=== PATIENT | male | born 1940 | race Hispanic/Latino ===

== ENCOUNTER 2018-03-14 11:45 | Inpatient (IN) | payer BC, MEDICARE ==
[2018-03-14] MEDS ORDERED: Vancomycin 1gm in NS 250ml 1 GM/250 ML BAG IVPB STA (11:59)
[2018-03-14 12:00] VITALS: BMI 25.1
--- NOTE | 2018-03-14 12:01 | ED PDOC ---
Arrival/HPI - General Time Seen by Provider: 03/14/18 11:54 - History of Present Illness Narrative History of Present Illness (Text): 03/14/18 12:00 Patient is a 78 y/o M presenting with cellulitis. PMD reports that he has been treating patient for worsening lower extremity edema. Recent echo negative. Patient arrived for follow-up visit today with PMD and was found to have weeping cellulitis to the extent that shoe was saturated. Patient reports that he has had a small wound to his R bullock x 3 months. He reports that it recently got bigger with extensive redness and worsening pain. Denies fever. Reports that he stopped taking his lasix 3 days ago 03/14/18 12:25 Family/Social History Family/Social History: No Known Family HX Allergies/Home Meds Allergies/Adverse Reactions: Allergies No Known Allergies Allergy (Verified 03/14/18 11:57) Home Medications: Home Meds Medication Instructions Recorded Confirmed Aspirin [Adult Aspirin] 1 tab PO DAILY 03/14/18 03/14/18 Clopidogrel [Plavix] 1 tab PO DAILY 03/14/18 03/14/18 Furosemide [Lasix] 1 tab PO TID 03/14/18 03/14/18 Levothyroxine Sodium [Levoxyl] 1 tab PO DAILY 03/14/18 03/14/18 Potassium Chloride [Klor-Con 1 cap PO DAILY 03/14/18 03/14/18 Sprinkle] Tamsulosin [Flomax] 1 cap PO DAILY 03/14/18 03/14/18 traMADol [Ultram] 1 tab PO DAILY PRN 03/14/18 03/14/18 Review of Systems - Review of Systems Constitutional: absent: Fatigue, Weight Change ENT: absent: Hearing Changes Respiratory: absent: SOB, Cough, Sputum, Wheezing Cardiovascular: Edema. absent: Chest Pain, Palpitations, Calf Pain, CHOW, Orthopnea, Syncope Gastrointestinal: absent: Abdominal Pain, Constipation, Diarrhea, Nausea, Vomiting Genitourinary Male: absent: Dysuria Musculoskeletal: Arthralgias Skin: Skin Lesions, Ulcer, Cellulitis Neurological: absent: Headache, Dizziness, Focal Weakness Endocrine: absent: Diaphoresis Hemo/Lymphatic: absent: Adenopathy Psychiatric: absent: Anxiety, Depression Physical Exam Vital Signs Temp Pulse Resp BP Pulse Ox 03/14/18 14:17 146/89 03/14/18 12:18 98.1 F 86 17 160/86 H 98 Temperature: Afebrile Blood Pressure: Normal Pulse: Regular Respiratory Rate: Normal Appearance: Positive for: Well-Appearing, Non-Toxic, Comfortable Pain Distress: None Mental Status: Positive for: Alert and Oriented X 3 - Systems Exam Head: Present: Atraumatic, Normocephalic Pupils: Present: PERRL Extroacular Muscles: Present: EOMI Conjunctiva: Present: Normal Neck: Present: Normal Range of Motion Respiratory/Chest: Present: Clear to Auscultation, Good Air Exchange. No: Respiratory Distress, Accessory Muscle Use Cardiovascular: Present: Regular Rate and Rhythm, Normal S1, S2. No: Murmurs Abdomen: No: Tenderness, Distention Upper Extremity: Present: Normal Inspection Lower Extremity: Present: Other (LLE: scant edema, RLE: pitting edema with weeping erythema extending into toes and to mid calf. Draining wound, worse at anterior surface of mid bullock. Warm. No calf tenderness. Normal ROM and strength. ) Neurological: Present: GCS=15, CN II-XII Intact Medical Decision Making ED Course and Treatment: 03/14/18 12:17 Patient has extensive cellulitis that crosses joint. He will need IV antibiotics and further evaluation by podiatry. His history is also complicated by femoral stent to R leg. Arterial duplex ordered due to hx of R femoral stent. Dose of lasix given due to home non-compliance. 03/14/18 12:26 EKG shows NSR at 86bpm wtih non-specific ST changes. Cxray negative 03/14/18 14:08 Duplex shows: 1. Severely abnormal ABIs at rest. 2. Aortoiliac disease. 3. Bilateral SFA disease. 4. The ankle and metatarsal waveforms are essentially flat bilaterally Dr. Cezar Escobar aware - RAD Interpretation Radiology Orders: 03/14/18 11:58 CHEST PORTABLE [RAD] Stat - Medication Orders Current Medication Orders: Discontinued Medications Furosemide (Lasix) 40 mg IVP STAT STA Stop: 03/14/18 12:39 Last Admin: 03/14/18 14:17 Dose: 40 mg MAR Blood Pressure Document 03/14/18 14:17 HP (Rec: 03/14/18 14:17 HP [id number]) Blood Pressure Blood Pressure (100/60-150/90) 146/89 IVP Administration Document 03/14/18 14:17 HP (Rec: 03/14/18 14:17 HP [id number]) Charges for Administration # of IVP Administrations 1 Vancomycin HCl (Vancomycin 1gm) 1 gm in 250 mls @ 167 mls/hr IVPB STAT STA PRN Reason: Protocol Stop: 03/14/18 13:28 Last Admin: 03/14/18 12:36 Dose: 167 mls/hr eMAR Start Stop Document 03/14/18 12:36 HP (Rec: 03/14/18 12:36 HP [id number]) Intravenous Solution Start Date 03/14/18 Start Time 12:36 End Date 03/14/18 End time 14:05 Total Infusion Time 89 Morphine Sulfate (Morphine) 2 mg IVP STAT STA Stop: 03/14/18 12:13 Last Admin: 03/14/18 12:35 Dose: 2 mg MAR Pain Assessment Document 03/14/18 12:35 HP (Rec: 03/14/18 12:36 HP [id number]) Pain Reassessment Is this a pain reassessment? No IVP Administration Document 03/14/18 12:35 HP (Rec: 03/14/18 12:36 HP [id number]) Charges for Administration # of IVP Administrations 1 Disposition/Present on Arrival - Present on Arrival Any Indicators Present on Arrival: No - Disposition Have Diagnosis and Disposition been Completed?: Yes Diagnosis: Cellulitis, Leg wound, right, Anemia, PVD (peripheral vascular disease) Disposition: HOSPITALIZED Disposition Time: 12:18 Patient Plan: Admission Patient Problems: Current Active Problems Problem Status Onset Anemia Acute Cellulitis Acute Leg wound, right Acute PVD (peripheral vascular disease) Acute Condition: FAIR
[2018-03-14] MEDS ORDERED: Morphine 4 mg/ml ISec IVP STA (12:12)
[2018-03-14 12:37] LABS: BASO # 0.02 K/mm3 (0.0-2.0); BASO % 0.2 % (0.0-3.0); EOS # 0.1 (0.0-0.7); EOS % 0.9 % (1.5-5.0); GRAN # 6.84 (1.4-6.5); GRAN % 74.1 % (50.0-68.0); HEMOGLOBIN 11.9 g/dL (14.0-18.0); LYMPH # 1.5 (1.2-3.4); LYMPH % 16.6 % (22.0-35.0); MEAN CELL VOLUME 87.4 fl (80.0-105.0); MEAN CORPUSCULAR HEMOGLOBIN 28.7 pg (25.0-35.0); MEAN CORPUSCULAR HGB CONC 32.9 g/dl (31.0-37.0); MEAN PLATELET VOLUME 9.9 fl (7.0-11.0); MONO # 0.8 (0.1-0.6); MONO % 8.2 % (1.0-6.0); RBC 4.14 10^6/uL (3.5-6.1); RED CELL DISTRIBUTION WIDTH 14.7 % (11.5-14.5); WHITE BLOOD COUNT 9.2 10^3/ul (4.5-11.0)
[2018-03-14 12:45] LABS: ALB/GLOB RATIO 1.3 (1.1-1.8); ALT/SGPT 27 U/L (7-56); AST/SGOT 29 U/L (17-59); BLOOD UREA NITROGEN 13 mg/dL (7-21); CALCIUM 9.4 mg/dL (8.4-10.5); GFR AFRICAN-AMERICAN > 60; GFR NON-AFRICAN AMERICAN > 60
--- NOTE | 2018-03-14 13:02 | RAD ---
HISTORY: lower extremity edema COMPARISON: No prior. FINDINGS: LUNGS: No active pulmonary disease. PLEURA: No significant pleural effusion identified, no pneumothorax apparent. CARDIOVASCULAR: Normal. OSSEOUS STRUCTURES: No significant abnormalities. VISUALIZED UPPER ABDOMEN: Normal. OTHER FINDINGS: None. IMPRESSION: No active disease.
--- NOTE | 2018-03-14 14:04 | US ---
PROCEDURE: Lower extremity JONAH exam HISTORY: Peripheral vascular disease. Previous stent 8 years ago. Nonhealing ulcer right lower extremity. PHYSICIAN(S): Yasir Reed MD. FINDINGS: The resting ABIs are severely abnormal. The right JONAH is not obtainable. The left JONHA is severely abnormal, 0.30 The brachial systolic pressures are symmetric. 50-70 mm gradients are seen between the arm and high thigh pressures bilaterally. The high thigh waveforms are pulsatile with relatively normal upstrokes. Findings are consistent with aortoiliac disease. The calf PVR waveforms are severely blunted and do not augment. This is consistent with bilateral SFA disease. The ankle and metatarsal waveforms are essentially flat bilaterally. IMPRESSION: 1. Severely abnormal ABIs at rest. 2. Aortoiliac disease. 3. Bilateral SFA disease. 4. The ankle and metatarsal waveforms are essentially flat bilaterally
[2018-03-14] MEDS ORDERED: Morphine 5 MG/ML SYRINGE IVP STA (15:31)
--- NOTE | 2018-03-14 15:40 | US ---
PROCEDURE: Right lower extremity venous US HISTORY: Leg pain and swelling. Evaluate for DVT. PHYSICIAN(S): Yasir Reed M.D. TECHNIQUE: Duplex sonography and color-flow Doppler with graded compression were used to evaluate the deep venous system of the right lower extremity. FINDINGS: The visualized deep venous system of the right lower extremity is sonographically normal and compressible. Normal waveforms and augmentation are seen. There is no sonographic evidence for deep venous thrombosis in the visualized segments of the right lower extremity. IMPRESSION: 1. No sonographic evidence for deep venous thrombosis in the visualized segments of the right lower extremity.
[2018-03-14] MEDS ORDERED: Sodium Chloride 0.9% 1,000 ML IV SCH (15:45)
[2018-03-14] MEDS ORDERED: Lidocaine 2% Inj (20ml) ONE (15:47)
[2018-03-14] MEDS ORDERED: Iodixanol 320 MG/ML 200 ML BOTTLE IV ONE (15:48)
[2018-03-14] MEDS ORDERED: Iodixanol 320 MG/ML 100 ML BOTTLE IV ONE ×2 (15:48→17:30)
[2018-03-14] MEDS ORDERED: Nitroglycerin 50mg in D5W 50 MG/250 ML BOTTLE IV ONE (15:51)
[2018-03-14] MEDS ORDERED: Midazolam 2 MG/2 ML VIAL ONE ×3 (16:36→17:13)
[2018-03-14] MEDS ORDERED: Verapamil 2 ML ONE (16:57)
[2018-03-14] MEDS ORDERED: Sodium Chloride 0.45% 1,000 ML IV SCH (19:00)
[2018-03-14] MEDS ORDERED: Morphine 4 mg/ml ISec ONE (19:26)
--- NOTE | 2018-03-14 19:29 | VASCULAR ---
PROCEDURE: 1. Abdominal aortogram and bilateral lower extremity runoff with right selective views 2. Right SFA CS I atherectomy, drug-eluting balloon angioplasty, and distal Supera stent placement 3. Right proximal to mid anterior tibial artery CS I atherectomy and balloon angioplasty 4. Left common iliac artery angioplasty and stent placement HISTORY: Severe peripheral vascular disease. Previous left SFA stent which has occluded. Pain and ischemic ulceration right calf and foot. Early rest pain left foot. PHYSICIAN(S): Yasir Reed M.D. TECHNIQUE: The relative risks and indications of the procedure were explained to the patient and his son and consent obtained. The patient was placed supine on the arteriogram table and the left groin prepped and draped in the usual sterile fashion. Conscious sedation and monitoring were provided throughout the procedure by a nurse. Via a left common femoral artery approach, a 5 St Helenian sheath was placed in the left groin. There was a stenosis of the mid left common iliac artery which initially impeded guidewire passage. Through the sheath and over a guidewire, a 5 St Helenian flush catheter was placed in the abdominal aorta at the level of the renal arteries and a PA DSA abdominal aortogram performed. The catheter was pulled down to the aortic bifurcation and bilateral oblique DSA pelvic arteriograms performed. Overlapping bilateral lower extremity DSA arteriograms were obtained from the inguinal ligaments to the ankles A 0.035 angled Glidewire was advanced over the bifurcation and placed in the proximal right SFA. A 7 St Helenian 45 cm destination sheath was placed in the right common femoral artery. Subintimal cross age of the diffuse disease in the right SFA was obtained. An out back catheter was necessary for re-entry in the adductor canal. 0.018 guidewire and catheter were used to cross the diffuse disease in the proximal to mid right anterior tibial artery. 0.017 support wire was placed at the ankle in the right anterior tibial artery. CS I atherectomy of the disease in the right popliteal artery below the knee was performed with a 1.25 micro justen. Right popliteal artery was dilated initially with a 4 mm balloon and subsequently with a 5 mm drug-eluting balloon. A good angiographic result was obtained. CS I atherectomy of the proximal to mid right anterior tibial artery was performed with 1.25 mm micro justen. Long segment dilatation of the right anterior tibial artery is proximal mid segment was performed with a 3.0 mm balloon. A good angiographic result was obtained. Diffuse disease in the right SFA was dilated with 5 mm, 6 mm, and 7 mm balloons. 6.5 x 120 mm Supera stent was placed in the mid to distal right SFA along a subintimal course. Is was dilated with 6 mm balloon. A good angiographic result was obtained. No significant gradient was demonstrated across the right common iliac artery. A 20 mm gradient was demonstrated across the left common iliac artery stenosis. The left common iliac artery was dilated with a 9 mm balloon. Subsequently a 10 mm x 59 mm balloon expandable stent was deployed in the left common iliac artery. Completion angiograms were performed. The sheath was removed hemostasis obtained with a Perclose device. The patient tolerated the procedure well. FINDINGS: There are single renal arteries bilaterally which are widely patent and normal in appearance. The nephrograms are symmetric in appearance. The infrarenal abdominal aorta is smoothly calcified and widely patent without radiographically significant stenosis.. There is a focal stenosis in the mid left common iliac artery. No pressure gradient was demonstrated across the calcified right common iliac artery. The internal iliac arteries are patent bilaterally. The external iliac arteries are patent bilaterally. Right lower extremity: The right common femoral artery is patent. The right profunda femoral artery is hypertrophied. There is severe diffuse multi focal disease of the entire right SFA. Multiple stenoses of the right popliteal artery above the knee are present. There is a critical stenosis of the distal right popliteal artery. There is severe right trifurcation and tibial occlusive disease. The right tibioperoneal trunk is occluded. The right anterior tibial artery is patent with multi focal severe disease in its proximal mid 3rd. There is a stenosis of the distal right anterior tibial artery. The right dorsalis pedis artery is patent. There is severe disease of the plantar arch. The right posterior tibial artery reconstitutes proximally. The right posterior tibial artery is occluded distally just above the ankle. Left lower extremity: Left common femoral artery is patent. The left profunda femoral artery is hypertrophied The left superficial femoral artery is occluded at its origin. The previously placed left SFA stent is occluded. There is reconstitution of the left popliteal artery above the patella. The left popliteal artery is continuous. There is severe left trifurcation disease. The left posterior tibial artery is occluded. There is severe disease of the proximal left anterior tibial artery. The left peroneal artery is poorly opacified.. IMPRESSION: 1.Successful long segment right SFA and popliteal CS I atherectomy, drug-eluting balloon angioplasty, and Supera stent placement. 2. Successful proximal to mid right anterior tibial artery CS I atherectomy and angioplasty. 3. Left common iliac artery angioplasty and stent placement. 4. Occluded left SFA stent. 5. Severe bilateral tibial occlusive disease.
[2018-03-14] MEDS: Morphine 5 MG/ML SYRINGE IVP PRN (19:30)
[2018-03-14] MEDS: Sodium Chloride 0.45% 1,000 ML IV SCH (21:04)
[2018-03-14] MEDS: Oxycodone/Acetaminophen 5/325 mg Tab PO PRN (21:05)
[2018-03-14] MEDS: Ceftaroline 600 MG in Sodium Chloride 0.9% 100 ML IVPB SCH (22:10)
[2018-03-14] MEDS ORDERED: HYDROmorphone 0.5 mg/0.5 ml ISec IVP ONE (23:58)
--- NOTE | 2018-03-15 06:35 | CP.PCM.PN ---
Subjective - Date & Time of Evaluation Date of Evaluation: 03/15/18 Time of Evaluation: 06:33 - Subjective Subjective: Patient was seen at bedside. He complained of pain in right leg more than left leg pain. Had received morphine sulfate 5 mg IV at 7:30PM in the ER and also received percocet 5/325 at 9PM. Has cellulitis of right leg. No other complaints. Medical record was reviewed. This 78 year old male was admitted for bilateral pedal edema. Has PMH of gout,tobacco use. Objective - Vital Signs/Intake and Output Vital Signs (last 24 hours): Temp Pulse Resp BP Pulse Ox 99.0 F 94 H 18 105/54 L 95 03/15/18 03:00 03/15/18 03:00 03/15/18 03:00 03/15/18 03:00 03/15/18 03:00 Intake and Output: 03/14/18 03/15/18 18:59 06:59 Intake Total 360 Output Total 250 Balance 110 - Medications Medications: Current Medications Acetaminophen (Tylenol 325mg Tab) 650 mg PO Q4H PRN PRN Reason: Pain, Mild (1-3) Aspirin (Ecotrin) 81 mg PO DAILY JUAN Clopidogrel Bisulfate (Plavix) 75 mg PO DAILY JUAN Furosemide (Lasix) 40 mg PO TID JUAN Sodium Chloride (Sodium Chloride 0.45%) 1,000 mls @ 100 mls/hr IV .Q10H [facility] Stop: 03/15/18 14:00 Last Admin: 03/14/18 21:04 Dose: 100 mls/hr Ceftaroline Fosamil 600 mg/ (Sodium Chloride) 100 mls @ 100 mls/hr IVPB Q12 JUAN PRN Reason: Protocol Stop: 03/21/18 22:01 Last Admin: 03/14/18 22:10 Dose: 100 mls/hr Levothyroxine Sodium (Synthroid) 50 mcg PO DAILY JUAN Morphine Sulfate (Morphine) 5 mg IVP Q6H PRN PRN Reason: Pain, severe (8-10) Last Admin: 03/14/18 19:30 Dose: 5 mg Ondansetron HCl (Zofran Inj) 4 mg IVP ONCE PRN PRN Reason: Nausea/Vomiting Oxycodone/Acetaminophen (Percocet 5/325 Mg Tab) 1 tab PO Q4H PRN PRN Reason: Pain, moderate (4-7) Stop: 03/17/18 18:48 Last Admin: 03/14/18 21:05 Dose: 1 tab Potassium Chloride (Klor-Con 10) 10 meq PO BRK JUAN Tamsulosin HCl (Flomax) 0.4 mg PO DAILY JUAN - Labs Labs: 03/14/18 12:30 03/14/18 12:30 - Constitutional Appears: Well, No Acute Distress - Head Exam Head Exam: ATRAUMATIC, NORMAL INSPECTION, NORMOCEPHALIC - Eye Exam Eye Exam: Normal appearance - ENT Exam ENT Exam: Normal External Ear Exam - Neck Exam Neck Exam: Normal Inspection - Respiratory Exam Respiratory Exam: NORMAL BREATHING PATTERN - Cardiovascular Exam Cardiovascular Exam: REGULAR RHYTHM. absent: JVD - GI/Abdominal Exam GI & Abdominal Exam: absent: Distended - Rectal Exam Rectal Exam: Deferred - Exam Additional comments: Deferred. - Extremities Exam Additional comments: both legs swilling present. L>R. Right leg erythema present. - Back Exam Back Exam: NORMAL INSPECTION - Neurological Exam Neurological Exam: Alert, Awake, Oriented x3 - Psychiatric Exam Psychiatric exam: Normal Affect, Normal Mood - Skin Skin Exam: Normal Color Assessment and Plan - Assessment and Plan (Free Text) Assessment: Cellulitis of right leg. History of gout . History of tobacco use. Anemia. Plan: Dilaudid 2 mg IV x 1. Continue present management.
[2018-03-15] MEDS: Morphine 5 MG/ML SYRINGE IVP PRN ×2 (06:57→15:09)
[2018-03-15 08:23] LABS: BASO # 0.02 K/mm3 (0.0-2.0); BASO % 0.2 % (0.0-3.0); EOS # 0.1 (0.0-0.7); EOS % 0.8 % (1.5-5.0); GRAN # 7.79 (1.4-6.5); HEMOGLOBIN 10.5 g/dL (14.0-18.0); LYMPH # 1.3 (1.2-3.4); LYMPH % 12.5 % (22.0-35.0); MEAN CELL VOLUME 87.1 fl (80.0-105.0); MEAN CORPUSCULAR HEMOGLOBIN 27.6 pg (25.0-35.0); MEAN CORPUSCULAR HGB CONC 31.6 g/dl (31.0-37.0); MEAN PLATELET VOLUME 10.5 fl (7.0-11.0); MONO % 9.5 % (1.0-6.0); RBC 3.81 10^6/uL (3.5-6.1); RED CELL DISTRIBUTION WIDTH 14.8 % (11.5-14.5); WHITE BLOOD COUNT 10.1 10^3/ul (4.5-11.0)
[2018-03-15 08:31] LABS: INR 1.31 (0.93-1.08); PROTHROMBIN TIME 15.2 SECONDS (9.4-12.5)
[2018-03-15 08:39] LABS: BLOOD UREA NITROGEN 15 mg/dL (7-21); CALCIUM 8.4 mg/dL (8.4-10.5); GFR AFRICAN-AMERICAN > 60; GFR NON-AFRICAN AMERICAN 53
--- NOTE | 2018-03-15 08:42 | CARD ---
APPROVED REPORT EKG Measurement Heart [id number] <Conclusion> Sinus rhythm with premature atrial complexes Nonspecific ST and T wave abnormality
--- NOTE | 2018-03-15 09:44 | HP ---
DATE OF EXAM: 03/14/2018 CHIEF COMPLAINT: Legs are swollen, terrible pain in the right leg. HISTORY OF PRESENT ILLNESS: This is a 78-year-old male, I have known for many many years who is seen in the office approximately 5 weeks ago for bilateral +2 soft edema of the lower extremities. He was started on diuretics. Labs were drawn. His renal function and liver function to be normal. Echocardiogram and thallium stress were ordered as part of cardiac workup. Patient had his echocardiogram at [facility] and returned yesterday for his thallium stress. His Lasix had been increased by the hose builder at the time of the echo but apparently patient stopped taking it some four days ago because he thought the Lasix was making him constipated. In course of that four days, the legs became a lot more swollen. He developed terrible pain in the right calf even at rest. The legs became red and started weeping. He went for thallium stress test yesterday at [facility] and was told by hose builder, it could not be done because of the weeping and the erythema. I spoke to the hose builder, who placed a call to me personally. We spoke and patient was advised to come to the office this morning. He was seen with wet socks and pants from the oozing from the right leg. He was barely able to walk because of pain and was sent to emergency room. In the ER, arterial Dopplers were done. Dr. Yasir Reed was called as he had placed a stent in his left femoral artery several years ago, cellulitic legs were treated with antibiotics. Ulcers were dressed. Patient was admitted and then taken to the vascular lab with Dr. Yasir Reed as his ABIs were markedly abnormal. Procedure went well with the right leg was recanalized to have good flow. A good pulse on the right. The pulse on the left is palpable, but weak. Overall this explains the severe pain in the leg at rest and perhaps the erythema, cellulitis. It does not explain the presentation of bilateral edema two weeks ago. Venous Dopplers were ordered as well as the CT scan of the abdomen to rule out any intraabdominal pathology causing either lymphatic or venous obstruction. PAST MEDICAL HISTORY: Negative for hypertension, diabetes, cholesterol, tuberculosis, asthma, seizures and COPD. He did have an episode of the gout in 2016. Past history is negative for stroke, TIA, MS, coronary artery disease or cancers of any type. Patient had hyperthyroidism in 1989, treated with radioiodine twice in 1991 and 1996 by and then by Dr. Padilla. He had a history of peptic ulcer disease with a right femoral stent placed by Dr. Yasir Reed on 04/21/2009. He also has a rectal fissure repair in 1969 by . He had a colonoscopy with Dr. Garza in 2008 and in 07/2016. He had a stress test in 11/2008. He gets the flu shot yearly. His last Pneumovax vaccine is in 2007 and then again in 2011. ALLERGIES: HE HAS NO KNOWN ALLERGIES. SOCIAL HISTORY: Quit smoking in 2009. Does not drink alcohol, drinks decaffeinated coffee and tea approximately 4 to 5 cups a day. FAMILY HISTORY: He has family history of colon cancer with his mother at the age 62. His father at age 56 of brain tumor. He is the oldest of two siblings. He has one sister who has history of depression. He is since 2014. He has three sons, Asher Velasco, (who is handicapped and lives with patient) and Miguel Angel. 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 The office record showed problem list include hyperthyroidism, peptic ulcer disease, benign prostatic hypertrophy and chronic low back pain. REVIEW OF SYSTEMS: Unobtainable as the patient is in severe right leg pain causing him to barely be able to ambulate. HOME MEDICATIONS: Include Levoxyl 50 mcg, aspirin 81, Flomax 0.4, Plavix 75, Lasix 20 to 60 mg daily and tramadol. PHYSICAL EXAMINATION: GENERAL: The patient was seen in the office earlier this morning and again in the recovery room late this evening. HEENT: On exam in the recovery room, head and neck are unremarkable. Conjunctivae are pink. Mucous membranes are moist. NECK: Supple without masses. LUNGS: Show good aeration, right and left. HEART: Regular, not tachycardic, no ectopy noted. ABDOMEN: Thin, soft. There was tenderness in the left upper quadrant near the groin at the insertion site. There is a weak, but palpable pulse on the left foot, but an even stronger pulse in the newly canalized right leg. IMPRESSION: 1. Five week history of bilateral pedal edema. 2. Normal recent echocardiogram, copy enclosed in patient's paper chart. 3. Peripheral artery disease with revascularization of the left femoral artery and stent in 2008. 4. History of tobacco use. 5. Marked cellulitis of the right lower extremity. PLAN: Emergent catheterization leg pain at rest and underlying ischemia of the right leg. There were also improved flow and antibiotics delivery into the right leg cellulitis. Unfortunately, he does not explain to me the reason for his five weeks history of bilateral pedal edema. Again renal function and hepatic function seems normal on labs. Echocardiogram is read just recently. We will check venous Dopplers bilaterally as well as CT scan of the abdomen to just rule out any lymphatic or venous obstruction. Infectious Disease consultants requested on antibiotics for the cellulitis. Close followup with Dr. Yasir Reed is appreciated, Cardiology opinion of Dr. Camarillo and Dr. Vasquez and for the sake of completing the stress test already ordered as an outpatient. Cezar Porter MD RHETT
[2018-03-15] MEDS ORDERED: POTASSIUM CHLORIDE PO SCH (10:00)
[2018-03-15] MEDS: Sodium Chloride 0.45% 1,000 ML IV SCH (10:09)
[2018-03-15] MEDS: Potassium Chloride 10 mEq ER Tab PO SCH (10:25)
[2018-03-15] MEDS: Oxycodone/Acetaminophen 5/325 mg Tab PO PRN ×2 (10:26→18:29)
[2018-03-15] MEDS: Ceftaroline 600 MG in Sodium Chloride 0.9% 100 ML IVPB SCH (10:27)
[2018-03-15] MEDS: Levothyroxine 50 MCG TAB PO SCH (10:27)
--- NOTE | 2018-03-15 14:07 | CP.PCM.CON ---
History of Present Illness - History of Present Illness History of Present Illness: 78 year old male with PMH of peptic ulcer disease, history of hyperthyroidism, gout, severe peripheral arterial disease S/P left sided stenting previously came in to [facility] [place] complaining of severe pain on the right foot and leg, associated with skin breakdown on the leg with weeping. The pain was worse on movement, but still occurred while at rest. He denies soaking his feet in water, denies walking barefoot on soil, no nausea or vomiting, no fever or chills, no headache or dizziness, no chest pain, no SOB, no diarrhea, no dysuria. The patient underwent angioplasty and stenting yesterday of occluded lower extremity blood vessels. Infectious diseases consult is requested to further evaluate and manage. Review of Systems - Review of Systems All systems: reviewed and no additional remarkable complaints except (as per HPI ) Past Patient History - Infectious Disease Hx of Infectious Diseases: None - Past Social History Smoking Status: Never Smoked - CARDIAC Hx Cardiac Disorders: Yes Hx Congestive Heart Failure: Yes Hx Peripheral Vascular Disease: Yes - PULMONARY Hx Respiratory Disorders: No - NEUROLOGICAL Hx Neurological Disorder: No - HEENT Hx HEENT Problems: No - RENAL Hx Chronic Kidney Disease: No - ENDOCRINE/METABOLIC Hx Endocrine Disorders: Yes Hx Hyperthyroidism: Yes (s/p thyroid ablation) Hx Hypothyroidism: Yes - HEMATOLOGICAL/ONCOLOGICAL Hx Blood Disorders: No - INTEGUMENTARY Hx Dermatological Problems: Yes Other/Comment: cellulitis to right lower extremity - MUSCULOSKELETAL/RHEUMATOLOGICAL Hx Musculoskeletal Disorders: Yes Hx Back Pain: Yes Hx Falls: No Other/Comment: unsteady gait - GASTROINTESTINAL Hx Gastrointestinal Disorders: No - GENITOURINARY/GYNECOLOGICAL Hx Genitourinary Disorders: Yes Other/Comment: BPH - PSYCHIATRIC Hx Psychophysiologic Disorder: No - SURGICAL HISTORY Hx Surgeries: Yes Other/Comment: R femoral stent. Thyroid Ablation Meds Allergies/Adverse Reactions: Allergies Allergy/AdvReac Type Severity Reaction Status Date / Time No Known Allergies Allergy Verified 03/14/18 11:57 - Medications Medications: Current Medications Acetaminophen (Tylenol 325mg Tab) 650 mg PO Q4H PRN PRN Reason: Pain, Mild (1-3) Aspirin (Ecotrin) 81 mg PO DAILY [facility] Clopidogrel Bisulfate (Plavix) 75 mg PO DAILY [facility] Furosemide (Lasix) 40 mg PO TID [facility] Sodium Chloride (Sodium Chloride 0.45%) 1,000 mls @ 100 mls/hr IV .Q10H [facility] Stop: 03/15/18 14:00 Last Admin: 03/15/18 10:09 Dose: 100 mls/hr Ceftaroline Fosamil 600 mg/ (Sodium Chloride) 100 mls @ 100 mls/hr IVPB Q12 [facility] PRN Reason: Protocol Stop: 03/21/18 22:01 Last Admin: 03/14/18 22:10 Dose: 100 mls/hr Levothyroxine Sodium (Synthroid) 50 mcg PO DAILY [facility] Morphine Sulfate (Morphine) 5 mg IVP Q6H PRN PRN Reason: Pain, severe (8-10) Last Admin: 03/15/18 06:57 Dose: 5 mg Ondansetron HCl (Zofran Inj) 4 mg IVP ONCE PRN PRN Reason: Nausea/Vomiting Oxycodone/Acetaminophen (Percocet 5/325 Mg Tab) 1 tab PO Q4H PRN PRN Reason: Pain, moderate (4-7) Stop: 03/17/18 18:48 Last Admin: 03/14/18 21:05 Dose: 1 tab Potassium Chloride (Klor-Con 10) 10 meq PO BRK [facility] Tamsulosin HCl (Flomax) 0.4 mg PO DAILY [facility] Physical Exam - Constitutional Appears: Chronically Ill - Head Exam Head Exam: NORMAL INSPECTION - ENT Exam ENT Exam: Mucous Membranes Moist - Neck Exam Neck exam: Negative for: Meningismus - Respiratory Exam Respiratory Exam: Decreased Breath Sounds - Cardiovascular Exam Cardiovascular Exam: +S1, +S2 - GI/Abdominal Exam GI & Abdominal Exam: Soft. absent: Tenderness - Extremities Exam Additional comments: right leg with some honey-crusted lesions on the lower leg area Results - Vital Signs Recent Vital Signs: Last Vital Signs Temp 98.3 F 03/15/18 08:17 Pulse 88 03/15/18 08:17 Resp 20 03/15/18 08:17 BP 110/57 L 03/15/18 08:17 Pulse Ox 97 03/15/18 08:17 - Labs Result Diagrams: 03/15/18 08:10 03/15/18 08:10 Labs: Laboratory Results - last 24 hr 03/14/18 03/14/18 03/15/18 12:30 12:30 08:10 WBC 9.2 RBC 4.14 Hgb 11.9 L Hct 36.2 L MCV 87.4 MCH 28.7 MCHC 32.9 RDW 14.7 H Plt Count 224 MPV 9.9 Gran % 74.1 H Lymph % (Auto) 16.6 L [place] % (Auto) 8.2 H Eos % (Auto) 0.9 L Baso % (Auto) 0.2 Gran # 6.84 H Lymph # (Auto) 1.5 [place] # (Auto) 0.8 H Eos # (Auto) 0.1 Baso # (Auto) 0.02 PT INR Sodium 139 138 Potassium 4.2 4.0 Chloride 100 101 Carbon Dioxide 29 28 Anion Gap 15 13 BUN 13 15 Creatinine 1.1 1.3 Est GFR ( Amer) > 60 > 60 Est GFR (Non-Af Amer) > 60 53 Random Glucose 110 110 Calcium 9.4 8.4 Phosphorus 3.6 Magnesium 1.9 Total Bilirubin 0.5 AST 29 ALT 27 Alkaline Phosphatase 82 Total Creatine Kinase 84 Total Protein 7.2 Albumin 4.0 Globulin 3.2 Albumin/Globulin Ratio 1.3 03/15/18 03/15/18 08:10 08:10 WBC 10.1 RBC 3.81 Hgb 10.5 L Hct 33.2 L MCV 87.1 MCH 27.6 MCHC 31.6 RDW 14.8 H Plt Count 214 MPV 10.5 Gran % 77.0 H Lymph % (Auto) 12.5 L [place] % (Auto) 9.5 H Eos % (Auto) 0.8 L Baso % (Auto) 0.2 Gran # 7.79 H Lymph # (Auto) 1.3 [place] # (Auto) 1.0 H Eos # (Auto) 0.1 Baso # (Auto) 0.02 PT 15.2 H INR 1.31 H Sodium Potassium Chloride Carbon Dioxide Anion Gap BUN Creatinine Est GFR ( Amer) Est GFR (Non-Af Amer) Random Glucose Calcium Phosphorus Magnesium Total Bilirubin AST ALT Alkaline Phosphatase Total Creatine Kinase Total Protein Albumin Globulin Albumin/Globulin Ratio Assessment & Plan - Assessment and Plan (Free Text) Plan: Assessment consider right leg skin and skin structure infection associated with severe peripheral vascular disease S/P angioplasty and stenting POD #1 peptic ulcer disease history of hyperthyroidism gout severe peripheral arterial disease S/P left sided stenting Plan Started patient on Teflaro pending blood and wound cx will monitor clinically
--- NOTE | 2018-03-15 15:55 | US ---
HISTORY: Leg pain and swelling. Evaluate for DVT PHYSICIAN(S): Yasir Reed MD. TECHNIQUE: Duplex sonography and color-flow Doppler with graded compression were used to evaluate the deep venous systems of both lower extremities. The exam is somewhat limited by edema. FINDINGS: The visualized deep venous systems of both lower extremities are sonographically normal and compressible. Normal wave forms and augmentation are seen. There is no sonographic evidence for deep venous thrombosis in the visualized segments of both lower extremities. IMPRESSION: No sonographic evidence for deep venous thrombosis in the visualized segments of both lower extremities.
[2018-03-15] MEDS: Magnesium Hydroxide Susp 30 ml UD PO PRN (18:24)
--- NOTE | 2018-03-16 00:10 | PN ---
DATE: 03/15/2018 DAILY PROGRESS NOTE SUBJECTIVE: The patient is a 78-year-old male with a history of gout, who is admitted with history of gout, congestive heart failure, benign prostatic hypertrophy, coronary artery disease, hypothyroidism, who was admitted yesterday with cellulitis and +2 soft edema of the lower extremities. The patient had apparently stopped taking his diuretics at home thinking that the furosemide was making him constipated. When seen today, he is awake, alert and oriented. He does complain of pain/burning in his legs. After his admission yesterday, the right lower extremity was revascularized by Dr. Yasir Reed. On admission, his chest x-ray showed no acute disease. EKG showed regular sinus rhythm with PACs. He is currently being currently being treated with ceftaroline 400 mg every 12 hours intravenously. He is also receiving aspirin, Flomax, K-Dur, Lasix 40 mg three times a day, morphine sulfate as needed for pain, Plavix and Synthroid. This morning, he was afebrile. Blood pressure is 110/57, heart rate is 88. White blood cell count this morning is 10.1, hemoglobin and hematocrit are 10.5 and 33.2, platelet count is 214. Sodium is 138, potassium 4, blood urea nitrogen 15, creatinine 1.3 and glucose is 110. When seen, the patient is lying in bed. He is awake, alert and oriented. He only complains of the burning sensation in his lower extremities; however, says it was bearable. He does admit to constipation, therefore milk of magnesia is ordered. We are continuing to follow the patient closely, continuing with his current regimen for antibiotics. The patient is also being followed by Dr. Dixon, the Infectious Disease specialist. The patient is to be reevaluated in the morning. Goyo Porter MD
[2018-03-16] MEDS: Morphine 5 MG/ML SYRINGE IVP PRN ×2 (07:05→13:36)
[2018-03-16] MEDS ORDERED: Iohexol 240 (50 ml) ONE (07:59)
[2018-03-16] MEDS: Potassium Chloride 10 mEq ER Tab PO SCH (10:31)
[2018-03-16] MEDS: Oxycodone/Acetaminophen 5/325 mg Tab PO PRN ×3 (10:31→22:20)
[2018-03-16] MEDS: Levothyroxine 50 MCG TAB PO SCH (10:31)
--- NOTE | 2018-03-16 13:48 | CP.PCM.PN ---
Subjective - Date & Time of Evaluation Date of Evaluation: 03/16/18 Time of Evaluation: 12:45 - Subjective Subjective: No fevers, not in distress, less pain in the right foot and leg but still with weeping. Objective - Vital Signs/Intake and Output Vital Signs (last 24 hours): Temp Pulse Resp BP Pulse Ox 100 F H 86 18 120/70 100 03/15/18 14:00 03/15/18 14:00 03/15/18 14:00 03/15/18 18:29 03/15/18 14:00 Intake and Output: 03/16/18 03/16/18 06:59 18:59 Intake Total 200 Output Total 200 Balance 0 - Medications Medications: Current Medications Acetaminophen (Tylenol 325mg Tab) 650 mg PO Q4H PRN PRN Reason: Pain, Mild (1-3) Last Admin: 03/15/18 17:13 Dose: 650 mg Aspirin (Ecotrin) 81 mg PO DAILY [facility] Last Admin: 03/15/18 10:24 Dose: 81 mg Clopidogrel Bisulfate (Plavix) 75 mg PO DAILY [facility] Last Admin: 03/15/18 10:26 Dose: 75 mg Furosemide (Lasix) 40 mg PO TID [facility] Last Admin: 03/15/18 18:29 Dose: 40 mg Ceftaroline Fosamil 400 mg/ (Sodium Chloride) 100 mls @ 100 mls/hr IVPB Q12 [facility] PRN Reason: Protocol Stop: 03/21/18 22:01 Last Admin: 03/15/18 22:02 Dose: 100 mls/hr Levothyroxine Sodium (Synthroid) 50 mcg PO DAILY [facility] Last Admin: 03/15/18 10:27 Dose: 50 mcg Magnesium Hydroxide (Milk Of Magnesia) 30 ml PO DAILY PRN PRN Reason: Constipation Last Admin: 03/15/18 18:24 Dose: 30 ml Morphine Sulfate (Morphine) 5 mg IVP Q6H PRN PRN Reason: Pain, severe (8-10) Last Admin: 03/16/18 07:05 Dose: 5 mg Ondansetron HCl (Zofran Inj) 4 mg IVP ONCE PRN PRN Reason: Nausea/Vomiting Oxycodone/Acetaminophen (Percocet 5/325 Mg Tab) 1 tab PO Q4H PRN PRN Reason: Pain, moderate (4-7) Stop: 03/17/18 18:48 Last Admin: 03/15/18 18:29 Dose: 1 tab Potassium Chloride (Klor-Con 10) 10 meq PO BRK [facility] Last Admin: 03/15/18 10:25 Dose: 10 meq Tamsulosin HCl (Flomax) 0.4 mg PO DAILY [facility] Last Admin: 03/15/18 10:24 Dose: 0.4 mg Tramadol HCl (Ultram) 50 mg PO QID [facility] Last Admin: 03/15/18 17:14 Dose: 50 mg - Labs Labs: 03/15/18 08:10 03/15/18 08:10 PT 15.2 SECONDS (9.4-12.5) H 03/15/18 08:10 INR 1.31 (0.93-1.08) H 03/15/18 08:10 - Constitutional Appears: Chronically Ill - Head Exam Head Exam: NORMAL INSPECTION - Neck Exam Neck Exam: absent: Meningismus - Respiratory Exam Respiratory Exam: Decreased Breath Sounds - Cardiovascular Exam Cardiovascular Exam: +S1, +S2 - GI/Abdominal Exam GI & Abdominal Exam: Soft. absent: Tenderness - Extremities Exam Additional comments: right foot and leg with dressings in place Assessment and Plan - Assessment and Plan (Free Text) Plan: Assessment consider right leg skin and skin structure infection associated with severe peripheral vascular disease S/P angioplasty and stenting POD #2, growing gram negative bacilli peptic ulcer disease history of hyperthyroidism gout severe peripheral arterial disease S/P left sided stenting Plan continue Teflaro day 2 pending identification and sensitivities of the gram negative bacilli in the wound cx will continue to monitor clinically
--- NOTE | 2018-03-16 16:05 | CT ---
PROCEDURE: CT Abdomen and Pelvis with Oral contrast. HISTORY: edema R/O pelvic mass, venous or lymph obstruction COMPARISON: None. TECHNIQUE: Contiguous axial images of the abdomen and pelvis. Oral contrast was administered. No IV contrast given. Coronal and Sagittal reformats generated. Radiation dose: Total exam DLP = This CT exam was performed using one or more of the following dose reduction techniques: Automated exposure control, adjustment of the mA and/or kV according to patient size, and/or use of iterative reconstruction technique. FINDINGS: LOWER THORAX: Minor interstitial changes are seen at the lung bases. No evidence of infiltrate or effusion. Visualized distal esophagus is unremarkable. Stomach is decompressed limiting evaluation. Duodenum is unremarkable. LIVER: Noncontrast images of the liver real evidence of probable small low-density cyst in the right lobe of the liver. No appreciable liver mass is seen elsewhere. No intrahepatic ductal dilatation is noted. GALLBLADDER AND BILE DUCTS: There is evidence of 2 calcified gallstones in the gallbladder. The gallbladder is mildly distended with some probable additional gallbladder sludge. No definite gallbladder wall thickening or pericholecystic fluid is noted. Common bile duct is normal in size. PANCREAS: Unremarkable. No mass. No ductal dilatation. SPLEEN: Unremarkable. No splenomegaly. ADRENALS: Unremarkable. KIDNEYS AND URETERS: Kidneys show no evidence of hydronephrosis. No perinephric changes are seen. Ureters are not dilated. BLADDER: Bladder is distended. No definite bladder wall thickening is seen. Prostate gland is top-normal in size. REPRODUCTIVE: Unremarkable. APPENDIX: Appendix is mildly enlarged but shows no evidence of periappendiceal inflammatory change. BOWEL: No bowel obstruction is seen. No pericolonic inflammatory changes are noted. PERITONEUM: Unremarkable. No fluid collection. No free air. LYMPH NODES: Unremarkable. No enlarged lymph nodes. VASCULATURE: There is moderate atherosclerotic change of the aorta without aneurysmal dilatation. There is additional calcifications seen in the celiac and splenic arteries and proximal renal artery is as well as the iliac bifurcation. BONES: No fracture or destructive lesion. OTHER FINDINGS: No enlarged inguinal hernias are seen. A few small scattered inguinal lymph nodes however are noted, nonspecific. IMPRESSION: No appreciable intra abdominal or pelvic mass. Nonspecific distended urinary bladder without significant prostate gland enlargement. No hydronephrosis. Two gallstones. Gallbladder is mildly distended with sludge although no wall thickening is seen.
--- NOTE | 2018-03-17 01:02 | PN ---
DATE: 03/16/2018 DAILY PROGRESS NOTE SUBJECTIVE: The patient is a 78-year-old male with a history of gout, congestive heart failure, benign prostatic hypertrophy, coronary artery disease and hypothyroidism, who was admitted with cellulitis and +2 soft edema of the lower extremities. During the hospital stay, his right lower extremity was revascularized by Dr. Yasir Reed. His chest x-ray showed no acute disease. EKG showed regular sinus rhythm with PACs. He is currently being treated with ceftaroline 400 mg every 12 hours intravenously. He is also receiving aspirin, Flomax, K-Dur, Lasix 40 three times a day, morphine sulfate as needed for pain, Plavix and Synthroid. When seen today, the patient is awake, alert and oriented. He complained of a burning sensation in both legs; however, relieved with the morphine sulfate. On physical exam, his lungs are clear anteriorly. Heart is regular. Abdomen is soft. The edema in the legs is decreased. Erythema persists in the right lower extremity. Cultures of the right lower extremity wound revealed gram negative rods. Further identification and sensitivities are pending. His vital signs are stable. So we are continuing with the current regimen and the patient is to be reevaluated in the morning. We will continue to follow him closely. Goyo Porter MD MTDD
[2018-03-17] MEDS: Oxycodone/Acetaminophen 5/325 mg Tab PO PRN ×2 (04:51→10:44)
[2018-03-17] MEDS: Potassium Chloride 10 mEq ER Tab PO SCH (08:25)
[2018-03-17] MEDS: Cefepime IV 2 gm in NS 2 GM/100 ML BAG IVPB SCH ×2 (10:29→22:08)
[2018-03-17] MEDS: Levothyroxine 50 MCG TAB PO SCH (10:34)
[2018-03-17] MEDS: Magnesium Hydroxide Susp 30 ml UD PO PRN (14:54)
--- NOTE | 2018-03-17 15:02 | CP.PCM.PN ---
Subjective - Date & Time of Evaluation Date of Evaluation: 03/17/18 Time of Evaluation: 14:05 - Subjective Subjective: Comfortable in bed, no fevers, not in distress. Still with burning pain in the right foot but a little better. Objective - Vital Signs/Intake and Output Vital Signs (last 24 hours): Temp Pulse Resp BP Pulse Ox 98.4 F 86 20 134/59 L 99 03/16/18 22:00 03/16/18 22:00 03/16/18 22:00 03/16/18 22:00 03/16/18 22:00 Intake and Output: 03/17/18 03/17/18 06:59 18:59 Intake Total 400 120 Output Total 800 Balance 400 -680 - Medications Medications: Current Medications Acetaminophen (Tylenol 325mg Tab) 650 mg PO Q4H PRN PRN Reason: Pain, Mild (1-3) Last Admin: 03/15/18 17:13 Dose: 650 mg Aspirin (Ecotrin) 81 mg PO DAILY [facility] Last Admin: 03/16/18 10:31 Dose: 81 mg Clopidogrel Bisulfate (Plavix) 75 mg PO DAILY [facility] Last Admin: 03/16/18 10:30 Dose: 75 mg Furosemide (Lasix) 40 mg PO TID [facility] Last Admin: 03/16/18 19:03 Dose: Not Given Cefepime HCl (Maxipime 2gm) 2 gm in 100 mls @ 100 mls/hr IVPB Q12 [facility] PRN Reason: Protocol Stop: 03/22/18 08:31 Levothyroxine Sodium (Synthroid) 50 mcg PO DAILY [facility] Last Admin: 03/16/18 10:31 Dose: 50 mcg Magnesium Hydroxide (Milk Of Magnesia) 30 ml PO DAILY PRN PRN Reason: Constipation Last Admin: 03/15/18 18:24 Dose: 30 ml Morphine Sulfate (Morphine) 5 mg IVP Q6H PRN PRN Reason: Pain, severe (8-10) Last Admin: 03/16/18 13:36 Dose: 5 mg Ondansetron HCl (Zofran Inj) 4 mg IVP ONCE PRN PRN Reason: Nausea/Vomiting Oxycodone/Acetaminophen (Percocet 5/325 Mg Tab) 1 tab PO Q4H PRN PRN Reason: Pain, moderate (4-7) Stop: 03/17/18 18:48 Last Admin: 03/17/18 04:51 Dose: 1 tab Potassium Chloride (Klor-Con 10) 10 meq PO BRK [facility] Last Admin: 03/17/18 08:25 Dose: 10 meq Tamsulosin HCl (Flomax) 0.4 mg PO DAILY [facility] Last Admin: 03/16/18 10:32 Dose: 0.4 mg Tramadol HCl (Ultram) 50 mg PO QID [facility] Last Admin: 03/16/18 22:59 Dose: Not Given - Labs Labs: 03/15/18 08:10 03/15/18 08:10 PT 15.2 SECONDS (9.4-12.5) H 03/15/18 08:10 INR 1.31 (0.93-1.08) H 03/15/18 08:10 - Constitutional Appears: Chronically Ill - Head Exam Head Exam: NORMAL INSPECTION - ENT Exam ENT Exam: Mucous Membranes Moist - Neck Exam Neck Exam: absent: Meningismus - Respiratory Exam Respiratory Exam: Decreased Breath Sounds - Cardiovascular Exam Cardiovascular Exam: +S1, +S2 - GI/Abdominal Exam GI & Abdominal Exam: Soft. absent: Tenderness - Extremities Exam Additional comments: left foot with dressings in place Assessment and Plan - Assessment and Plan (Free Text) Plan: Assessment consider right leg skin and skin structure infection associated with severe peripheral vascular disease S/P angioplasty and stenting POD #3, growing Acinetobacter peptic ulcer disease history of hyperthyroidism gout severe peripheral arterial disease S/P left sided stenting Plan changed antibiotics to Cefepime and will continue to monitor clinically
--- NOTE | 2018-03-18 01:26 | PN ---
DATE: 03/17/2018 DAILY PROGRESS NOTE SUBJECTIVE: The patient is a 78-year-old male with the history of gout, congestive heart failure, benign prostatic hypertrophy, coronary artery disease and hypothyroidism who is admitted to the [facility] on 03/14/2018 with cellulitis of the right lower extremity and edema of both lower extremities. The right lower extremity was revascularized by Dr. Yasir Reed during the hospital stay. Chest x-ray showed no acute disease. EKG showed regular sinus rhythm with PACs. He is being followed by Dr. Dixon, the Infectious Disease specialist and is treated with ceftaroline 400 mg every 12 hours. We are also continuing with his Synthroid and Lasix 40 mg three times a day for diuresis. When seen today, the patient is awake, alert and oriented. His son is at bedside. He still complains of some burning sensation in the legs. Cultures of the leg wound grew Acinetobacter, which is sensitive to Cipro, meropenem and Zosyn. So we are continuing with current regimen and we will continue to follow the patient closely, will be getting physical therapy for ambulation. Goyo Porter MD
[2018-03-18] MEDS: Levothyroxine 50 MCG TAB PO SCH (09:42)
[2018-03-18] MEDS: Magnesium Hydroxide Susp 30 ml UD PO PRN (09:42)
[2018-03-18] MEDS: Potassium Chloride 10 mEq ER Tab PO SCH (09:43)
[2018-03-18] MEDS ORDERED: Morphine 5 MG/ML SYRINGE IVP PRN (10:39)
[2018-03-18] MEDS: Cefepime IV 2 gm in NS 2 GM/100 ML BAG IVPB SCH ×2 (11:14→22:07)
--- NOTE | 2018-03-18 12:53 | PN ---
DATE: 03/18/2018 DAILY PROGRESS NOTE The patient is a 78-year-old male with a history of gout, congestive heart failure, benign prostatic hypertrophy, coronary artery disease and hypothyroidism who was admitted to the [facility] on 03/14/2018 with cellulitis of the right lower extremity and edema of both lower extremities. He underwent revascularization of the right lower extremities with Dr. Yasir Reed. Chest x-ray showed no acute disease. EKG showed regular sinus rhythm with PACs. He is being followed by Dr. Dixon, the Infectious Disease specialist and is being treated with ceftaroline 400 mg every 12 hours for Acinetobacter, which grew from the leg wounds. When seen today, the patient is feeling well and he still complains of constipation, for which we will give him milk of magnesia, reevaluate his blood work in the morning. As per Infectious Disease specialist, his antibiotic has been changed to cefepime and we will continue to follow the patient closely. Goyo Porter MD
--- NOTE | 2018-03-18 19:22 | CP.PCM.PN ---
Subjective - Date & Time of Evaluation Date of Evaluation: 03/18/18 Time of Evaluation: 12:30 - Subjective Subjective: Still with pain in the left foot but less, no fevers. Objective - Vital Signs/Intake and Output Vital Signs (last 24 hours): Temp Pulse Resp BP Pulse Ox 98 F 101 H 20 130/70 98 03/18/18 08:24 03/18/18 08:24 03/18/18 08:24 03/18/18 08:24 03/18/18 08:24 Intake and Output: 03/18/18 03/18/18 06:59 18:59 Intake Total 100 Output Total 600 Balance -500 - Medications Medications: Current Medications Acetaminophen (Tylenol 325mg Tab) 650 mg PO Q4H PRN PRN Reason: Pain, Mild (1-3) Last Admin: 03/15/18 17:13 Dose: 650 mg Aspirin (Ecotrin) 81 mg PO DAILY [facility] Last Admin: 03/17/18 10:32 Dose: 81 mg Clopidogrel Bisulfate (Plavix) 75 mg PO DAILY [facility] Last Admin: 03/17/18 10:34 Dose: 75 mg Furosemide (Lasix) 40 mg PO TID [facility] Last Admin: 03/17/18 17:37 Dose: 40 mg Cefepime HCl (Maxipime 2gm) 2 gm in 100 mls @ 100 mls/hr IVPB Q12 [facility] PRN Reason: Protocol Stop: 03/22/18 08:31 Last Admin: 03/17/18 22:08 Dose: 100 mls/hr Levothyroxine Sodium (Synthroid) 50 mcg PO DAILY [facility] Last Admin: 03/17/18 10:34 Dose: 50 mcg Magnesium Hydroxide (Milk Of Magnesia) 30 ml PO DAILY PRN PRN Reason: Constipation Last Admin: 03/17/18 14:54 Dose: 30 ml Morphine Sulfate (Morphine) 5 mg IVP Q6H PRN PRN Reason: Pain, severe (8-10) Last Admin: 03/17/18 14:52 Dose: 5 mg Ondansetron HCl (Zofran Inj) 4 mg IVP ONCE PRN PRN Reason: Nausea/Vomiting Potassium Chloride (Klor-Con 10) 10 meq PO BRK [facility] Last Admin: 03/17/18 08:25 Dose: 10 meq Tamsulosin HCl (Flomax) 0.4 mg PO DAILY [facility] Last Admin: 03/17/18 10:34 Dose: 0.4 mg Tramadol HCl (Ultram) 50 mg PO QID [facility] Last Admin: 03/17/18 22:00 Dose: Not Given - Labs Labs: 03/15/18 08:10 03/15/18 08:10 PT 15.2 SECONDS (9.4-12.5) H 03/15/18 08:10 INR 1.31 (0.93-1.08) H 03/15/18 08:10 - Constitutional Appears: Chronically Ill - Head Exam Head Exam: NORMAL INSPECTION - ENT Exam ENT Exam: Mucous Membranes Moist - Neck Exam Neck Exam: absent: Meningismus - Respiratory Exam Respiratory Exam: Decreased Breath Sounds - Cardiovascular Exam Cardiovascular Exam: +S1, +S2 - GI/Abdominal Exam GI & Abdominal Exam: Soft, Tenderness Assessment and Plan - Assessment and Plan (Free Text) Plan: Assessment consider right leg skin and skin structure infection associated with severe peripheral vascular disease S/P angioplasty and stenting POD #4, growing Acinetobacter peptic ulcer disease history of hyperthyroidism gout severe peripheral arterial disease S/P left sided stenting Plan continue Cefepime day 2 and will continue to monitor clinically
--- NOTE | 2018-03-18 19:59 | CP.PCM.CON ---
<Alfredito Pires - Last Filed: 03/18/18 19:52> History of Present Illness - History of Present Illness History of Present Illness: Podiatry Consult Note: Dr. Mc/Dr. Reyes 78 year old male with PMHx of peptic ulcer disease, hx of hyperthyroidism, gout , severe PAD was seen and evaluated at bedside complaining of severe pain on the right leg. Patient reports that he has been suffering from this pain for about four and half months, about the time since he had the ulcers. Patient reports that the pain is worst with the movement. Patient reports that he has been seeing a vascular doctor for this who has been providing care. Patient reports that he underwent angioplasty and stenting of occluded lower extremity blood vessels. Reports that his left heel causes him pain as well but not as much as the right leg. Patient denies of any other pedal complains at this time. Patient denies of having any recent F/N/V/C/SOB/CP/headache. PMHx: peptic ulcer disease, hx of hyperthyroidism, gout, severe PAD PSHx: Rhinoplasty, Thyroid surgery Allergies: N.K.D.A SHx: Smoking for "many many years"; denies EtOH or illicit drug usage Review of Systems - Constitutional Constitutional: As Per HPI Past Patient History - Infectious Disease Hx of Infectious Diseases: None - Past Social History Smoking Status: Never Smoked - CARDIAC Hx Cardiac Disorders: Yes Hx Congestive Heart Failure: Yes Hx Peripheral Vascular Disease: Yes - PULMONARY Hx Respiratory Disorders: No - NEUROLOGICAL Hx Neurological Disorder: No - HEENT Hx HEENT Problems: No - RENAL Hx Chronic Kidney Disease: No - ENDOCRINE/METABOLIC Hx Endocrine Disorders: Yes Hx Hyperthyroidism: Yes (s/p thyroid ablation) Hx Hypothyroidism: Yes - HEMATOLOGICAL/ONCOLOGICAL Hx Blood Disorders: No - INTEGUMENTARY Hx Dermatological Problems: Yes Other/Comment: cellulitis to right lower extremity - MUSCULOSKELETAL/RHEUMATOLOGICAL Hx Musculoskeletal Disorders: Yes Hx Back Pain: Yes Hx Falls: No Other/Comment: unsteady gait - GASTROINTESTINAL Hx Gastrointestinal Disorders: No - GENITOURINARY/GYNECOLOGICAL Hx Genitourinary Disorders: Yes Other/Comment: BPH - PSYCHIATRIC Hx Psychophysiologic Disorder: No - SURGICAL HISTORY Hx Surgeries: Yes Other/Comment: R femoral stent. Thyroid Ablation Meds Allergies/Adverse Reactions: Allergies Allergy/AdvReac Type Severity Reaction Status Date / Time food sea Allergy RASH Uncoded 03/15/18 19:16 - Medications Medications: Current Medications Acetaminophen (Tylenol 325mg Tab) 650 mg PO Q4H PRN PRN Reason: Pain, Mild (1-3) Last Admin: 03/15/18 17:13 Dose: 650 mg Aspirin (Ecotrin) 81 mg PO DAILY [facility] Last Admin: 03/18/18 09:43 Dose: 81 mg Clopidogrel Bisulfate (Plavix) 75 mg PO DAILY [facility] Last Admin: 03/18/18 09:43 Dose: 75 mg Furosemide (Lasix) 40 mg PO TID [facility] Last Admin: 03/18/18 17:10 Dose: 40 mg Cefepime HCl (Maxipime 2gm) 2 gm in 100 mls @ 100 mls/hr IVPB Q12 [facility] PRN Reason: Protocol Stop: 03/22/18 08:31 Last Admin: 03/18/18 11:14 Dose: 100 mls/hr Levothyroxine Sodium (Synthroid) 50 mcg PO DAILY [facility] Last Admin: 03/18/18 09:42 Dose: 50 mcg Magnesium Hydroxide (Milk Of Magnesia) 30 ml PO DAILY PRN PRN Reason: Constipation Last Admin: 03/18/18 09:42 Dose: 30 ml Morphine Sulfate (Morphine) 5 mg IVP Q6H PRN PRN Reason: Pain, severe (8-10) Last Admin: 03/18/18 17:40 Dose: 5 mg Ondansetron HCl (Zofran Inj) 4 mg IVP ONCE PRN PRN Reason: Nausea/Vomiting Potassium Chloride (Klor-Con 10) 10 meq PO BRK [facility] Last Admin: 03/18/18 09:43 Dose: 10 meq Tamsulosin HCl (Flomax) 0.4 mg PO DAILY [facility] Last Admin: 03/18/18 09:43 Dose: 0.4 mg Tramadol HCl (Ultram) 50 mg PO QID [facility] Last Admin: 03/18/18 17:11 Dose: 50 mg Physical Exam - Constitutional Appears: Well, Non-toxic, No Acute Distress - Extremities Exam Additional comments: Bilateral LE focused exam VASC: DP/PT pulses are non-palpable b/l, Cap refill time: < 3 sec to all digits , Temp gradient: warm to warm from proximal to distal, non-pitting edema noted diffusely on the right leg compared to the left leg DERM: Superficial epidermal layer lysis circumferentially with active serous fluid drainage from distal right leg, wound measuring approx 2.5 cm x 2.5 cm x 0.2 cm noted on the romeo-medial ankle, wound base is mainly fibrotic, no probe to bone, no tunneling, no undermining, no malodor, distal right leg shows erythema which extends from mid calf level distally to midfoot level, nails are dystrophic and discolored, no interdigital maceration, Left plantar heel appears to have deep tissue injury with mild skin hyperpigmentation NEURO: Protective sensation mildly diminished ORTHO: Sever tenderness on palpation of the distal right leg, MMT: 5/5 in all four direction at the AJ - Neurological Exam Neurological exam: Alert, Oriented x3 - Psychiatric Exam Psychiatric exam: Normal Affect, Normal Mood Results - Vital Signs Recent Vital Signs: Last Vital Signs Temp 98.4 F 03/18/18 15:00 Pulse 79 03/18/18 15:00 Resp 18 03/18/18 15:00 BP 110/60 03/18/18 17:10 Pulse Ox 96 03/18/18 15:00 - Labs Result Diagrams: 03/15/18 08:10 03/15/18 08:10 Assessment & Plan - Assessment and Plan (Free Text) Assessment: 78 year old male with PMHx of peptic ulcer disease, hx of hyperthyroidism, gout , severe PAD was evaluated for 1). severe pain on the right leg secondary to PAD and venous stasis ulcer 2). Cellulitis 3). Deep tissue injury of the left heel Plan: Patient seen and evaluated with attending Dr. Mc Labs, vitals and charts reviewed - afebrile; WBC @ 10.1 Venous duplex of right: no evidence of DVT Vascular studies - JONAH/PVR: 0.30; Aortoilliac disease, Bilateral SFA disease with poor waveform in bilateral foot Vascular consulted - f/u rec - Successful Angioplasty with multiple stents bilaterally Wound cultures right leg: Acinetobacter Baumanni Wound cleaned with sterile saline and dressing applied using maxorb, ABD, DSD on the right leg and optifoam on the left heel Continue IV abx as per ID - cefepime Multipodus boots ordered - to be worn in bed at all times Thank you for the interesting podiatry consult and allowing to take part in patient care Podiatry to follow patient while in-house - Date & Time Date: 03/18/18 Time: 18:00 <Gogo Mc - Last Filed: 03/24/18 17:41> Meds - Medications Medications: Current Medications Acetaminophen (Tylenol 325mg Tab) 650 mg PO Q4H PRN PRN Reason: Pain, Mild (1-3) Last Admin: 03/15/18 17:13 Dose: 650 mg Aspirin (Ecotrin) 81 mg PO DAILY [facility] Last Admin: 03/24/18 10:15 Dose: 81 mg Betamethasone/Clotrimazole (Lotrisone) 0 ml TOP BID [facility] Last Admin: 03/24/18 10:00 Dose: 1 applic Clopidogrel Bisulfate (Plavix) 75 mg PO DAILY [facility] Last Admin: 03/24/18 10:15 Dose: 75 mg Collagenase (Santyl) 0 gm TOP DAILY [facility] Last Admin: 03/24/18 10:16 Dose: 1 applic Furosemide (Lasix) 40 mg PO TID [facility] Last Admin: 03/24/18 17:32 Dose: 40 mg Cefepime HCl (Maxipime 1gm) 1 gm in 100 mls @ 100 mls/hr IVPB Q12 [facility] PRN Reason: Protocol Stop: 03/30/18 10:01 Last Admin: 03/24/18 13:50 Dose: 100 mls/hr Levothyroxine Sodium (Synthroid) 75 mcg PO 0600 [facility] Last Admin: 03/24/18 06:07 Dose: 75 mcg Magnesium Hydroxide (Milk Of Magnesia) 30 ml PO DAILY PRN PRN Reason: Constipation Last Admin: 03/20/18 09:30 Dose: 30 ml Morphine Sulfate (Morphine) 5 mg IVP Q6H PRN PRN Reason: Pain, severe (8-10) Last Admin: 03/22/18 16:35 Dose: 5 mg Mupirocin (Bactroban Ointment) 0 gm TOP BID [facility] Last Admin: 03/24/18 10:15 Dose: 1 applic Ondansetron HCl (Zofran Inj) 4 mg IVP ONCE PRN PRN Reason: Nausea/Vomiting Oxycodone/Acetaminophen (Percocet 10/325 Mg Tab) 1 tab PO Q6H PRN PRN Reason: Pain, moderate (4-7) Last Admin: 03/24/18 15:56 Dose: 1 tab Potassium Chloride (Klor-Con 10) 10 meq PO BRK [facility] Last Admin: 03/24/18 10:15 Dose: 10 meq Tamsulosin HCl (Flomax) 0.4 mg PO DAILY [facility] Last Admin: 03/24/18 10:16 Dose: 0.4 mg Results - Vital Signs Recent Vital Signs: Last Vital Signs Temp 98.1 F 03/24/18 14:00 Pulse 71 03/24/18 14:00 Resp 20 03/24/18 14:00 BP 122/65 03/24/18 17:32 Pulse Ox 100 03/24/18 14:00 - Labs Result Diagrams: 03/23/18 06:30 03/23/18 06:30 Labs: Laboratory Results - last 24 hr 03/23/18 03/24/18 06:30 07:45 Hemoglobin A1c 5.5 TSH 3rd Generation 18.70 H
[2018-03-19 07:35] LABS: BASO # 0.02 K/mm3 (0.0-2.0); BASO % 0.3 % (0.0-3.0); EOS # 0.2 (0.0-0.7); EOS % 3.6 % (1.5-5.0); GRAN # 4.35 (1.4-6.5); GRAN % 64.3 % (50.0-68.0); HEMOGLOBIN 10.3 g/dL (14.0-18.0); LYMPH # 1.4 (1.2-3.4); MEAN CELL VOLUME 86.3 fl (80.0-105.0); MEAN CORPUSCULAR HEMOGLOBIN 28.3 pg (25.0-35.0); MEAN CORPUSCULAR HGB CONC 32.8 g/dl (31.0-37.0); MEAN PLATELET VOLUME 9.8 fl (7.0-11.0); MONO # 0.7 (0.1-0.6); MONO % 10.8 % (1.0-6.0); RBC 3.64 10^6/uL (3.5-6.1); RED CELL DISTRIBUTION WIDTH 14.7 % (11.5-14.5); WHITE BLOOD COUNT 6.8 10^3/ul (4.5-11.0)
[2018-03-19 07:48] LABS: ALB/GLOB RATIO 1.1 (1.1-1.8); ALBUMIN 3.4 g/dL (3.0-4.8); ALT/SGPT 70 U/L (7-56); AST/SGOT 76 U/L (17-59); BLOOD UREA NITROGEN 13 mg/dL (7-21); CALCIUM 8.5 mg/dL (8.4-10.5); GFR AFRICAN-AMERICAN > 60; GFR NON-AFRICAN AMERICAN 53
[2018-03-19] MEDS: Potassium Chloride 10 mEq ER Tab PO SCH (08:20)
[2018-03-19] MEDS: Morphine 5 MG/ML SYRINGE IVP PRN ×2 (09:44→20:43)
[2018-03-19] MEDS: Cefepime IV 2 gm in NS 2 GM/100 ML BAG IVPB SCH ×2 (09:44→22:31)
[2018-03-19] MEDS: Levothyroxine 50 MCG TAB PO SCH (09:46)
--- NOTE | 2018-03-19 16:19 | CP.PCM.PN ---
<JeremyLavonne - Last Filed: 03/19/18 16:16> Subjective - Date & Time of Evaluation Date of Evaluation: 03/19/18 Time of Evaluation: 16:16 - Subjective Subjective: Podiatry Consult Note: Dr. Mc/Dr. Reyes 78 year old male seen and evaluated at bedside with attending Dr. Reyes with right ankle ulceration and left heel injury. Pt states the right ankle wound is very sensitive to touch, and is the best when it is elevated at the knee so it does not touch anything. Pt admits to no pain in the left heel but (+) numbness. Pt has no new complaints today. Patient denies F/N/V/C/SOB/CP/ headache. Objective - Vital Signs/Intake and Output Vital Signs (last 24 hours): Temp Pulse Resp BP Pulse Ox 97.9 F 76 22 124/59 L 96 03/19/18 13:57 03/19/18 13:57 03/19/18 13:57 03/19/18 14:51 03/19/18 13:57 Intake and Output: 03/19/18 03/19/18 06:59 18:59 Intake Total 820 420 Output Total 200 Balance 620 420 - Medications Medications: Current Medications Acetaminophen (Tylenol 325mg Tab) 650 mg PO Q4H PRN PRN Reason: Pain, Mild (1-3) Last Admin: 03/15/18 17:13 Dose: 650 mg Aspirin (Ecotrin) 81 mg PO DAILY [facility] Last Admin: 03/19/18 09:46 Dose: 81 mg Clopidogrel Bisulfate (Plavix) 75 mg PO DAILY [facility] Last Admin: 03/19/18 09:46 Dose: 75 mg Furosemide (Lasix) 40 mg PO TID [facility] Last Admin: 03/19/18 14:51 Dose: 40 mg Cefepime HCl (Maxipime 2gm) 2 gm in 100 mls @ 100 mls/hr IVPB Q12 [facility] PRN Reason: Protocol Stop: 03/22/18 08:31 Last Admin: 03/19/18 09:44 Dose: 100 mls/hr Levothyroxine Sodium (Synthroid) 50 mcg PO DAILY [facility] Last Admin: 03/19/18 09:46 Dose: 50 mcg Magnesium Hydroxide (Milk Of Magnesia) 30 ml PO DAILY PRN PRN Reason: Constipation Last Admin: 03/18/18 09:42 Dose: 30 ml Morphine Sulfate (Morphine) 5 mg IVP Q6H PRN PRN Reason: Pain, severe (8-10) Last Admin: 03/19/18 09:44 Dose: 5 mg Ondansetron HCl (Zofran Inj) 4 mg IVP ONCE PRN PRN Reason: Nausea/Vomiting Potassium Chloride (Klor-Con 10) 10 meq PO BRK [facility] Last Admin: 03/19/18 08:20 Dose: 10 meq Tamsulosin HCl (Flomax) 0.4 mg PO DAILY [facility] Last Admin: 03/19/18 09:46 Dose: 0.4 mg Tramadol HCl (Ultram) 50 mg PO QID [facility] Last Admin: 03/19/18 14:57 Dose: 50 mg - Labs Labs: 03/19/18 07:00 03/19/18 07:00 PT 15.2 SECONDS (9.4-12.5) H 03/15/18 08:10 INR 1.31 (0.93-1.08) H 03/15/18 08:10 - Constitutional Appears: Well, Non-toxic, No Acute Distress - Extremities Exam Additional comments: Bilateral LE focused exam VASC: DP/PT pulses are non-palpable B/L. CFT < 3 sec to all digits. Temp gradient warm to warm from proximal to distal. Non-pitting edema noted diffusely , R>L. DERM: Superficial epidermal layer lysis circumferentially with active serous fluid drainage from distal right anterior leg. Wound measuring approx 2.5 cm x 2.5 cm x 0.2 cm noted on the romeo-medial ankle. Wound base is mainly fibrotic , no probe to bone, no tunneling, no undermining, no malodor, distal right leg shows erythema which extends from mid calf level distally to midfoot level, nails are dystrophic and discolored, no interdigital maceration. Right plantar lateral heel exhibits superficial blister with mild underlying hematoma formation - no breaks in skin or soft tissue noted at site. Left plantar heel appears to have deep tissue injury with mild skin hyperpigmentation NEURO: Protective sensation mildly diminished ORTHO: Severe tenderness on palpation of the distal right anterior leg. MT: 5/5 in all four direction at the ankle joint - Neurological Exam Neurological Exam: Alert, Awake, Oriented x3 - Psychiatric Exam Psychiatric exam: Normal Affect, Normal Mood Assessment and Plan - Assessment and Plan (Free Text) Assessment: 78 year old male with 1)severe pain on the right leg secondary to PAD and venous stasis ulcer, 2)cellulitis, 3)deep tissue injury of the left heel Plan: Patient seen and evaluated with attending Dr. Reyes Labs, vitals and charts reviewed - afebrile; WBC @ 6.8 Venous duplex of right: no evidence of DVT Vascular studies - JONAH/PVR: 0.30; Aortoiliac disease, Bilateral SFA disease with poor waveform in bilateral foot Vascular consulted - f/u recommendations - Successful angioplasty performed with multiple stents B/L Wound cultures right leg (+) growth of Acinetobacter Baumanni Wound cleaned with sterile saline and dressing applied using maxorb, ABD, DSD on the right leg, bactroban and optifoam to right heel and optifoam on the left heel Continue IV abx as per ID - Cefipime Continue Multipodus boot at all times in bed <Liang Reyes - Last Filed: 03/22/18 11:20> Objective - Vital Signs/Intake and Output Vital Signs (last 24 hours): Temp Pulse Resp BP Pulse Ox 97.4 F L 71 20 136/74 97 03/22/18 07:00 03/22/18 07:00 03/22/18 07:00 03/22/18 10:49 03/22/18 07:00 Intake and Output: 03/22/18 03/22/18 06:59 18:59 Intake Total 720 Output Total 400 Balance 320 - Medications Medications: Current Medications Acetaminophen (Tylenol 325mg Tab) 650 mg PO Q4H PRN PRN Reason: Pain, Mild (1-3) Last Admin: 03/15/18 17:13 Dose: 650 mg Aspirin (Ecotrin) 81 mg PO DAILY [facility] Last Admin: 03/22/18 10:49 Dose: 81 mg Betamethasone/Clotrimazole (Lotrisone) 0 ml TOP BID [facility] Last Admin: 03/22/18 10:45 Dose: 1 applic Clopidogrel Bisulfate (Plavix) 75 mg PO DAILY [facility] Last Admin: 03/22/18 10:50 Dose: 75 mg Collagenase (Santyl) 0 gm TOP DAILY [facility] Last Admin: 03/22/18 10:45 Dose: 1 applic Furosemide (Lasix) 40 mg PO TID [facility] Last Admin: 03/22/18 10:49 Dose: 40 mg Cefepime HCl (Maxipime 1gm) 1 gm in 100 mls @ 100 mls/hr IVPB Q12 [facility] PRN Reason: Protocol Stop: 03/30/18 10:01 Last Admin: 03/22/18 10:44 Dose: 100 mls/hr Levothyroxine Sodium (Synthroid) 50 mcg PO DAILY [facility] Last Admin: 03/22/18 10:50 Dose: 50 mcg Magnesium Hydroxide (Milk Of Magnesia) 30 ml PO DAILY PRN PRN Reason: Constipation Last Admin: 03/20/18 09:30 Dose: 30 ml Mupirocin (Bactroban Ointment) 0 gm TOP BID [facility] Last Admin: 03/22/18 10:45 Dose: 1 applic Ondansetron HCl (Zofran Inj) 4 mg IVP ONCE PRN PRN Reason: Nausea/Vomiting Oxycodone/Acetaminophen (Percocet 10/325 Mg Tab) 1 tab PO Q6H PRN PRN Reason: Pain, moderate (4-7) Last Admin: 03/22/18 10:48 Dose: 1 tab Potassium Chloride (Klor-Con 10) 10 meq PO BRK [facility] Last Admin: 03/22/18 07:57 Dose: 10 meq Tamsulosin HCl (Flomax) 0.4 mg PO DAILY [facility] Last Admin: 03/22/18 10:49 Dose: 0.4 mg - Labs Labs: 03/21/18 18:53 03/21/18 18:53 PT 15.2 SECONDS (9.4-12.5) H 03/15/18 08:10 INR 1.31 (0.93-1.08) H 03/15/18 08:10 Attending/Attestation - Attestation I have personally seen and examined this patient.: Yes I have fully participated in the care of the patient.: Yes I have reviewed all pertinent clinical information, including history, physical exam and plan: Yes
--- NOTE | 2018-03-19 16:31 | CP.PCM.PN ---
Subjective - Date & Time of Evaluation Date of Evaluation: 03/19/18 Time of Evaluation: 12:25 - Subjective Subjective: Patient still having pain in the right foot but a little less, no fevers, no diarrhea. Objective - Vital Signs/Intake and Output Vital Signs (last 24 hours): Temp Pulse Resp BP Pulse Ox 98.3 F 72 20 130/66 96 03/19/18 08:25 03/19/18 08:25 03/19/18 08:25 03/19/18 09:46 03/19/18 08:25 Intake and Output: 03/19/18 03/19/18 06:59 18:59 Intake Total 820 Output Total 200 Balance 620 - Medications Medications: Current Medications Acetaminophen (Tylenol 325mg Tab) 650 mg PO Q4H PRN PRN Reason: Pain, Mild (1-3) Last Admin: 03/15/18 17:13 Dose: 650 mg Aspirin (Ecotrin) 81 mg PO DAILY [facility] Last Admin: 03/19/18 09:46 Dose: 81 mg Clopidogrel Bisulfate (Plavix) 75 mg PO DAILY [facility] Last Admin: 03/19/18 09:46 Dose: 75 mg Furosemide (Lasix) 40 mg PO TID [facility] Last Admin: 03/19/18 09:46 Dose: 40 mg Cefepime HCl (Maxipime 2gm) 2 gm in 100 mls @ 100 mls/hr IVPB Q12 [facility] PRN Reason: Protocol Stop: 03/22/18 08:31 Last Admin: 03/19/18 09:44 Dose: 100 mls/hr Levothyroxine Sodium (Synthroid) 50 mcg PO DAILY [facility] Last Admin: 03/19/18 09:46 Dose: 50 mcg Magnesium Hydroxide (Milk Of Magnesia) 30 ml PO DAILY PRN PRN Reason: Constipation Last Admin: 03/18/18 09:42 Dose: 30 ml Morphine Sulfate (Morphine) 5 mg IVP Q6H PRN PRN Reason: Pain, severe (8-10) Last Admin: 03/19/18 09:44 Dose: 5 mg Ondansetron HCl (Zofran Inj) 4 mg IVP ONCE PRN PRN Reason: Nausea/Vomiting Potassium Chloride (Klor-Con 10) 10 meq PO BRK [facility] Last Admin: 03/19/18 08:20 Dose: 10 meq Tamsulosin HCl (Flomax) 0.4 mg PO DAILY [facility] Last Admin: 03/19/18 09:46 Dose: 0.4 mg Tramadol HCl (Ultram) 50 mg PO QID [facility] Last Admin: 03/18/18 17:11 Dose: 50 mg - Labs Labs: 03/19/18 07:00 03/19/18 07:00 PT 15.2 SECONDS (9.4-12.5) H 03/15/18 08:10 INR 1.31 (0.93-1.08) H 03/15/18 08:10 - Constitutional Appears: Chronically Ill - Head Exam Head Exam: NORMAL INSPECTION - ENT Exam ENT Exam: Mucous Membranes Moist - Neck Exam Neck Exam: absent: Meningismus - Respiratory Exam Respiratory Exam: Decreased Breath Sounds - Cardiovascular Exam Cardiovascular Exam: +S1, +S2 - GI/Abdominal Exam GI & Abdominal Exam: Soft. absent: Tenderness - Extremities Exam Additional comments: right foot with dressings in place Assessment and Plan - Assessment and Plan (Free Text) Plan: Assessment consider right leg skin and skin structure infection associated with severe peripheral vascular disease S/P angioplasty and stenting POD #5, growing Acinetobacter peptic ulcer disease history of hyperthyroidism gout severe peripheral arterial disease S/P left sided stenting Plan continue Cefepime day 3 and will continue to monitor clinically
--- NOTE | 2018-03-19 22:34 | PN ---
DATE: 03/19/2018 SUBJECTIVE: Patient was seen this Sunday afternoon, after the noon hour; in room 571, bed 2. He is resting in bed, comfortable, and in no acute distress. The severe leg pain has improved dramatically with revascularization by Dr. Yasir Reed shortly after admission on last week and continued antibiotics. The erythema has decreased. Unfortunately, a heel blister has formed on the left leg. Patient is in a large cushioned boot for that leg. IMPRESSION: 1. Cellulitis of the lower extremities with peripheral vascular disease. 2. Peripheral vascular disease. 3. Hyperthyroidism. PLAN: Continuing the antibiotics. We will discuss with Interventional Radiology and talked to the patient further about discharge plans. As to right now, it would be his preference to go to either our TCU or home, but will need to discuss this further as the time comes and he improves clinically. Cezar Porter MD
[2018-03-20] MEDS: Morphine 5 MG/ML SYRINGE IVP PRN ×2 (05:42→11:13)
[2018-03-20] MEDS: Cefepime IV 2 gm in NS 2 GM/100 ML BAG IVPB SCH ×2 (09:28→22:09)
[2018-03-20] MEDS: Potassium Chloride 10 mEq ER Tab PO SCH (09:29)
[2018-03-20] MEDS: Levothyroxine 50 MCG TAB PO SCH (09:29)
[2018-03-20] MEDS: Magnesium Hydroxide Susp 30 ml UD PO PRN (09:30)
[2018-03-20] MEDS ORDERED: Magnesium Citrate Oral SOL (300 ml) PO ONE (12:26)
[2018-03-20] MEDS: Oxycodone/Acetaminophen 10/325 mg Tab PO PRN ×2 (14:28→22:02)
--- NOTE | 2018-03-20 15:59 | CP.PCM.PN ---
Subjective - Date & Time of Evaluation Date of Evaluation: 03/20/18 Time of Evaluation: 12:45 - Subjective Subjective: No fevers, not in distress, still with pain on the right foot but a little less. Objective - Vital Signs/Intake and Output Vital Signs (last 24 hours): Temp Pulse Resp BP Pulse Ox 98.2 F 67 20 125/68 97 03/20/18 08:17 03/20/18 08:17 03/20/18 08:17 03/20/18 09:29 03/20/18 08:17 Intake and Output: 03/20/18 03/20/18 06:59 18:59 Intake Total 960 Output Total 450 Balance 510 - Medications Medications: Current Medications Acetaminophen (Tylenol 325mg Tab) 650 mg PO Q4H PRN PRN Reason: Pain, Mild (1-3) Last Admin: 03/15/18 17:13 Dose: 650 mg Aspirin (Ecotrin) 81 mg PO DAILY [facility] Last Admin: 03/20/18 09:29 Dose: 81 mg Clopidogrel Bisulfate (Plavix) 75 mg PO DAILY [facility] Last Admin: 03/20/18 09:29 Dose: 75 mg Furosemide (Lasix) 40 mg PO TID [facility] Last Admin: 03/20/18 09:29 Dose: 40 mg Cefepime HCl (Maxipime 2gm) 2 gm in 100 mls @ 100 mls/hr IVPB Q12 [facility] PRN Reason: Protocol Stop: 03/22/18 08:31 Last Admin: 03/20/18 09:28 Dose: 100 mls/hr Levothyroxine Sodium (Synthroid) 50 mcg PO DAILY [facility] Last Admin: 03/20/18 09:29 Dose: 50 mcg Magnesium Hydroxide (Milk Of Magnesia) 30 ml PO DAILY PRN PRN Reason: Constipation Last Admin: 03/20/18 09:30 Dose: 30 ml Morphine Sulfate (Morphine) 5 mg IVP Q6H PRN PRN Reason: Pain, severe (8-10) Last Admin: 03/20/18 11:13 Dose: 5 mg Ondansetron HCl (Zofran Inj) 4 mg IVP ONCE PRN PRN Reason: Nausea/Vomiting Potassium Chloride (Klor-Con 10) 10 meq PO BRK [facility] Last Admin: 03/20/18 09:29 Dose: 10 meq Tamsulosin HCl (Flomax) 0.4 mg PO DAILY [facility] Last Admin: 03/20/18 09:29 Dose: 0.4 mg Tramadol HCl (Ultram) 50 mg PO QID [facility] Last Admin: 03/20/18 09:30 Dose: 50 mg - Labs Labs: 03/19/18 07:00 03/19/18 07:00 PT 15.2 SECONDS (9.4-12.5) H 03/15/18 08:10 INR 1.31 (0.93-1.08) H 03/15/18 08:10 - Constitutional Appears: Chronically Ill - Head Exam Head Exam: NORMAL INSPECTION - ENT Exam ENT Exam: Mucous Membranes Moist - Neck Exam Neck Exam: absent: Meningismus - Respiratory Exam Respiratory Exam: Decreased Breath Sounds - Cardiovascular Exam Cardiovascular Exam: +S1, +S2 - GI/Abdominal Exam GI & Abdominal Exam: Soft. absent: Tenderness - Extremities Exam Additional comments: right foot with dressings in place Assessment and Plan - Assessment and Plan (Free Text) Plan: Assessment consider right leg skin and skin structure infection associated with severe peripheral vascular disease S/P angioplasty and stenting POD #6, growing Acinetobacter peptic ulcer disease history of hyperthyroidism gout severe peripheral arterial disease S/P left sided stenting Plan continue Cefepime day 4 and will continue to monitor clinically; follow up further plans of Podiatry
--- NOTE | 2018-03-20 17:17 | CP.PCM.PN ---
<LunaLavonne - Last Filed: 03/20/18 17:12> Subjective - Date & Time of Evaluation Date of Evaluation: 03/20/18 Time of Evaluation: 17:12 - Subjective Subjective: Podiatry Consult Note: Dr. Mc/Dr. Reyes 78 y/o male seen and evaluated at bedside with attending Dr. Mc regarding right ankle ulceration, right heel blister and left heel injury. Pt admits that he walked with the heel relief shoe with PT today and did well. States he was having pain afterwards because he was wearing the heel relief shoes while in bed. Pt admits to no pain in the left lower extremity but continued intermittent pain in the right ankle wound site. Pt has no new pedal complaints today. Patient denies F/N/V/C/SOB/CP/headache. Objective - Vital Signs/Intake and Output Vital Signs (last 24 hours): Temp Pulse Resp BP Pulse Ox 98.2 F 67 20 125/69 97 03/20/18 08:17 03/20/18 08:17 03/20/18 08:17 03/20/18 13:58 03/20/18 08:17 Intake and Output: 03/20/18 03/20/18 06:59 18:59 Intake Total 960 Output Total 450 Balance 510 - Medications Medications: Current Medications Acetaminophen (Tylenol 325mg Tab) 650 mg PO Q4H PRN PRN Reason: Pain, Mild (1-3) Last Admin: 03/15/18 17:13 Dose: 650 mg Aspirin (Ecotrin) 81 mg PO DAILY [facility] Last Admin: 03/20/18 09:29 Dose: 81 mg Betamethasone/Clotrimazole (Lotrisone) 0 ml TOP BID [facility] Clopidogrel Bisulfate (Plavix) 75 mg PO DAILY [facility] Last Admin: 03/20/18 09:29 Dose: 75 mg Collagenase (Santyl) 0 gm TOP DAILY [facility] Furosemide (Lasix) 40 mg PO TID [facility] Last Admin: 03/20/18 13:58 Dose: 40 mg Cefepime HCl (Maxipime 2gm) 2 gm in 100 mls @ 100 mls/hr IVPB Q12 [facility] PRN Reason: Protocol Stop: 03/22/18 08:31 Last Admin: 03/20/18 09:28 Dose: 100 mls/hr Levothyroxine Sodium (Synthroid) 50 mcg PO DAILY [facility] Last Admin: 03/20/18 09:29 Dose: 50 mcg Magnesium Hydroxide (Milk Of Magnesia) 30 ml PO DAILY PRN PRN Reason: Constipation Last Admin: 03/20/18 09:30 Dose: 30 ml Morphine Sulfate (Morphine) 5 mg IVP Q6H PRN PRN Reason: Pain, severe (8-10) Last Admin: 03/20/18 11:13 Dose: 5 mg Mupirocin (Bactroban Ointment) 0 gm TOP BID [facility] Ondansetron HCl (Zofran Inj) 4 mg IVP ONCE PRN PRN Reason: Nausea/Vomiting Oxycodone/Acetaminophen (Percocet 10/325 Mg Tab) 1 tab PO Q6H PRN PRN Reason: Pain, moderate (4-7) Last Admin: 03/20/18 14:28 Dose: 1 tab Potassium Chloride (Klor-Con 10) 10 meq PO BRK [facility] Last Admin: 03/20/18 09:29 Dose: 10 meq Tamsulosin HCl (Flomax) 0.4 mg PO DAILY [facility] Last Admin: 03/20/18 09:29 Dose: 0.4 mg - Labs Labs: 03/19/18 07:00 03/19/18 07:00 PT 15.2 SECONDS (9.4-12.5) H 03/15/18 08:10 INR 1.31 (0.93-1.08) H 03/15/18 08:10 - Constitutional Appears: Well, Non-toxic, No Acute Distress - Extremities Exam Additional comments: Bilateral LE focused exam: VASC: DP/PT pulses are non-palpable B/L. CFT < 3 sec to all digits. Temp gradient warm to warm from proximal to distal. Non-pitting edema noted diffusely , R>L. DERM: Right anteromedial lower leg ulceration measuring approx 2.5 cm x 2.5 cm x 0.2 cm noted. Wound base is mainly fibrotic, no probe to bone, no tunneling, no undermining, no malodor. Significant ino wound erythema noted >2cm in margins. Nails are elongated, dystrophic and discolored. Right plantar lateral heel exhibits superficial blister with mild underlying hematoma formation and necrotic tissue. Left posterior heel exhibits stage 1 pressure ulceration NEURO: Protective sensation mildly diminished ORTHO: Moderate tenderness on palpation of the distal right anterior leg at wound site. MMT: 5/5 in all four directions at the ankle and subtalar joint - Neurological Exam Neurological Exam: Alert, Awake, Oriented x3 - Psychiatric Exam Psychiatric exam: Normal Affect, Normal Mood Assessment and Plan - Assessment and Plan (Free Text) Assessment: 78 year old male with 1) painful arterial ulceration on the right lower leg secondary to PAD 2) cellulitis, 3)stage 1 pressure ulceration of the left posterior heel secondary to bed bound status Plan: Patient seen and evaluated with attending Dr. Mc Labs, vitals and charts reviewed - afebrile, WBC @ 6.8 Venous duplex of right: no evidence of DVT Vascular studies - JONAH/PVR: 0.30; Aortoiliac disease, Bilateral SFA disease with poor waveform in bilateral foot Vascular consulted - f/u recommendations - Successful angioplasty performed with multiple stents B/L Wound cultures right leg (+) growth of Acinetobacter Baumanni Wound cleaned with sterile saline and dressing applied using xeroform, ABD, DSD on the right leg, optifoam to right heel and optifoam on the left heel Continue IV abx as per ID - Cefipime Continue Multipodus boot at all times in bed - need 2nd Multipodus boot for contralateral limb Rx Santyl to be applied to R heel Will continue to follow <Gogo Mc - Last Filed: 03/24/18 17:47> Objective - Vital Signs/Intake and Output Vital Signs (last 24 hours): Temp Pulse Resp BP Pulse Ox 98.1 F 71 20 122/65 100 03/24/18 14:00 03/24/18 14:00 03/24/18 14:00 03/24/18 17:32 03/24/18 14:00 Intake and Output: 03/24/18 03/24/18 06:59 18:59 Intake Total 780 540 Output Total 600 Balance 180 540 - Medications Medications: Current Medications Acetaminophen (Tylenol 325mg Tab) 650 mg PO Q4H PRN PRN Reason: Pain, Mild (1-3) Last Admin: 03/15/18 17:13 Dose: 650 mg Aspirin (Ecotrin) 81 mg PO DAILY [facility] Last Admin: 03/24/18 10:15 Dose: 81 mg Betamethasone/Clotrimazole (Lotrisone) 0 ml TOP BID [facility] Last Admin: 03/24/18 10:00 Dose: 1 applic Clopidogrel Bisulfate (Plavix) 75 mg PO DAILY [facility] Last Admin: 03/24/18 10:15 Dose: 75 mg Collagenase (Santyl) 0 gm TOP DAILY [facility] Last Admin: 03/24/18 10:16 Dose: 1 applic Furosemide (Lasix) 40 mg PO TID [facility] Last Admin: 03/24/18 17:32 Dose: 40 mg Cefepime HCl (Maxipime 1gm) 1 gm in 100 mls @ 100 mls/hr IVPB Q12 [facility] PRN Reason: Protocol Stop: 03/30/18 10:01 Last Admin: 03/24/18 13:50 Dose: 100 mls/hr Levothyroxine Sodium (Synthroid) 75 mcg PO 0600 [facility] Last Admin: 03/24/18 06:07 Dose: 75 mcg Magnesium Hydroxide (Milk Of Magnesia) 30 ml PO DAILY PRN PRN Reason: Constipation Last Admin: 03/20/18 09:30 Dose: 30 ml Morphine Sulfate (Morphine) 5 mg IVP Q6H PRN PRN Reason: Pain, severe (8-10) Last Admin: 03/22/18 16:35 Dose: 5 mg Mupirocin (Bactroban Ointment) 0 gm TOP BID [facility] Last Admin: 03/24/18 10:15 Dose: 1 applic Ondansetron HCl (Zofran Inj) 4 mg IVP ONCE PRN PRN Reason: Nausea/Vomiting Oxycodone/Acetaminophen (Percocet 10/325 Mg Tab) 1 tab PO Q6H PRN PRN Reason: Pain, moderate (4-7) Last Admin: 03/24/18 15:56 Dose: 1 tab Potassium Chloride (Klor-Con 10) 10 meq PO BRK [facility] Last Admin: 03/24/18 10:15 Dose: 10 meq Tamsulosin HCl (Flomax) 0.4 mg PO DAILY [facility] Last Admin: 03/24/18 10:16 Dose: 0.4 mg - Labs Labs: 03/23/18 06:30 03/23/18 06:30 PT 15.2 SECONDS (9.4-12.5) H 03/15/18 08:10 INR 1.31 (0.93-1.08) H 03/15/18 08:10 Attending/Attestation - Attestation I have personally seen and examined this patient.: Yes I have fully participated in the care of the patient.: Yes I have reviewed all pertinent clinical information, including history, physical exam and plan: Yes Notes (Text): 03/24/18 17:46 I have developed the plan of care for this patient
[2018-03-20] MEDS: Clotrimazole/Betamethasone Lotion(30 ml) TOP SCH (18:35)
[2018-03-21] MEDS ORDERED: Morphine 4 mg/ml ISec IVP PRN (00:17)
--- NOTE | 2018-03-21 01:15 | PN ---
DAILY PROGRESS NOTE DATE: 03/20/2018 SUBJECTIVE: The patient is a 78-year-old male with a history of gout, congestive heart failure, benign prostatic hypertrophy, coronary artery disease and hypothyroidism who was admitted to [facility] on 03/14/2018 with cellulitis of the right lower extremity. During his hospital stay, he underwent revascularization of the right lower extremity with Dr. Yasir Reed. His EKG showed regular sinus rhythm with PAC. Chest x-ray showed no acute disease. He was started on Ceftaroline by Dr. Dixon, his Infectious Disease specialist, for Acinetobacter cultures which grew from his leg wounds. During the hospital stay, the patient was feeling well. He noted that the swelling and erythema of the legs were decreasing; however, he continued to complain of burning pain in the legs. He also was complaining of constipation. The patient did not respond to milk of magnesia in the past. PHYSICAL EXAMINATION: LUNGS: His lungs were clear anteriorly. HEART: Regular. ABDOMEN: Soft. EXTREMITIES: Show decreased edema in bilateral extremities and decreased erythema in the right lower extremity, the distal tibial area, his dressing was intact. This is being followed by Dr. Mc, the orthopedist. ASSESSMENT AND PLAN: So at this time, we will try citrate of magnesia. We are considering Senokot suppositories for constipation, which has gone on now for 6 days. We will also increase his analgesics because of the persistent pain in the leg. We are continuing to follow the patient closely. Gyoo Porter MD
[2018-03-21] MEDS: Cefepime IV 2 gm in NS 2 GM/100 ML BAG IVPB SCH ×2 (09:50→21:53)
[2018-03-21] MEDS: Potassium Chloride 10 mEq ER Tab PO SCH (09:53)
[2018-03-21] MEDS: Levothyroxine 50 MCG TAB PO SCH (09:53)
--- NOTE | 2018-03-21 12:07 | CP.PCM.PN ---
<JeremyLavonne - Last Filed: 03/21/18 12:00> Subjective - Date & Time of Evaluation Date of Evaluation: 03/21/18 Time of Evaluation: 12:00 - Subjective Subjective: Podiatry Consult Note: Dr. Mc/Dr. Reyes 78 y/o male seen and evaluated at bedside with attending Dr. Mc regarding right ankle ulceration, right heel blister and left heel injury. Pt is aware of possible transfer to rehab unit and says he hopes he can walk more there. At present denies any pain to the lower extremities but says the pain to the right ankle wound comes and goes. Pt has no new pedal complaints today. Patient denies F/N/V/C/SOB/CP/headache. Objective - Vital Signs/Intake and Output Vital Signs (last 24 hours): Temp Pulse Resp BP Pulse Ox 98 F 72 18 123/61 94 L 03/21/18 06:00 03/21/18 06:00 03/21/18 06:00 03/21/18 09:52 03/21/18 06:00 Intake and Output: 03/21/18 03/21/18 06:59 18:59 Intake Total 1060 Output Total 300 Balance 1060 -300 - Medications Medications: Current Medications Acetaminophen (Tylenol 325mg Tab) 650 mg PO Q4H PRN PRN Reason: Pain, Mild (1-3) Last Admin: 03/15/18 17:13 Dose: 650 mg Aspirin (Ecotrin) 81 mg PO DAILY [facility] Last Admin: 03/21/18 09:53 Dose: 81 mg Betamethasone/Clotrimazole (Lotrisone) 0 ml TOP BID [facility] Last Admin: 03/20/18 18:35 Dose: 1 applic Clopidogrel Bisulfate (Plavix) 75 mg PO DAILY [facility] Last Admin: 03/21/18 09:52 Dose: 75 mg Collagenase (Santyl) 0 gm TOP DAILY [facility] Furosemide (Lasix) 40 mg PO TID [facility] Last Admin: 03/21/18 09:52 Dose: 40 mg Cefepime HCl (Maxipime 2gm) 2 gm in 100 mls @ 100 mls/hr IVPB Q12 [facility] PRN Reason: Protocol Stop: 03/22/18 08:31 Last Admin: 03/21/18 09:50 Dose: 100 mls/hr Levothyroxine Sodium (Synthroid) 50 mcg PO DAILY [facility] Last Admin: 03/21/18 09:53 Dose: 50 mcg Magnesium Hydroxide (Milk Of Magnesia) 30 ml PO DAILY PRN PRN Reason: Constipation Last Admin: 03/20/18 09:30 Dose: 30 ml Morphine Sulfate (Morphine) 5 mg IVP Q6H PRN PRN Reason: Pain, severe (8-10) Stop: 03/22/18 08:52 Mupirocin (Bactroban Ointment) 0 gm TOP BID [facility] Last Admin: 03/20/18 18:34 Dose: 1 applic Ondansetron HCl (Zofran Inj) 4 mg IVP ONCE PRN PRN Reason: Nausea/Vomiting Oxycodone/Acetaminophen (Percocet 10/325 Mg Tab) 1 tab PO Q6H PRN PRN Reason: Pain, moderate (4-7) Last Admin: 03/20/18 22:02 Dose: 1 tab Potassium Chloride (Klor-Con 10) 10 meq PO BRK [facility] Last Admin: 03/21/18 09:53 Dose: 10 meq Tamsulosin HCl (Flomax) 0.4 mg PO DAILY [facility] Last Admin: 03/21/18 09:53 Dose: 0.4 mg - Labs Labs: 03/19/18 07:00 03/19/18 07:00 PT 15.2 SECONDS (9.4-12.5) H 03/15/18 08:10 INR 1.31 (0.93-1.08) H 03/15/18 08:10 - Constitutional Appears: Well, Non-toxic, No Acute Distress - Extremities Exam Additional comments: Bilateral LE focused exam: VASC: DP/PT pulses are non-palpable B/L. CFT < 3 sec to all digits. Temp gradient warm to warm from proximal to distal. Non-pitting edema noted diffusely , R>L. DERM: Right anteromedial lower leg ulceration measuring approx 2.5 cm x 2.5 cm x 0.2 cm noted. Wound base is mainly fibrotic, no probe to bone, no tunneling, no undermining, no malodor. Significant ino wound erythema noted >2cm in margins. Right plantar lateral heel exhibits superficial blister with mild underlying hematoma formation and necrotic tissue - softer today, minimal fluctuance, no break in skin. Left posterior heel exhibits stage 1 pressure ulceration NEURO: Protective sensation mildly diminished ORTHO: Moderate tenderness on palpation of the distal right anterior leg at wound site. MMT: 5/5 in all four directions at the ankle and subtalar joint - Neurological Exam Neurological Exam: Alert, Awake, Oriented x3 - Psychiatric Exam Psychiatric exam: Normal Affect, Normal Mood Assessment and Plan - Assessment and Plan (Free Text) Assessment: 78 year old male with 1) painful arterial ulceration on the right lower leg secondary to PAD 2) cellulitis, 3) right plantar heel blister with fibrotic tissue changes 4)stage 1 pressure ulceration of the left posterior heel secondary to bed bound status Plan: Patient seen and evaluated with attending Dr. Mc Labs, vitals and charts reviewed - afebrile, WBC @ 6.8 Venous duplex of right: no evidence of DVT Vascular studies - JONAH/PVR: 0.30; Aortoiliac disease, Bilateral SFA disease with poor waveform in bilateral foot Vascular consulted - f/u recommendations - Successful angioplasty performed with multiple stents B/L Wound cultures right leg (+) growth of Acinetobacter Baumanni Wound cleaned with sterile saline and dressing applied using Lotrisone cream, xeroform, ABD, DSD on the right leg, Santyl and optifoam to right heel and optifoam on the left heel Continue IV abx as per ID - Cefipime Continue Multipodus boots at all times in bed Will continue to follow <Gogo Mc - Last Filed: 03/24/18 17:52> Objective - Vital Signs/Intake and Output Vital Signs (last 24 hours): Temp Pulse Resp BP Pulse Ox 98.1 F 71 20 122/65 100 03/24/18 14:00 03/24/18 14:00 03/24/18 14:00 03/24/18 17:32 03/24/18 14:00 Intake and Output: 03/24/18 03/24/18 06:59 18:59 Intake Total 780 540 Output Total 600 Balance 180 540 - Medications Medications: Current Medications Acetaminophen (Tylenol 325mg Tab) 650 mg PO Q4H PRN PRN Reason: Pain, Mild (1-3) Last Admin: 03/15/18 17:13 Dose: 650 mg Aspirin (Ecotrin) 81 mg PO DAILY [facility] Last Admin: 03/24/18 10:15 Dose: 81 mg Betamethasone/Clotrimazole (Lotrisone) 0 ml TOP BID [facility] Last Admin: 03/24/18 10:00 Dose: 1 applic Clopidogrel Bisulfate (Plavix) 75 mg PO DAILY [facility] Last Admin: 03/24/18 10:15 Dose: 75 mg Collagenase (Santyl) 0 gm TOP DAILY [facility] Last Admin: 03/24/18 10:16 Dose: 1 applic Furosemide (Lasix) 40 mg PO TID [facility] Last Admin: 03/24/18 17:32 Dose: 40 mg Cefepime HCl (Maxipime 1gm) 1 gm in 100 mls @ 100 mls/hr IVPB Q12 [facility] PRN Reason: Protocol Stop: 03/30/18 10:01 Last Admin: 03/24/18 13:50 Dose: 100 mls/hr Levothyroxine Sodium (Synthroid) 75 mcg PO 0600 [facility] Last Admin: 03/24/18 06:07 Dose: 75 mcg Magnesium Hydroxide (Milk Of Magnesia) 30 ml PO DAILY PRN PRN Reason: Constipation Last Admin: 03/20/18 09:30 Dose: 30 ml Morphine Sulfate (Morphine) 5 mg IVP Q6H PRN PRN Reason: Pain, severe (8-10) Last Admin: 03/22/18 16:35 Dose: 5 mg Mupirocin (Bactroban Ointment) 0 gm TOP BID [facility] Last Admin: 03/24/18 10:15 Dose: 1 applic Ondansetron HCl (Zofran Inj) 4 mg IVP ONCE PRN PRN Reason: Nausea/Vomiting Oxycodone/Acetaminophen (Percocet 10/325 Mg Tab) 1 tab PO Q6H PRN PRN Reason: Pain, moderate (4-7) Last Admin: 03/24/18 15:56 Dose: 1 tab Potassium Chloride (Klor-Con 10) 10 meq PO BRK [facility] Last Admin: 03/24/18 10:15 Dose: 10 meq Tamsulosin HCl (Flomax) 0.4 mg PO DAILY [facility] Last Admin: 03/24/18 10:16 Dose: 0.4 mg - Labs Labs: 03/23/18 06:30 03/23/18 06:30 PT 15.2 SECONDS (9.4-12.5) H 03/15/18 08:10 INR 1.31 (0.93-1.08) H 03/15/18 08:10 Attending/Attestation - Attestation I have personally seen and examined this patient.: Yes I have fully participated in the care of the patient.: Yes I have reviewed all pertinent clinical information, including history, physical exam and plan: Yes Notes (Text): 03/24/18 17:52 I saw patient with the resident and with Dr Stephanie DURAN - I also spoke with Dr Yasir Reed regrding the patient's vascular status - pt now with one vessel run off to the lower leg and foot
[2018-03-21] MEDS: Clotrimazole/Betamethasone Lotion(30 ml) TOP SCH ×2 (13:57→18:23)
[2018-03-21] MEDS: Collagenase 250 Units/gm Ointment(30 gm) TOP SCH (13:58)
[2018-03-21] MEDS: Oxycodone/Acetaminophen 10/325 mg Tab PO PRN ×2 (14:17→23:29)
--- NOTE | 2018-03-21 18:46 | CP.PCM.PN ---
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 It was on L mid-clavicular rib 5-6. It was positional, non dypsneic. Pt was resting in bed when onset. When interview pt, he said that the pain is gone. No radiation to neck, arm, back. He said he had a similar pain 4 months ago and he endorsed that taking aspirin would help. Denies MONTES, diaphoresis, SOB, N/V, numbness/tingling. (+) R leg pain from cellulitis O: VS: HR 70s 135/70. POx 95 GEN: NAD HEENT: EOMI, supple neck, moist mucosa Card: regular s1 s2 no m/r/g PUlm: CTA b/l, no w/r/r Abdomen: soft NTND LE: edema and increased warm, in air boots A/P: Atypical chest pain - Stat EKG: NSR. Nonspecific T wave abnormality. - ASA 325 mg - CBC, CMP, Cardiac iso, mg - Communicated with Dr Porter - Cardiology consult: Dr. Camarillo - will sign out to night house doc: if trops elevated, will trend and upgrade to tele. Objective - Vital Signs/Intake and Output Vital Signs (last 24 hours): Temp Pulse Resp BP Pulse Ox 98 F 74 20 132/80 96 03/21/18 14:00 03/21/18 14:00 03/21/18 14:00 03/21/18 14:12 03/21/18 14:00 Intake and Output: 03/21/18 03/21/18 06:59 18:59 Intake Total 1060 Output Total 300 Balance 1060 -300 - Medications Medications: Current Medications Acetaminophen (Tylenol 325mg Tab) 650 mg PO Q4H PRN PRN Reason: Pain, Mild (1-3) Last Admin: 03/15/18 17:13 Dose: 650 mg Aspirin (Ecotrin) 81 mg PO DAILY [facility] Last Admin: 03/21/18 09:53 Dose: 81 mg Betamethasone/Clotrimazole (Lotrisone) 0 ml TOP BID [facility] Last Admin: 03/21/18 18:23 Dose: Not Given Clopidogrel Bisulfate (Plavix) 75 mg PO DAILY [facility] Last Admin: 03/21/18 09:52 Dose: 75 mg Collagenase (Santyl) 0 gm TOP DAILY [facility] Last Admin: 03/21/18 13:58 Dose: Not Given Furosemide (Lasix) 40 mg PO TID [facility] Last Admin: 03/21/18 18:23 Dose: Not Given Cefepime HCl (Maxipime 2gm) 2 gm in 100 mls @ 100 mls/hr IVPB Q12 [facility] PRN Reason: Protocol Stop: 03/22/18 08:31 Last Admin: 03/21/18 09:50 Dose: 100 mls/hr Levothyroxine Sodium (Synthroid) 50 mcg PO DAILY [facility] Last Admin: 03/21/18 09:53 Dose: 50 mcg Magnesium Hydroxide (Milk Of Magnesia) 30 ml PO DAILY PRN PRN Reason: Constipation Last Admin: 03/20/18 09:30 Dose: 30 ml Morphine Sulfate (Morphine) 5 mg IVP Q6H PRN PRN Reason: Pain, severe (8-10) Stop: 03/22/18 08:52 Mupirocin (Bactroban Ointment) 0 gm TOP BID [facility] Last Admin: 03/21/18 18:22 Dose: Not Given Ondansetron HCl (Zofran Inj) 4 mg IVP ONCE PRN PRN Reason: Nausea/Vomiting Oxycodone/Acetaminophen (Percocet 10/325 Mg Tab) 1 tab PO Q6H PRN PRN Reason: Pain, moderate (4-7) Last Admin: 03/21/18 14:17 Dose: 1 tab Potassium Chloride (Klor-Con 10) 10 meq PO BRK [facility] Last Admin: 03/21/18 09:53 Dose: 10 meq Tamsulosin HCl (Flomax) 0.4 mg PO DAILY [facility] Last Admin: 03/21/18 09:53 Dose: 0.4 mg - Labs Labs: 03/19/18 07:00 03/19/18 07:00 PT 15.2 SECONDS (9.4-12.5) H 03/15/18 08:10 INR 1.31 (0.93-1.08) H 03/15/18 08:10
[2018-03-21 19:05] LABS: BASO # 0.02 K/mm3 (0.0-2.0); BASO % 0.3 % (0.0-3.0); EOS # 0.3 (0.0-0.7); EOS % 4.1 % (1.5-5.0); GRAN # 4.74 (1.4-6.5); GRAN % 64.6 % (50.0-68.0); HEMOGLOBIN 9.3 g/dL (14.0-18.0); LYMPH # 1.7 (1.2-3.4); LYMPH % 22.5 % (22.0-35.0); MEAN CELL VOLUME 86.7 fl (80.0-105.0); MEAN CORPUSCULAR HEMOGLOBIN 27.4 pg (25.0-35.0); MEAN CORPUSCULAR HGB CONC 31.6 g/dl (31.0-37.0); MEAN PLATELET VOLUME 9.9 fl (7.0-11.0); MONO # 0.6 (0.1-0.6); MONO % 8.5 % (1.0-6.0); RBC 3.39 10^6/uL (3.5-6.1); RED CELL DISTRIBUTION WIDTH 14.9 % (11.5-14.5); WHITE BLOOD COUNT 7.3 10^3/ul (4.5-11.0)
[2018-03-21 19:15] LABS: ALBUMIN 2.9 g/dL (3.0-4.8)
[2018-03-21 20:14] LABS: TROPONIN I 0.03 ng/mL
--- NOTE | 2018-03-21 22:15 | CARD ---
APPROVED REPORT EKG Measurement Heart [id number] <Conclusion> Normal sinus rhythm Nonspecific T wave abnormality Abnormal ECG
--- NOTE | 2018-03-22 01:11 | PN ---
DATE: 03/21/2018 SUBJECTIVE: Patient is seen in bed, in no acute distress, nontoxic. No fevers and chills. He is awake and alert. He was seen early this morning. PHYSICAL EXAMINATION: VITAL SIGNS: Temperature 98, blood pressure is 130/80, respiratory rate of 20, heart rate of 74. HEENT: Unremarkable. NECK: Supple. LUNGS: Decreased breath sounds. HEART: Normal S1 and S2. ABDOMEN: Soft, nontender. LABORATORY EXAMINATION: Reveals a white count of 7.3, hemoglobin of 9, platelets of 266. Chemistries reveal a BUN of 17, creatinine of 1.4. Patient has Acinetobacter baumannii from the leg that is pansensitive to Cipro, cefepime, gentamicin, meropenem, and Zosyn. The leg was examined earlier this morning with Dr. Mc and her team; erythema is much improved. ASSESSMENT AND PLAN: This 78-year-old male was seen early this morning in room 571, bed 2, with right leg skin and skin structure infection with Acinetobacter associated with severe peripheral vascular disease, status post angioplasty and stenting, postprocedure day 7, in a patient with history of peptic ulcer disease, hyperthyroidism, gout, and peripheral arterial disease, on day number 5 of cefepime. We will continue with you and monitor closely. Patient is sill having significant pain, difficulty ambulating. Satya Leslie MD
--- NOTE | 2018-03-22 03:19 | PN ---
DATE: 03/21/2018 DAILY PROGRESS NOTE SUBJECTIVE: Patient was seen this morning in room 571, bed 2, resting in bed comfortably with his son at the bedside. His leg has clinically improved. He is in high spirits. PHYSICAL EXAMINATION: HEAD AND NECK: Unremarkable. LUNGS: Show good aeration, right and left with his COPD. HEART: Regular, not tachycardic. EXTREMITIES: The edema has markedly decreased. Some right leg edema continues. The leg is it is red and warm as it was upon arrival. Cellulitis is dramatically improved. Intravenous antibiotics continued per Infectious Disease medical consultant. Ulcer on the left heel is covered. There is no pressure on that heel as his leg is raised at the calf. IMPRESSION: Cellulitis, resolving; constipation, now resolved with bowel movement today. PLAN: I spoke with the patient the discharge plans suggesting transitional care unit. The patient is willing to go to TCU at [facility]. He is declining other opportunities at subacute rehab facilities and says he would rather go home under the care of his sons. We will put him for TCU eval and possible transfer as early as tomorrow. Cezar Porter MD
[2018-03-22] MEDS: Potassium Chloride 10 mEq ER Tab PO SCH (07:57)
[2018-03-22 10:30] LABS: TROPONIN I 0.03 ng/mL
[2018-03-22] MEDS: Cefepime 1gm in NS 100ml 1 GM/100 ML BAG IVPB SCH ×2 (10:44→21:03)
[2018-03-22] MEDS: Clotrimazole/Betamethasone Lotion(30 ml) TOP SCH ×2 (10:45→17:49)
[2018-03-22] MEDS: Collagenase 250 Units/gm Ointment(30 gm) TOP SCH (10:45)
[2018-03-22] MEDS: Oxycodone/Acetaminophen 10/325 mg Tab PO PRN (10:48)
[2018-03-22] MEDS: Levothyroxine 50 MCG TAB PO SCH (10:50)
--- NOTE | 2018-03-22 12:59 | PN ---
DATE: 03/22/2018 LOCATION: Patient is in 571, bed 2. SUBJECTIVE: Patient was seen early this morning. PHYSICAL EXAMINATION: VITAL SIGNS: Temperature is 98, blood pressure is 120/60, respiratory rate of 20, heart rate of 74. HEENT: Unremarkable. NECK: Supple. LUNGS: Have decreased breath sounds. HEART: Normal S1 and S2. ABDOMEN: Soft and nontender. LABORATORY EXAMINATION: Reveals a white count of 7.3, hemoglobin of 9, platelets of 266. Coagulation is noted. Chemistry reveals a BUN of 17, creatinine of 1.4. Microbiology reveals Acinetobacter baumannii. Review of orders reveals the cefepime has been dropped by the Pharmacy. ASSESSMENT AND PLAN: A 78-year-old male was seen early this morning in 571, bed 2, with right leg skin and skin structure infection with Acinetobacter associated with severe peripheral vascular disease, status post angioplasty and stenting, postprocedure day #8, in a patient with history of peptic ulcer disease, hyperthyroidism, gout, peripheral arterial disease, day #6 of cefepime. We will reorder cefepime. With a slight increase in creatinine, we will also order urine for eosinophils. Adjust the cefepime from a gram every 12 hours and we will follow closely with you. Satya Leslie MD
--- NOTE | 2018-03-22 13:50 | CP.PCM.PN ---
<Lavonne Luna - Last Filed: 03/22/18 13:47> Subjective - Date & Time of Evaluation Date of Evaluation: 03/22/18 Time of Evaluation: 13:47 - Subjective Subjective: Podiatry Progress Note: Dr. Mc/Dr. Reyes 78 y/o male seen and evaluated at bedside this morning for right ankle ulceration, right heel blister and left heel injury. Pt says he has been walking a little more each day. States the pain in the right ankle wound comes and goes but is better overall. Pt has no new pedal complaints today. Patient denies F/N/V/C/SOB/CP/headache. Objective - Vital Signs/Intake and Output Vital Signs (last 24 hours): Temp Pulse Resp BP Pulse Ox 97.4 F L 71 20 136/74 97 03/22/18 07:00 03/22/18 07:00 03/22/18 07:00 03/22/18 10:49 03/22/18 07:00 Intake and Output: 03/22/18 03/22/18 06:59 18:59 Intake Total 720 Output Total 400 Balance 320 - Medications Medications: Current Medications Acetaminophen (Tylenol 325mg Tab) 650 mg PO Q4H PRN PRN Reason: Pain, Mild (1-3) Last Admin: 03/15/18 17:13 Dose: 650 mg Aspirin (Ecotrin) 81 mg PO DAILY [facility] Last Admin: 03/22/18 10:49 Dose: 81 mg Betamethasone/Clotrimazole (Lotrisone) 0 ml TOP BID [facility] Last Admin: 03/22/18 10:45 Dose: 1 applic Clopidogrel Bisulfate (Plavix) 75 mg PO DAILY [facility] Last Admin: 03/22/18 10:50 Dose: 75 mg Collagenase (Santyl) 0 gm TOP DAILY [facility] Last Admin: 03/22/18 10:45 Dose: 1 applic Furosemide (Lasix) 40 mg PO TID [facility] Last Admin: 03/22/18 10:49 Dose: 40 mg Cefepime HCl (Maxipime 1gm) 1 gm in 100 mls @ 100 mls/hr IVPB Q12 JUAN PRN Reason: Protocol Stop: 03/30/18 10:01 Last Admin: 03/22/18 10:44 Dose: 100 mls/hr Levothyroxine Sodium (Synthroid) 50 mcg PO DAILY [facility] Last Admin: 03/22/18 10:50 Dose: 50 mcg Magnesium Hydroxide (Milk Of Magnesia) 30 ml PO DAILY PRN PRN Reason: Constipation Last Admin: 03/20/18 09:30 Dose: 30 ml Mupirocin (Bactroban Ointment) 0 gm TOP BID [facility] Last Admin: 03/22/18 10:45 Dose: 1 applic Ondansetron HCl (Zofran Inj) 4 mg IVP ONCE PRN PRN Reason: Nausea/Vomiting Oxycodone/Acetaminophen (Percocet 10/325 Mg Tab) 1 tab PO Q6H PRN PRN Reason: Pain, moderate (4-7) Last Admin: 03/22/18 10:48 Dose: 1 tab Potassium Chloride (Klor-Con 10) 10 meq PO BRK [facility] Last Admin: 03/22/18 07:57 Dose: 10 meq Tamsulosin HCl (Flomax) 0.4 mg PO DAILY [facility] Last Admin: 03/22/18 10:49 Dose: 0.4 mg - Labs Labs: 03/21/18 18:53 03/21/18 18:53 PT 15.2 SECONDS (9.4-12.5) H 03/15/18 08:10 INR 1.31 (0.93-1.08) H 03/15/18 08:10 - Constitutional Appears: Well, Non-toxic, No Acute Distress - Extremities Exam Additional comments: Bilateral LE focused exam: VASC: DP/PT pulses are non-palpable B/L. CFT < 3 sec to all digits. Temp gradient warm to warm from proximal to distal. Non-pitting edema noted diffusely , R>L. DERM: Right anteromedial lower leg ulceration measuring approx 2.5 cm x 2.5 cm x 0.2 cm noted. Wound base is mainly fibrotic, no probe to bone, no tunneling, no undermining, no malodor. Significant ino wound erythema noted >2cm in margins. Right plantar lateral heel exhibits superficial blister with mild underlying hematoma formation and necrotic tissue - softer today, minimal fluctuance, no break in skin. Left posterior heel exhibits stage 1 pressure ulceration NEURO: Protective sensation mildly diminished ORTHO: Moderate tenderness on palpation of the distal right anterior leg at wound site. MMT: 5/5 in all four directions at the ankle and subtalar joint - Neurological Exam Neurological Exam: Alert, Awake, Oriented x3 - Psychiatric Exam Psychiatric exam: Normal Affect, Normal Mood Assessment and Plan - Assessment and Plan (Free Text) Assessment: 78 year old male with 1) painful arterial ulceration on the right lower leg secondary to PAD 2) cellulitis, 3) right plantar heel blister with fibrotic tissue changes 4)stage 1 pressure ulceration of the left posterior heel secondary to bed bound status Plan: Patient seen and evaluated Discussed with attending Dr. Reyes Labs, vitals and charts reviewed - afebrile, WBC 7.3 Venous duplex of right: no evidence of DVT Vascular studies - JONAH/PVR: 0.30; Aortoiliac disease, Bilateral SFA disease with poor waveform in bilateral foot Vascular consulted - f/u recommendations - Successful angioplasty performed with multiple stents B/L Wound cultures right leg (+) growth of Acinetobacter Baumanni Wound to R ankle cleaned with sterile saline and dressing applied using Lotrisone cream, xeroform, ABD, DSD on the right leg Santyl and optifoam applied to right heel blister; Optifoam applied on the left heel Continue IV abx as per ID - Cefipime Continue Multipodus boots at all times in bed Will continue to follow <Liang Reyes - Last Filed: 03/22/18 15:40> Objective - Vital Signs/Intake and Output Vital Signs (last 24 hours): Temp Pulse Resp BP Pulse Ox 97.4 F L 71 20 127/75 97 03/22/18 07:00 03/22/18 07:00 03/22/18 07:00 03/22/18 14:01 03/22/18 07:00 Intake and Output: 03/22/18 03/22/18 06:59 18:59 Intake Total 720 Output Total 400 Balance 320 - Medications Medications: Current Medications Acetaminophen (Tylenol 325mg Tab) 650 mg PO Q4H PRN PRN Reason: Pain, Mild (1-3) Last Admin: 03/15/18 17:13 Dose: 650 mg Aspirin (Ecotrin) 81 mg PO DAILY [facility] Last Admin: 03/22/18 10:49 Dose: 81 mg Betamethasone/Clotrimazole (Lotrisone) 0 ml TOP BID [facility] Last Admin: 03/22/18 10:45 Dose: 1 applic Clopidogrel Bisulfate (Plavix) 75 mg PO DAILY [facility] Last Admin: 03/22/18 10:50 Dose: 75 mg Collagenase (Santyl) 0 gm TOP DAILY [facility] Last Admin: 03/22/18 10:45 Dose: 1 applic Furosemide (Lasix) 40 mg PO TID [facility] Last Admin: 03/22/18 14:01 Dose: 40 mg Cefepime HCl (Maxipime 1gm) 1 gm in 100 mls @ 100 mls/hr IVPB Q12 JUAN PRN Reason: Protocol Stop: 03/30/18 10:01 Last Admin: 03/22/18 10:44 Dose: 100 mls/hr Levothyroxine Sodium (Synthroid) 50 mcg PO DAILY [facility] Last Admin: 03/22/18 10:50 Dose: 50 mcg Magnesium Hydroxide (Milk Of Magnesia) 30 ml PO DAILY PRN PRN Reason: Constipation Last Admin: 03/20/18 09:30 Dose: 30 ml Mupirocin (Bactroban Ointment) 0 gm TOP BID [facility] Last Admin: 03/22/18 10:45 Dose: 1 applic Ondansetron HCl (Zofran Inj) 4 mg IVP ONCE PRN PRN Reason: Nausea/Vomiting Oxycodone/Acetaminophen (Percocet 10/325 Mg Tab) 1 tab PO Q6H PRN PRN Reason: Pain, moderate (4-7) Last Admin: 03/22/18 10:48 Dose: 1 tab Potassium Chloride (Klor-Con 10) 10 meq PO BRK [facility] Last Admin: 03/22/18 07:57 Dose: 10 meq Tamsulosin HCl (Flomax) 0.4 mg PO DAILY [facility] Last Admin: 03/22/18 10:49 Dose: 0.4 mg - Labs Labs: 03/21/18 18:53 03/21/18 18:53 PT 15.2 SECONDS (9.4-12.5) H 03/15/18 08:10 INR 1.31 (0.93-1.08) H 03/15/18 08:10 Attending/Attestation - Attestation I have personally seen and examined this patient.: Yes I have fully participated in the care of the patient.: Yes I have reviewed all pertinent clinical information, including history, physical exam and plan: Yes
[2018-03-22] MEDS ORDERED: Morphine 4 mg/ml ISec IVP PRN (16:10)
[2018-03-22 16:21] LABS: TROPONIN I 0.02 ng/mL
--- NOTE | 2018-03-22 21:39 | CON ---
DATE: 03/22/2018 REASON FOR CONSULTATION: Chest pain, severe peripheral arterial disease, admitted with decreased JONAH and cellulitis of lower extremity. BRIEF CLINICAL HISTORY: This is a 78-year-old ex-smoker with history of severe peripheral arterial disease, is status post PTCA 10 years ago of lower extremity and repeat peripheral intervention done on 03/14/2018 where the patient had abdominal aortogram, bilateral lower extremity run off and right SFA CSI atherectomy with drug-eluting stent and angioplasty done and distal stent was placed, right proximal and anterior tibial artery CSI atherectomy and balloon angioplasty and left common iliac angioplasty and stent was done. On 03/14/2018, came in with complaint of swelling of the leg. Also, patient complained of one episode of chest pain, took two aspirin, it completely went on, the same similar episode happened two years ago and took an aspirin and completely resolved. Patient states the chest pain was very sharp in nature, also state that he had a stress test and echo was done at [facility] approximately 2 weeks ago, result unknown. Patient had stress test and echo done two weeks ago at [facility]. PAST MEDICAL HISTORY: Significant for severe PAD, ex-tobacco abuse, history of cellulitis, history of recent JONAH/PVR done that was severely decreased JONAH and PVR and severely abnormal JONAH at rest, had aortic disease. Then patient had peripheral intervention done by Dr. Reed, dated 03/14/2018 where the patient underwent abdominal aortogram and bilateral lower extremity run off and then right SFA CSI atherectomy done and right proximal anterior tibial CSI done, left common iliac PTCA with stent was done, dated 03/14/2018, history of benign prostatic hypertrophy, history of hypothyroidism. SOCIAL HISTORY: Ex-smoker, used to do one and a half pack to two pack a day for more than 60 years, started at the age of 11 and quit 5 years ago. 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 Denies any history of alcohol abuse. FAMILY HISTORY: Coronary artery disease in father, but he used to smoke and drink as well. ALLERGIES: ALLERGIC TO SEAFOOD, GET RASH. CURRENT MEDICATIONS: Tramadol one tablet daily, Flomax one tablet daily, Plavix 75 mg daily, aspirin 81 mg daily, levothyroxine one tablet daily, potassium chloride one tablet daily, Lasix 40 mg t.i.d. REVIEW OF SYSTEMS: As per HPI. Patient denies any chest pain. He states the very sharp pain happened two days ago, took two aspirin, came to the emergency room, also has a similar episode 2 years ago and completely resolved. A stress test was offered. Patient wanted to hold it off. On further looking electronic medical record it apparently shows that patient had echo and stress test in [facility] as per Dr. Porter's history and physical on 03/14/2018 and no further episode of chest pain noted. Patient denies any chest pain or dyspnea on exertion. Further review of systems as per HPI. PHYSICAL EXAMINATION: VITAL SIGNS: Height of the patient 5 feet and weight of the patient 175 pounds, body mass index 30 kg/m2. Rest of examination as follows, temperature afebrile, heart rate 71, blood pressure 134/60. HEENT: PERRLA. Extraocular muscles intact. NECK: Supple. No carotid bruit or thyromegaly. CHEST: Clear to auscultation. HEART: S1 and S2 regular. ABDOMEN: Soft. EXTREMITIES: Clubbing and cyanosis negative. LABORATORY DATA: Blood workup as follows; WBC 7.3, hemoglobin 9.3, hematocrit 29.4, platelet count 266. Chemistry showed sodium 130, potassium 3.6, chloride 91, carbon dioxide 32, anion gap of 9, BUN 17, creatinine 1.4. Troponin 0.03. IMPRESSION: Atypical chest pain with multiple risk factor, coronary artery disease, suggest echo and stress test. Patient wanted to hold it off, electronic medical record and history and physical shows the patient had stress test two weeks ago. We will review it and follow up CPK, troponin because the patient had high risk for coronary artery disease because of chronic obstructive pulmonary disease and ex-smoker. We will follow CPK, troponin trend. Further recommendation after reviewing the result from [place] as well as the troponin result. Interim, we will get lipid profile, TSH, hemoglobin A1c. Continue beta-tucker low dose. Continue aspirin. Continue Plavix. Patient had recently peripheral intervention done and continue low dose beta-tucker. We will follow with you. Thank you, Dr. Travis for providing us the opportunity in taking care of Satya Shelton. Ginger Vasquez MD
--- NOTE | 2018-03-22 21:57 | PN ---
DATE: 03/22/2018 SUBJECTIVE: The patient was seen this Sunday morning in room 571, bed 2 with no visitors present. He is in bed, comfortable. Cellulitis of the lower extremities are dramatically improving. Legs are elevated. Heels are not with cushioned boots in place. He had an episode of chest pain last night and was seen by the house physician. Troponins were ordered and cardiology consult was called. PHYSICAL EXAMINATION LUNGS: Showed good aeration, right and left. HEART: Regular, not tachycardiac. EXTREMITIES: Right leg remains little bit swollen, but erythema and cellulitis has markedly improved. IMPRESSION: 1. Cellulitis of the right leg. 2. Peripheral vascular disease. 3. Chest pain last night in 78 yo man with PAD PLAN: Case was discussed with Interventional Radiology. No further intervention on PAD at this point. We will continue antibiotics, physical therapy, out of bed. Will discuss with cardiology for likely Thal stress. Afterwhich, I am looking for him to be transferred to transitional care unit where he can ambulate and increase activity level for discharge to home. Cezar Porter MD [email or web address]
[2018-03-23 07:27] LABS: BASO # 0.02 K/mm3 (0.0-2.0); BASO % 0.3 % (0.0-3.0); EOS # 0.4 (0.0-0.7); EOS % 5.3 % (1.5-5.0); GRAN # 4.2 (1.4-6.5); GRAN % 63.3 % (50.0-68.0); HEMOGLOBIN 10.1 g/dL (14.0-18.0); LYMPH # 1.5 (1.2-3.4); LYMPH % 22.1 % (22.0-35.0); MEAN CELL VOLUME 85.9 fl (80.0-105.0); MEAN CORPUSCULAR HEMOGLOBIN 27.9 pg (25.0-35.0); MEAN CORPUSCULAR HGB CONC 32.5 g/dl (31.0-37.0); MEAN PLATELET VOLUME 9.6 fl (7.0-11.0); MONO # 0.6 (0.1-0.6); RBC 3.62 10^6/uL (3.5-6.1); RED CELL DISTRIBUTION WIDTH 14.6 % (11.5-14.5); WHITE BLOOD COUNT 6.6 10^3/ul (4.5-11.0)
[2018-03-23 07:45] LABS: ALBUMIN 3.2 g/dL (3.0-4.8); ALT/SGPT 53 U/L (7-56); AST/SGOT 46 U/L (17-59); BLOOD UREA NITROGEN 14 mg/dL (7-21); CALCIUM 8.7 mg/dL (8.4-10.5); GFR AFRICAN-AMERICAN > 60; GFR NON-AFRICAN AMERICAN > 60; HDL CHOLESTEROL 24 mg/dL (29-60)
[2018-03-23 07:51] LABS: LDL CHOLESTEROL 104 mg/dL (0-129)
[2018-03-23] MEDS: Levothyroxine 50 MCG TAB PO SCH (09:47)
[2018-03-23] MEDS: Potassium Chloride 10 mEq ER Tab PO SCH (09:48)
[2018-03-23] MEDS: Cefepime 1gm in NS 100ml 1 GM/100 ML BAG IVPB SCH ×2 (09:48→21:16)
[2018-03-23] MEDS: Clotrimazole/Betamethasone Lotion(30 ml) TOP SCH ×2 (09:50→17:18)
[2018-03-23] MEDS: Collagenase 250 Units/gm Ointment(30 gm) TOP SCH (09:51)
--- NOTE | 2018-03-23 11:54 | CP.PCM.PN ---
Subjective - Date & Time of Evaluation Date of Evaluation: 03/23/18 Time of Evaluation: 09:00 - Subjective Subjective: Lying in bed,awake,no distress, denies chest pain Reason for consultation and follow up: cardiac evaluation, chest pain, severe peripheral arterial disease, cellulitis Seen and examined by me and Dr. Camarillo Objective - Vital Signs/Intake and Output Vital Signs (last 24 hours): Temp Pulse Resp BP Pulse Ox 97.9 F 68 20 145/85 96 03/23/18 08:00 03/23/18 08:00 03/23/18 08:00 03/23/18 09:48 03/23/18 08:00 Intake and Output: 03/23/18 03/23/18 06:59 18:59 Intake Total 180 Output Total 400 Balance -220 - Medications Medications: Current Medications Acetaminophen (Tylenol 325mg Tab) 650 mg PO Q4H PRN PRN Reason: Pain, Mild (1-3) Last Admin: 03/15/18 17:13 Dose: 650 mg Aspirin (Ecotrin) 81 mg PO DAILY [facility] Last Admin: 03/23/18 09:48 Dose: 81 mg Betamethasone/Clotrimazole (Lotrisone) 0 ml TOP BID [facility] Last Admin: 03/23/18 09:50 Dose: 1 applic Clopidogrel Bisulfate (Plavix) 75 mg PO DAILY [facility] Last Admin: 03/23/18 09:48 Dose: 75 mg Collagenase (Santyl) 0 gm TOP DAILY [facility] Last Admin: 03/23/18 09:51 Dose: 1 applic Furosemide (Lasix) 40 mg PO TID [facility] Last Admin: 03/23/18 09:48 Dose: 40 mg Cefepime HCl (Maxipime 1gm) 1 gm in 100 mls @ 100 mls/hr IVPB Q12 JUAN PRN Reason: Protocol Stop: 03/30/18 10:01 Last Admin: 03/23/18 09:48 Dose: 100 mls/hr Levothyroxine Sodium (Synthroid) 50 mcg PO DAILY [facility] Last Admin: 03/23/18 09:47 Dose: 50 mcg Magnesium Hydroxide (Milk Of Magnesia) 30 ml PO DAILY PRN PRN Reason: Constipation Last Admin: 03/20/18 09:30 Dose: 30 ml Morphine Sulfate (Morphine) 5 mg IVP Q6H PRN PRN Reason: Pain, severe (8-10) Last Admin: 03/22/18 16:35 Dose: 5 mg Mupirocin (Bactroban Ointment) 0 gm TOP BID [facility] Last Admin: 03/23/18 09:50 Dose: 1 applic Ondansetron HCl (Zofran Inj) 4 mg IVP ONCE PRN PRN Reason: Nausea/Vomiting Oxycodone/Acetaminophen (Percocet 10/325 Mg Tab) 1 tab PO Q6H PRN PRN Reason: Pain, moderate (4-7) Last Admin: 03/22/18 10:48 Dose: 1 tab Potassium Chloride (Klor-Con 10) 10 meq PO BRK [facility] Last Admin: 03/23/18 09:48 Dose: 10 meq Tamsulosin HCl (Flomax) 0.4 mg PO DAILY [facility] Last Admin: 03/23/18 09:48 Dose: 0.4 mg - Labs Labs: 03/23/18 06:30 03/23/18 06:30 PT 15.2 SECONDS (9.4-12.5) H 03/15/18 08:10 INR 1.31 (0.93-1.08) H 03/15/18 08:10 - Constitutional Appears: No Acute Distress - Head Exam Head Exam: NORMOCEPHALIC - Eye Exam Eye Exam: Normal appearance Pupil Exam: NORMAL ACCOMODATION - ENT Exam ENT Exam: Mucous Membranes Moist - Respiratory Exam Respiratory Exam: Clear to Ausculation Bilateral, NORMAL BREATHING PATTERN - Cardiovascular Exam Cardiovascular Exam: +S1, +S2 - GI/Abdominal Exam GI & Abdominal Exam: Soft, Normal Bowel Sounds - Extremities Exam Extremities Exam: Pedal Edema Additional comments: 2+ edema, cellulitis, DTI - Neurological Exam Neurological Exam: Alert, Awake, Oriented x3 - Psychiatric Exam Psychiatric exam: Normal Affect, Normal Mood - Skin Skin Exam: Intact, Normal Color, Warm Assessment and Plan - Assessment and Plan (Free Text) Assessment: A 78 year old male came in to the ER due to cellulitis. History of severe PAD, ex smoker, abnormal JONAH test, cellulitis, common iliac PTCA with stent, BPH, hypothyroidism Plan: For ECHO and Stress test Stable heart rate and blood pressure Troponin level normal Denies chest pain Being followed up by Vascular On ASA 81 mg daily,Plavix 75 mg daily,Lasix 40 mg TID Continue current medications Continue current treatment TSH 16- will increase Synthroid to 75 mcg daily Will follow up Plan and treatment discussed with Dr. Camarillo
--- NOTE | 2018-03-23 12:29 | PN ---
DATE: 03/23/2018 SUBJECTIVE: 78-year-old male, seen at bedside with Dr. Porter present for continued evaluation and management of bilateral lower extremity ulcerations. The patient states that he is feeling better with each passing day and now we are contemplating whether he will be discharged home, to TCU or to a outside subacute facility. This will depends upon his insurance coverage. The patient's vital signs revealed temperature of 97.9, pulse rate of 68, blood pressure 142/72, respiratory rate of 20. Right leg culture reveals Acinetobacter growth. OBJECTIVE: Nonpalpable pedal pulses noted bilaterally. There is noted to be +2 nonpitting lower extremity edema noted bilaterally, right greater than left. There is a full-thickness ulceration located on the right anterior and medial lower leg that measures approximately 2.2 x 2.2 x 0.2 cm. Base of the wound is primarily a mixture of fibrotic and granular tissue. There is no probing to bone. There is no purulence. There is no underlying abscess formation or sinus tract formation. Right plantar heel presents with a superficial blister with underlying hematoma formation and necrotic tissue with some gangrenous tissue dispersed throughout. There is no drainage. There is no purulence. There is no underlying abscess formation. However, the tissue base of the wound remains nonviable at this point. Left posterior heel exhibits a deep tissue injury stage I pressure ulceration with no open lesions noted or drainage noted. Protective sensation remains grossly diminished. ASSESSMENT: A 78-year-old male with painful arterial ulceration to the right lower leg secondary to severe peripheral arterial disease, resolving cellulitis, right plantar heel ulceration with nonviable tissue base, stage I pressure ulceration to left posterior heel. PLAN: The patient was seen and evaluated with Dr. Cezar Porter. We are waiting placement in TCU, discharge home or at a subacute facility. The patient was told that he will need to follow up at the wound center weekly for his wounds once discharged and if he is discharged home, we will attempt to have visiting nurse services come to his house 2-3 times a week, but this depends on his insurance coverage. Today, we cleansed all wounds with normal sterile saline. We applied Lotrisone cream Xeroform, ABD, dry sterile dressing to the right leg and Santyl and Optifoam to the right heel ulceration as well as Optifoam to the left heel. We will continue with IV antibiotics as per Infectious Disease. He was told at length today that he needs to offload his heels at all times in an effort to all the wounds to heal and granulate in. The patient stated that he will obey all doctors' orders. The patient will be seen and followed while in-house daily. Liang Reyes DPM
--- NOTE | 2018-03-23 15:14 | PN ---
DATE: 03/23/2018 SUBJECTIVE: The patient in bed, in no acute distress. Nontoxic. PHYSICAL EXAMINATION VITAL SIGNS: Temperature is 98, blood pressure is 120/70, respiratory rate of 16. HEENT: Unremarkable. NECK: Supple. LUNGS: Have decreased breath sounds. HEART: Normal S1 and S2. ABDOMEN: Soft. EXTREMITIES: Examination of leg is much improved. LABORATORY EXAMINATION: Reveals a white count of 6.6, hemoglobin of 10. Chemistry reveals a BUN of 14, creatinine of 1.1 and microbiology noted with Acinetobacter baumannii. Review of orders reveals the patient to be on Cefepime. ASSESSMENT AND PLAN: A 78-year-old male with right leg skin and skin structure infection with Acinetobacter baumannii with peripheral vascular disease, status post angioplasty and stenting, postprocedure day #9, history of peptic ulcer disease, hyperthyroidism, gout, peripheral arterial disease, day #7 of cefepime with improvement. Case discussed with Dr. Pickett. The patient's creatinine is 1.1 now and urine eosinophils reported to be negative. We will follow with you. Satya Leslie MD
--- NOTE | 2018-03-23 20:44 | PN ---
DATE: 03/23/2018 DAILY PROGRESS NOTE SUBJECTIVE: The patient was seen this Sunday morning in room 572, bed 2 with no visitors present. He was sitting on bed, comfortable, awake and alert. During our exam, he was visited by podiatry group. Dressings were changed, the wounds were examined. I also had chance to speak with Infectious Disease salesforce consultant regarding course of antibiotics and then talked to the patient about discharge plan and options. Apparently, with his [employer] complete insurance, he is not a candidate for transfer to our transitional care unit. He was given a list of subacute rehab facilities out of the area, which seems to frustrate the patient, because none of the participating facilities are near his home and family. Realizing this, he says he almost likely not go to subacute rehab, rather go home. So, I spoke to his physical therapist today, asked to engage the patient as best as possible today and tomorrow; so, we may be looking discharge to home on as early as Sunday. The other big concern of course is the chest pain the patient had the other day. He was seen by Cardiology. Troponins were negative and he is scheduled for a stress test on Sunday. Do not forget, he had an echocardiogram at [facility] a few days prior to this admission and that was scheduled for stress test, but when he showed up the test, his legs were weeping and edematous, so we stress was canceled. In view of the chest pain the other day and the already elevated clinical suspicion for coronary artery disease, we will proceed with stress test on Sunday and hopefully discharge to home soon thereafter. Case was also discussed with Dr. Camarillo this afternoon who will be performing the stress test. Cezar Porter MD
[2018-03-23] MEDS: Oxycodone/Acetaminophen 10/325 mg Tab PO PRN (23:07)
[2018-03-24] MEDS: Levothyroxine 75 MCG TAB PO SCH (06:07)
--- NOTE | 2018-03-24 07:35 | CP.PCM.PN ---
Subjective - Date & Time of Evaluation Date of Evaluation: 03/24/18 Time of Evaluation: 07:10 - Subjective Subjective: Lying in bed,sleeping,easily awaken,no distress, denies chest pain Reason for consultation and follow up: cardiac evaluation, chest pain, severe peripheral arterial disease, cellulitis Seen and examined by me and Dr. Camarillo Objective - Vital Signs/Intake and Output Vital Signs (last 24 hours): Temp Pulse Resp BP Pulse Ox 98.8 F 71 18 125/70 98 03/23/18 22:55 03/23/18 22:55 03/23/18 22:55 03/23/18 22:55 03/23/18 22:55 Intake and Output: 03/24/18 03/24/18 06:59 18:59 Intake Total 780 Output Total 600 Balance 180 - Medications Medications: Current Medications Acetaminophen (Tylenol 325mg Tab) 650 mg PO Q4H PRN PRN Reason: Pain, Mild (1-3) Last Admin: 03/15/18 17:13 Dose: 650 mg Aspirin (Ecotrin) 81 mg PO DAILY [facility] Last Admin: 03/23/18 09:48 Dose: 81 mg Betamethasone/Clotrimazole (Lotrisone) 0 ml TOP BID [facility] Last Admin: 03/23/18 17:18 Dose: Not Given Clopidogrel Bisulfate (Plavix) 75 mg PO DAILY [facility] Last Admin: 03/23/18 09:48 Dose: 75 mg Collagenase (Santyl) 0 gm TOP DAILY [facility] Last Admin: 03/23/18 09:51 Dose: 1 applic Furosemide (Lasix) 40 mg PO TID [facility] Last Admin: 03/23/18 17:17 Dose: 40 mg Cefepime HCl (Maxipime 1gm) 1 gm in 100 mls @ 100 mls/hr IVPB Q12 [facility] PRN Reason: Protocol Stop: 03/30/18 10:01 Last Admin: 03/23/18 21:16 Dose: 100 mls/hr Levothyroxine Sodium (Synthroid) 75 mcg PO 0600 [facility] Last Admin: 03/24/18 06:07 Dose: 75 mcg Magnesium Hydroxide (Milk Of Magnesia) 30 ml PO DAILY PRN PRN Reason: Constipation Last Admin: 03/20/18 09:30 Dose: 30 ml Morphine Sulfate (Morphine) 5 mg IVP Q6H PRN PRN Reason: Pain, severe (8-10) Last Admin: 03/22/18 16:35 Dose: 5 mg Mupirocin (Bactroban Ointment) 0 gm TOP BID [facility] Last Admin: 03/23/18 17:17 Dose: Not Given Ondansetron HCl (Zofran Inj) 4 mg IVP ONCE PRN PRN Reason: Nausea/Vomiting Oxycodone/Acetaminophen (Percocet 10/325 Mg Tab) 1 tab PO Q6H PRN PRN Reason: Pain, moderate (4-7) Last Admin: 03/23/18 23:07 Dose: 1 tab Potassium Chloride (Klor-Con 10) 10 meq PO BRK [facility] Last Admin: 03/23/18 09:48 Dose: 10 meq Tamsulosin HCl (Flomax) 0.4 mg PO DAILY [facility] Last Admin: 03/23/18 09:48 Dose: 0.4 mg - Labs Labs: 03/23/18 06:30 03/23/18 06:30 PT 15.2 SECONDS (9.4-12.5) H 03/15/18 08:10 INR 1.31 (0.93-1.08) H 03/15/18 08:10 - Constitutional Appears: No Acute Distress - Head Exam Head Exam: NORMOCEPHALIC - ENT Exam ENT Exam: Mucous Membranes Moist - Respiratory Exam Respiratory Exam: Clear to Ausculation Bilateral, NORMAL BREATHING PATTERN - Cardiovascular Exam Cardiovascular Exam: +S1, +S2 - GI/Abdominal Exam GI & Abdominal Exam: Soft, Normal Bowel Sounds - Extremities Exam Additional comments: 2-3+ pedal edema - Neurological Exam Neurological Exam: Alert, Awake, Oriented x3 - Psychiatric Exam Psychiatric exam: Normal Affect, Normal Mood - Skin Skin Exam: Normal Color, Warm Assessment and Plan - Assessment and Plan (Free Text) Assessment: A 78 year old male came in to the ER due to cellulitis. History of severe PAD, ex smoker, abnormal JONAH test, cellulitis, common iliac PTCA with stent, BPH, hypothyroidism Plan: For ECHO and Stress test Stable heart rate and blood pressure Troponin level normal Denies chest pain Being followed up by Vascular On ASA 81 mg daily,Plavix 75 mg daily,Lasix 40 mg TID Continue current medications Continue current treatment TSH 16- will increase Synthroid to 75 mcg daily Will follow up Plan and treatment discussed with Dr. Camarillo Plan: Stable heart rate and blood pressure Cardiac status stable On ASA 81 mg daily,Plavix 75 mg daily,Lasix 40 mg TID Continue current medications Continue current treatment For ECHO and Stress test Will follow up Plan and treatment discussed with Dr. Camarillo
[2018-03-24] MEDS: Clotrimazole/Betamethasone Lotion(30 ml) TOP SCH (10:00)
[2018-03-24] MEDS: Potassium Chloride 10 mEq ER Tab PO SCH (10:15)
[2018-03-24] MEDS: Collagenase 250 Units/gm Ointment(30 gm) TOP SCH (10:16)
[2018-03-24] MEDS: Oxycodone/Acetaminophen 10/325 mg Tab PO PRN ×3 (10:16→21:50)
--- NOTE | 2018-03-24 11:13 | PN ---
DATE: 03/24/2018 SUBJECTIVE: The patient is in bed, in no acute distress, nontoxic. PHYSICAL EXAMINATION: VITAL SIGNS: Temperature is 98, blood pressure is 140/60, respiratory rate of 18, heart rate of 72. HEENT: Examination of HEENT is unremarkable. NECK: Supple. LUNGS: Have decreased breath sounds. HEART: Normal S1, S2. ABDOMEN: Soft. LABORATORY DATA: Laboratory examination reveals a white count of 6.6, hemoglobin of 10, platelets of 291. BUN of 14, creatinine of 1.1. Urinalysis is noted. Microbiology reveals Acinetobacter baumannii. Examination of the leg reveals that the patient's leg is much improved. ASSESSMENT AND PLAN: A 78-year-old male who was seen earlier today in 571, bed 2 with right skin and skin structure infection with Acinetobacter baumannii of the right leg, which is greatly improved and the patient with peripheral vascular disease and status post angioplasty and stenting, postprocedure day #10. History of peptic ulcer disease and hyperthyroidism, gout, peripheral arterial disease. Today is day #8 of cefepime and review of orders reveals the patient is on cefepime. The leg is greatly improved. We will discontinue the antibiotic cefepime within the next 24-48 hours. No further antibiotics after that needed. Satya Leslie MD
--- NOTE | 2018-03-24 12:17 | CP.PCM.PN ---
Subjective - Date & Time of Evaluation Date of Evaluation: 03/24/18 Time of Evaluation: 12:13 - Subjective Subjective: 78 y/o male seen and evaluated at bedside this morning for right anterior leg ulceration, right heel blister and left heel fissure. Patient is AAO x 3 and NAD at time of visit. States that he is still having some pain to his right leg wound but it is controlled. Denies any pain to either heel. Denies any acute overnight events. States that he has been walking with PT. Denies any recent N/V /F/C/CP/SOB/D/posterior calf pain when squeezed. Objective - Vital Signs/Intake and Output Vital Signs (last 24 hours): Temp Pulse Resp BP Pulse Ox 98.4 F 65 20 145/69 98 03/24/18 07:54 03/24/18 07:54 03/24/18 07:54 03/24/18 10:16 03/24/18 07:54 Intake and Output: 03/24/18 03/24/18 06:59 18:59 Intake Total 780 Output Total 600 Balance 180 - Medications Medications: Current Medications Acetaminophen (Tylenol 325mg Tab) 650 mg PO Q4H PRN PRN Reason: Pain, Mild (1-3) Last Admin: 03/15/18 17:13 Dose: 650 mg Aspirin (Ecotrin) 81 mg PO DAILY [facility] Last Admin: 03/24/18 10:15 Dose: 81 mg Betamethasone/Clotrimazole (Lotrisone) 0 ml TOP BID [facility] Last Admin: 03/23/18 17:18 Dose: Not Given Clopidogrel Bisulfate (Plavix) 75 mg PO DAILY [facility] Last Admin: 03/24/18 10:15 Dose: 75 mg Collagenase (Santyl) 0 gm TOP DAILY [facility] Last Admin: 03/24/18 10:16 Dose: 1 applic Furosemide (Lasix) 40 mg PO TID [facility] Last Admin: 03/24/18 10:16 Dose: 40 mg Cefepime HCl (Maxipime 1gm) 1 gm in 100 mls @ 100 mls/hr IVPB Q12 [facility] PRN Reason: Protocol Stop: 03/30/18 10:01 Last Admin: 03/23/18 21:16 Dose: 100 mls/hr Levothyroxine Sodium (Synthroid) 75 mcg PO 0600 [facility] Last Admin: 03/24/18 06:07 Dose: 75 mcg Magnesium Hydroxide (Milk Of Magnesia) 30 ml PO DAILY PRN PRN Reason: Constipation Last Admin: 03/20/18 09:30 Dose: 30 ml Morphine Sulfate (Morphine) 5 mg IVP Q6H PRN PRN Reason: Pain, severe (8-10) Last Admin: 03/22/18 16:35 Dose: 5 mg Mupirocin (Bactroban Ointment) 0 gm TOP BID [facility] Last Admin: 03/24/18 10:15 Dose: 1 applic Ondansetron HCl (Zofran Inj) 4 mg IVP ONCE PRN PRN Reason: Nausea/Vomiting Oxycodone/Acetaminophen (Percocet 10/325 Mg Tab) 1 tab PO Q6H PRN PRN Reason: Pain, moderate (4-7) Last Admin: 03/24/18 10:16 Dose: 1 tab Potassium Chloride (Klor-Con 10) 10 meq PO BRK [facility] Last Admin: 03/24/18 10:15 Dose: 10 meq Tamsulosin HCl (Flomax) 0.4 mg PO DAILY [facility] Last Admin: 03/24/18 10:16 Dose: 0.4 mg - Labs Labs: 03/23/18 06:30 03/23/18 06:30 PT 15.2 SECONDS (9.4-12.5) H 03/15/18 08:10 INR 1.31 (0.93-1.08) H 03/15/18 08:10 - Constitutional Appears: Well, Non-toxic, No Acute Distress - Head Exam Head Exam: ATRAUMATIC, NORMOCEPHALIC - Respiratory Exam Respiratory Exam: NORMAL BREATHING PATTERN. absent: Respiratory Distress - Extremities Exam Additional comments: Multipodus boots noted to be intact b/l VASC: DP/PT pulses are non-palpable B/L. CFT < 3 sec to all digits. Temp gradient warm to warm from proximal to distal. Non-pitting edema noted diffusely , R>L. DERM: Right anteromedial lower leg ulceration measuring approx 2.5 cm x 2.5 cm x 0.2 cm noted. Wound base is mainly fibrotic, no probe to bone, no tunneling, no undermining, no malodor. Significant ino wound erythema noted >2cm in margins. Right plantar lateral heel exhibits superficial blister with mild underlying hematoma formation and necrotic tissue - improving. Left posterior heel exhibits stage 1 pressure ulceration measuring roughly 2 cm x 0.3 cm x 0.1 cm with no clinical signs of infection and no probe to bone NEURO: Protective sensation mildly diminished b/l ORTHO: Moderate tenderness on palpation of the distal right anterior leg at wound site. MMT: 5/5 in all four directions at the ankle and subtalar joint - Neurological Exam Neurological Exam: Alert, Awake, Oriented x3 - Psychiatric Exam Psychiatric exam: Normal Affect, Normal Mood Assessment and Plan - Assessment and Plan (Free Text) Assessment: 78 y/o male seen and evaluated at bedside this morning for right anterior leg ulceration, right heel blister and left heel fissure Plan: Patient seen and evaluated Plan discussed with attending Charts, labs, vitals reviewed Afebrile, absent leukocytosis Wound cx final: Acinetobacter Baumannii Continue IV abx per ID Anterior leg wound dressed with xeroform, DSD B/l heels dressed with optifoam No plan for surgical intervention at this time Patient to f/u in wound care center upon discharge Podiatry will continue to follow while patient in house
[2018-03-24] MEDS: Cefepime 1gm in NS 100ml 1 GM/100 ML BAG IVPB SCH ×2 (13:50→21:18)
--- NOTE | 2018-03-24 21:44 | PN ---
DATE: 03/24/2018 SUBJECTIVE: The patient was seen this Sunday morning in room 571, bed 2. I was joined by Dr. Satya Leslie at the bedside and examining the leg, and spoke with Dr. Camarillo later in the day about patient's ongoing workup. Patient is awake, alert, clear. and in good spirits, actually feeling quite well now. The leg pain has subsided quite a bit. Fevers, erythema, heat and discomfort from the leg has improved dramatically and subjectively as well. PHYSICAL EXAMINATION: Swelling of the leg has much reduced. Erythema has improved. The patient is doing well. He has had no further episode of chest pain, shortness of breath, palpitations, etc. He is looking forward to discharge to home tomorrow after the thallium stress. I spoke with Dr. Camarillo because of the patient's multiple comorbidities, peripheral vascular disease, history of tobacco use. Recent echo was unremarkable. So stress test is ordered for tomorrow in view of the chest pain that he had on Sunday night. He will finish with his course of antibiotics soon, and will be ready for discharge to home as early as tomorrow afternoon and after the stress test. Patient understands and is in agreement, and looking forward to outpatient followup. He will not need any further additional p.o. antibiotics, having completed his course of treatment here. Cezar Porter MD
[2018-03-25] MEDS: Levothyroxine 75 MCG TAB PO SCH (05:44)
[2018-03-25 07:17] LABS: BASO # 0.02 K/mm3 (0.0-2.0); BASO % 0.3 % (0.0-3.0); EOS # 0.3 (0.0-0.7); EOS % 5.5 % (1.5-5.0); GRAN # 3.45 (1.4-6.5); GRAN % 57.7 % (50.0-68.0); HEMOGLOBIN 10.2 g/dL (14.0-18.0); LYMPH # 1.7 (1.2-3.4); LYMPH % 28.7 % (22.0-35.0); MEAN CELL VOLUME 86.6 fl (80.0-105.0); MEAN CORPUSCULAR HEMOGLOBIN 27.9 pg (25.0-35.0); MEAN CORPUSCULAR HGB CONC 32.2 g/dl (31.0-37.0); MEAN PLATELET VOLUME 9.2 fl (7.0-11.0); MONO # 0.5 (0.1-0.6); MONO % 7.8 % (1.0-6.0); RBC 3.66 10^6/uL (3.5-6.1); RED CELL DISTRIBUTION WIDTH 14.8 % (11.5-14.5)
[2018-03-25 07:22] LABS: BLOOD UREA NITROGEN 14 mg/dL (7-21); CALCIUM 8.7 mg/dL (8.4-10.5); GFR AFRICAN-AMERICAN > 60; GFR NON-AFRICAN AMERICAN 58
--- NOTE | 2018-03-25 08:15 | CP.PCM.PN ---
Subjective - Date & Time of Evaluation Date of Evaluation: 03/25/18 Time of Evaluation: 06:55 - Subjective Subjective: Easily awaken, Lying in bed, no distress, denies chest pain Reason for consultation and follow up: cardiac evaluation, chest pain, severe peripheral arterial disease, cellulitis Seen and examined by me and Dr. Vasquez Objective - Vital Signs/Intake and Output Vital Signs (last 24 hours): Temp Pulse Resp BP Pulse Ox 98.4 F 65 18 143/72 97 03/25/18 06:00 03/25/18 06:00 03/25/18 06:00 03/25/18 06:00 03/25/18 06:00 Intake and Output: 03/25/18 03/25/18 06:59 18:59 Intake Total 780 Output Total 600 Balance 180 - Medications Medications: Current Medications Acetaminophen (Tylenol 325mg Tab) 650 mg PO Q4H PRN PRN Reason: Pain, Mild (1-3) Last Admin: 03/24/18 19:34 Dose: 650 mg Aspirin (Ecotrin) 81 mg PO DAILY [facility] Last Admin: 03/24/18 10:15 Dose: 81 mg Betamethasone/Clotrimazole (Lotrisone) 0 ml TOP BID [facility] Last Admin: 03/24/18 10:00 Dose: 1 applic Clopidogrel Bisulfate (Plavix) 75 mg PO DAILY [facility] Last Admin: 03/24/18 10:15 Dose: 75 mg Collagenase (Santyl) 0 gm TOP DAILY [facility] Last Admin: 03/24/18 10:16 Dose: 1 applic Furosemide (Lasix) 40 mg PO TID [facility] Last Admin: 03/24/18 17:32 Dose: 40 mg Cefepime HCl (Maxipime 1gm) 1 gm in 100 mls @ 100 mls/hr IVPB Q12 [facility] PRN Reason: Protocol Stop: 03/30/18 10:01 Last Admin: 03/24/18 21:18 Dose: 100 mls/hr Levothyroxine Sodium (Synthroid) 75 mcg PO 0600 [facility] Last Admin: 03/25/18 05:44 Dose: 75 mcg Magnesium Hydroxide (Milk Of Magnesia) 30 ml PO DAILY PRN PRN Reason: Constipation Last Admin: 03/20/18 09:30 Dose: 30 ml Mupirocin (Bactroban Ointment) 0 gm TOP BID [facility] Last Admin: 03/24/18 10:15 Dose: 1 applic Ondansetron HCl (Zofran Inj) 4 mg IVP ONCE PRN PRN Reason: Nausea/Vomiting Oxycodone/Acetaminophen (Percocet 10/325 Mg Tab) 1 tab PO Q6H PRN PRN Reason: Pain, moderate (4-7) Last Admin: 03/24/18 21:50 Dose: 1 tab Potassium Chloride (Klor-Con 10) 10 meq PO BRK [facility] Last Admin: 03/24/18 10:15 Dose: 10 meq Tamsulosin HCl (Flomax) 0.4 mg PO DAILY [facility] Last Admin: 03/24/18 10:16 Dose: 0.4 mg - Labs Labs: 03/25/18 06:45 03/25/18 06:45 PT 15.2 SECONDS (9.4-12.5) H 03/15/18 08:10 INR 1.31 (0.93-1.08) H 03/15/18 08:10 - Constitutional Appears: No Acute Distress - ENT Exam ENT Exam: Mucous Membranes Moist - Respiratory Exam Respiratory Exam: Clear to Ausculation Bilateral, NORMAL BREATHING PATTERN - Cardiovascular Exam Cardiovascular Exam: +S1, +S2 - GI/Abdominal Exam GI & Abdominal Exam: Soft, Normal Bowel Sounds - Extremities Exam Extremities Exam: Normal Capillary Refill Additional comments: 2+ edema - Neurological Exam Neurological Exam: Alert, Awake, Oriented x3 - Psychiatric Exam Psychiatric exam: Normal Affect, Normal Mood - Skin Skin Exam: Dry, Normal Color, Warm Assessment and Plan - Assessment and Plan (Free Text) Assessment: A 78 year old male came in to the ER due to cellulitis. History of severe PAD, ex smoker, abnormal JONAH test, cellulitis, common iliac PTCA with stent, BPH, hypothyroidism Plan: For ECHO and Stress test today Stable heart rate and blood pressure Cardiac status stable On ASA 81 mg daily,Plavix 75 mg daily,Lasix 40 mg TID Continue current medications Continue current treatment Will follow up Plan and treatment discussed with Dr. Vasquez
[2018-03-25] MEDS ORDERED: Aminophylline 25 mg/ml Inj ONE (11:12)
[2018-03-25] MEDS: Potassium Chloride 10 mEq ER Tab PO SCH (14:02)
[2018-03-25] MEDS: Cefepime 1gm in NS 100ml 1 GM/100 ML BAG IVPB SCH ×2 (14:02→21:56)
[2018-03-25] MEDS: Collagenase 250 Units/gm Ointment(30 gm) TOP SCH (14:03)
[2018-03-25] MEDS: Clotrimazole/Betamethasone Lotion(30 ml) TOP SCH (14:03)
--- NOTE | 2018-03-25 16:59 | CP.PCM.PN ---
Subjective - Date & Time of Evaluation Date of Evaluation: 03/25/18 Time of Evaluation: 16:56 - Subjective Subjective: 78 y/o male seen and evaluated at bedside this morning for right anterior leg ulceration, right heel blister and left heel fissure. Patient is AAO x 3 and NAD at time of visit. States that his pain has significantly decreased but he still has some minor pain in the right ankle wound area as well as the right heel. Denies any pain to either heel. Denies any acute overnight events. States that he has been walking more and more each day with his forefoot offloading shoe. Denies any recent N/V/F/C/CP/SOB/D/posterior calf pain when squeezed. Objective - Vital Signs/Intake and Output Vital Signs (last 24 hours): Temp Pulse Resp BP Pulse Ox 98.8 F 81 20 143/72 99 03/25/18 14:00 03/25/18 14:00 03/25/18 14:00 03/25/18 14:02 03/25/18 14:00 Intake and Output: 03/25/18 03/25/18 06:59 18:59 Intake Total 780 240 Output Total 600 Balance 180 240 - Medications Medications: Current Medications Acetaminophen (Tylenol 325mg Tab) 650 mg PO Q4H PRN PRN Reason: Pain, Mild (1-3) Last Admin: 03/24/18 19:34 Dose: 650 mg Aspirin (Ecotrin) 81 mg PO DAILY [facility] Last Admin: 03/25/18 14:02 Dose: 81 mg Betamethasone/Clotrimazole (Lotrisone) 0 ml TOP BID [facility] Last Admin: 03/25/18 14:03 Dose: 1 applic Clopidogrel Bisulfate (Plavix) 75 mg PO DAILY [facility] Last Admin: 03/25/18 14:02 Dose: 75 mg Collagenase (Santyl) 0 gm TOP DAILY [facility] Last Admin: 03/25/18 14:03 Dose: 1 applic Furosemide (Lasix) 40 mg PO TID [facility] Last Admin: 03/25/18 14:02 Dose: 40 mg Cefepime HCl (Maxipime 1gm) 1 gm in 100 mls @ 100 mls/hr IVPB Q12 [facility] PRN Reason: Protocol Stop: 03/30/18 10:01 Last Admin: 03/25/18 14:02 Dose: 100 mls/hr Levothyroxine Sodium (Synthroid) 75 mcg PO 0600 [facility] Last Admin: 03/25/18 05:44 Dose: 75 mcg Magnesium Hydroxide (Milk Of Magnesia) 30 ml PO DAILY PRN PRN Reason: Constipation Last Admin: 03/20/18 09:30 Dose: 30 ml Mupirocin (Bactroban Ointment) 0 gm TOP BID [facility] Last Admin: 03/24/18 10:15 Dose: 1 applic Ondansetron HCl (Zofran Inj) 4 mg IVP ONCE PRN PRN Reason: Nausea/Vomiting Oxycodone/Acetaminophen (Percocet 10/325 Mg Tab) 1 tab PO Q6H PRN PRN Reason: Pain, moderate (4-7) Last Admin: 03/24/18 21:50 Dose: 1 tab Potassium Chloride (Klor-Con 10) 10 meq PO BRK [facility] Last Admin: 03/25/18 14:02 Dose: 10 meq Tamsulosin HCl (Flomax) 0.4 mg PO DAILY [facility] Last Admin: 03/25/18 14:02 Dose: 0.4 mg - Labs Labs: 03/25/18 06:45 03/25/18 06:45 PT 15.2 SECONDS (9.4-12.5) H 03/15/18 08:10 INR 1.31 (0.93-1.08) H 03/15/18 08:10 - Constitutional Appears: Well, Non-toxic, No Acute Distress - Extremities Exam Additional comments: Multipodus boots noted to be intact B/L VASC: DP/PT pulses are non-palpable B/L. CFT < 3 sec to all digits. Temp gradient warm to warm from proximal to distal. Non-pitting edema noted diffusely , R>L. DERM: Right anteromedial lower leg ulceration measuring approx 2.5 cm x 2.5 cm x 0.2 cm noted. Wound base is mainly fibrotic, no probe to bone, no tunneling, no undermining, no malodor. Mild-moderate ino wound erythema noted >2cm in margins, resolving greatly since admission Right plantar lateral heel exhibits non stageable ulceration with thickened necrotic tissue roof. Left posterior heel exhibits stage 1 pressure ulceration with mild erythema, with no clinical signs of infection and no probe to bone NEURO: Protective sensation mildly diminished B/L ORTHO: Moderate tenderness on palpation of the distal right anterior leg at wound site. MMT: 5/5 in all four directions at the ankle and subtalar joint - Neurological Exam Neurological Exam: Alert, Awake, Oriented x3 - Psychiatric Exam Psychiatric exam: Normal Affect, Normal Mood Assessment and Plan - Assessment and Plan (Free Text) Assessment: 78 y/o male with right anterior leg ulceration, right heel nonstageable ulceration and left stage 1 pressure ulceration secondary to PAD Plan: Patient seen and evaluated with attending Dr. cM Charts, labs, vitals reviewed - afebrile, WBC 6.0 Wound cx final: Acinetobacter Baumannii Continue IV abx per ID Anterior leg wound dressed with DSD R heel ulceration dressed with Santyl and Optifoam No plan for surgical intervention at this time Pt stable from podiatry standpoint Patient to f/u in wound care center upon discharge Podiatry will continue to follow while patient in house
--- NOTE | 2018-03-25 20:00 | CP.PCM.PN ---
Subjective - Date & Time of Evaluation Date of Evaluation: 03/25/18 Time of Evaluation: 15:50 - Subjective Subjective: Improving pain in the right foot, no fevers, no diarrhea. Objective - Vital Signs/Intake and Output Vital Signs (last 24 hours): Temp Pulse Resp BP Pulse Ox 98.4 F 65 18 143/72 97 03/25/18 06:00 03/25/18 06:00 03/25/18 06:00 03/25/18 06:00 03/25/18 06:00 Intake and Output: 03/25/18 03/25/18 06:59 18:59 Intake Total 780 Output Total 600 Balance 180 - Medications Medications: Current Medications Acetaminophen (Tylenol 325mg Tab) 650 mg PO Q4H PRN PRN Reason: Pain, Mild (1-3) Last Admin: 03/24/18 19:34 Dose: 650 mg Aspirin (Ecotrin) 81 mg PO DAILY [facility] Last Admin: 03/24/18 10:15 Dose: 81 mg Betamethasone/Clotrimazole (Lotrisone) 0 ml TOP BID [facility] Last Admin: 03/24/18 10:00 Dose: 1 applic Clopidogrel Bisulfate (Plavix) 75 mg PO DAILY [facility] Last Admin: 03/24/18 10:15 Dose: 75 mg Collagenase (Santyl) 0 gm TOP DAILY [facility] Last Admin: 03/24/18 10:16 Dose: 1 applic Furosemide (Lasix) 40 mg PO TID [facility] Last Admin: 03/24/18 17:32 Dose: 40 mg Cefepime HCl (Maxipime 1gm) 1 gm in 100 mls @ 100 mls/hr IVPB Q12 [facility] PRN Reason: Protocol Stop: 03/30/18 10:01 Last Admin: 03/24/18 21:18 Dose: 100 mls/hr Levothyroxine Sodium (Synthroid) 75 mcg PO 0600 [facility] Last Admin: 03/25/18 05:44 Dose: 75 mcg Magnesium Hydroxide (Milk Of Magnesia) 30 ml PO DAILY PRN PRN Reason: Constipation Last Admin: 03/20/18 09:30 Dose: 30 ml Mupirocin (Bactroban Ointment) 0 gm TOP BID [facility] Last Admin: 03/24/18 10:15 Dose: 1 applic Ondansetron HCl (Zofran Inj) 4 mg IVP ONCE PRN PRN Reason: Nausea/Vomiting Oxycodone/Acetaminophen (Percocet 10/325 Mg Tab) 1 tab PO Q6H PRN PRN Reason: Pain, moderate (4-7) Last Admin: 03/24/18 21:50 Dose: 1 tab Potassium Chloride (Klor-Con 10) 10 meq PO BRK [facility] Last Admin: 03/24/18 10:15 Dose: 10 meq Tamsulosin HCl (Flomax) 0.4 mg PO DAILY [facility] Last Admin: 03/24/18 10:16 Dose: 0.4 mg - Labs Labs: 03/25/18 06:45 03/25/18 06:45 PT 15.2 SECONDS (9.4-12.5) H 03/15/18 08:10 INR 1.31 (0.93-1.08) H 03/15/18 08:10 - Constitutional Appears: Chronically Ill - Head Exam Head Exam: NORMAL INSPECTION - Respiratory Exam Respiratory Exam: Decreased Breath Sounds - Cardiovascular Exam Cardiovascular Exam: +S1, +S2 - GI/Abdominal Exam GI & Abdominal Exam: Soft. absent: Tenderness - Extremities Exam Additional comments: right foot with dressings in place Assessment and Plan - Assessment and Plan (Free Text) Plan: Assessment consider right leg skin and skin structure infection associated with severe peripheral vascular disease S/P angioplasty and stenting POD #11, growing Acinetobacter peptic ulcer disease history of hyperthyroidism gout severe peripheral arterial disease S/P left sided stenting Plan continue Cefepime day 9 - should be able to d/c in the next 24 hours
--- NOTE | 2018-03-25 22:05 | CARD ---
APPROVED REPORT Protocol: LEXISCAN Test Type: Lexiscan Sestamibi Stress Test Attending Physician: Dr. Ginger Camarillo Referring Physician: Dr. Cezar Porter Test Indications: Chest Pain Medications: TYLENOL, ASPIRIN, LOTRISONE, MAXIPIME, PLAVIX, SANTYL, LASIX, LEVOTHYROXINE, MILK OF MAG, ZOFRAN, PERCOCET, POTASSIUM, FLOMAX Medical History: 78 YEAR OLD MALE WITH A H/O CHF, PVD, HYPOTHYROID, BPH AND BCAK PAIN Target HR: 141 bpm Resting ECG: RSR. Resting Heart Rate: 69 bpm Resting Blood Pressure: 140/70mmHg Submaximum (85%): 120 bpm PROCEDURE Pharmacologic stress testing was performed using 0.4mg per 5ml of regadenoson given intravenously over 7-10 seconds. POST EXERCISE Reason for Termination: Protocol completed Target HR: No Max HR: 67 bpm 62% of Maximum Predicted HR: 141 bpm Exercise duration: 00:31 min:sec, 0 Stage Exercise capacity: 1.0METs Max Blood Pressure: 140/70mmHg Blood Pressure response to exercise: normal resting BP - appropriate response Heart Rate response to exercise: appropriate Chest Pain: No, none Angina index: 0 Arrhythmia: No, none ST Change: No, none Deviation: 0 mm TEST SUMMARY [id number]. INFUSIONDOSE 100:[id number]/.0. [id number]. INTERPRETATION Stress EKG Conclusion: IV LEXISCAN NUCLEAR STRESS TEST NEGATIVE FOR CHEST PAIN AND NEGATIVE FOR ST-T CHANGES. NUCLEAR SCAN REPORT PENDING. Signed by Ginger Camarillo Electronically Approved: 03/25/2018 14:19:57 EXAM: Myocardial Perfusion REST/STRESS Stress Test Type: Pharmacologic Imaging Protocol Rest Spect myocardial perfusion imaging was performed in supine position 45 minutes following the injection of 10.3 mCi of Tc-99 Myoview. At peak stress, the patient was injected intravenously with 30.2mCi of Tc-99 tetrofosmin after an infusion time of 0 minutes and 10 seconds. Gated Stress Spect was performed 65 minutes after intravenous Tc-99 Myoview injection. The images were gated to evaluate regional wall motion and calculate ventricular ejection fraction.Images were reconstructed using backfilter projection method in short horizontal and verticle long axis. Spect slices were generated. LV Perfusion The quality of the study is good. The left ventricle is within normal limits in size. The right ventricle is unremarkable. The lung uptake is normal. The distribution of tracer reveals a moderate sized area of moderately to severely decreased perfusion involving most of the inferior and mid to basal inferolateral anderson on the stress study. The remainder of the LV myocardium is unremarkable. The rest myocardial perfusion study shows partial improvement of defects. Wall Motion Wall motion study shows inferlateral hypokinesis of the left ventricle. LVEF = 68 %. Conclusion 1. Abnormal SPECT myocardial perfusion study. 2. Partially reversible, inferior and inferolateral defects are suggestive of ischemia. 3. Normal overall LV function despite inferolateral hypokinesis.
[2018-03-26] MEDS: Levothyroxine 75 MCG TAB PO SCH (05:57)
--- NOTE | 2018-03-26 08:41 | PN ---
DATE: 03/25/2018 This is a addendum of initial progress note dictated by our nurse practitioner Annette Burgess. REASON FOR ADDENDUM: Echo reviewed from [facility], got faxed back, that shows ejection fraction of 65%, RVSP 32, mild mitral regurgitation dated 02/11/2018 at [facility]. So we will cancel echo and we will do a stress test today. Further recommendation after the stress test. We will follow with you. Thank you for providing us the opportunity in taking care of the patient, Satya Shelton. Ginger Vasquez MD [email or web address]
--- NOTE | 2018-03-26 08:56 | CP.PCM.PN ---
Subjective - Date & Time of Evaluation Date of Evaluation: 03/26/18 Time of Evaluation: 07:05 - Subjective Subjective: Lying in bed, awake, no distress, denies chest pain Reason for consultation and follow up: cardiac evaluation, chest pain, severe peripheral arterial disease, cellulitis Seen and examined by me and Dr. Vasquez Objective - Vital Signs/Intake and Output Vital Signs (last 24 hours): Temp Pulse Resp BP Pulse Ox 97.2 F L 70 20 111/56 L 96 03/26/18 08:18 03/26/18 08:18 03/26/18 08:18 03/26/18 08:18 03/26/18 08:18 Intake and Output: 03/26/18 03/26/18 06:59 18:59 Intake Total 800 Output Total 700 Balance 100 - Medications Medications: Current Medications Acetaminophen (Tylenol 325mg Tab) 650 mg PO Q4H PRN PRN Reason: Pain, Mild (1-3) Last Admin: 03/24/18 19:34 Dose: 650 mg Aspirin (Ecotrin) 81 mg PO DAILY [facility] Last Admin: 03/25/18 14:02 Dose: 81 mg Betamethasone/Clotrimazole (Lotrisone) 0 ml TOP BID [facility] Last Admin: 03/25/18 14:03 Dose: 1 applic Clopidogrel Bisulfate (Plavix) 75 mg PO DAILY [facility] Last Admin: 03/25/18 14:02 Dose: 75 mg Collagenase (Santyl) 0 gm TOP DAILY [facility] Last Admin: 03/25/18 14:03 Dose: 1 applic Furosemide (Lasix) 40 mg PO TID [facility] Last Admin: 03/25/18 18:27 Dose: 40 mg Cefepime HCl (Maxipime 1gm) 1 gm in 100 mls @ 100 mls/hr IVPB Q12 [facility] PRN Reason: Protocol Stop: 03/30/18 10:01 Last Admin: 03/25/18 21:56 Dose: 100 mls/hr Levothyroxine Sodium (Synthroid) 75 mcg PO 0600 [facility] Last Admin: 03/26/18 05:57 Dose: 75 mcg Magnesium Hydroxide (Milk Of Magnesia) 30 ml PO DAILY PRN PRN Reason: Constipation Last Admin: 03/20/18 09:30 Dose: 30 ml Mupirocin (Bactroban Ointment) 0 gm TOP BID [facility] Last Admin: 03/24/18 10:15 Dose: 1 applic Ondansetron HCl (Zofran Inj) 4 mg IVP ONCE PRN PRN Reason: Nausea/Vomiting Oxycodone/Acetaminophen (Percocet 10/325 Mg Tab) 1 tab PO Q6H PRN PRN Reason: Pain, moderate (4-7) Last Admin: 03/24/18 21:50 Dose: 1 tab Potassium Chloride (Klor-Con 10) 10 meq PO BRK [facility] Last Admin: 03/25/18 14:02 Dose: 10 meq Tamsulosin HCl (Flomax) 0.4 mg PO DAILY [facility] Last Admin: 03/25/18 14:02 Dose: 0.4 mg - Labs Labs: 03/25/18 06:45 03/25/18 06:45 PT 15.2 SECONDS (9.4-12.5) H 03/15/18 08:10 INR 1.31 (0.93-1.08) H 03/15/18 08:10 - Constitutional Appears: No Acute Distress - Head Exam Head Exam: NORMOCEPHALIC - ENT Exam ENT Exam: Mucous Membranes Moist - Respiratory Exam Respiratory Exam: Decreased Breath Sounds, NORMAL BREATHING PATTERN - Cardiovascular Exam Cardiovascular Exam: +S1, +S2 - GI/Abdominal Exam GI & Abdominal Exam: Soft, Normal Bowel Sounds - Extremities Exam Extremities Exam: Normal Capillary Refill Additional comments: edema 2+,cellulitis - Neurological Exam Neurological Exam: Alert, Awake, Oriented x3 - Psychiatric Exam Psychiatric exam: Normal Affect, Normal Mood - Skin Skin Exam: Intact, Normal Color, Warm Assessment and Plan - Assessment and Plan (Free Text) Assessment: A 78 year old male came in to the ER due to cellulitis. History of severe PAD, ex smoker, abnormal JONAH test, cellulitis, common iliac PTCA with stent, BPH, hypothyroidism Plan: Stress done yesterday Stress test abnormal, with ischemia For possible cardiac catheterization ,will discuss with patient and family Cardiac status stable On ASA 81 mg daily,Plavix 75 mg daily,Lasix 40 mg TID Continue current medications Continue current treatment Will follow up Plan and treatment discussed with Dr. Vasquez
[2018-03-26] MEDS: Magnesium Hydroxide Susp 30 ml UD PO PRN (09:18)
[2018-03-26] MEDS: Potassium Chloride 10 mEq ER Tab PO SCH (09:19)
[2018-03-26] MEDS: Cefepime 1gm in NS 100ml 1 GM/100 ML BAG IVPB SCH ×2 (09:37→21:36)
[2018-03-26] MEDS: Clotrimazole/Betamethasone Lotion(30 ml) TOP SCH ×2 (10:35→17:36)
[2018-03-26] MEDS: Collagenase 250 Units/gm Ointment(30 gm) TOP SCH (10:45)
--- NOTE | 2018-03-26 11:33 | PN ---
DATE: 03/25/2018 DAILY PROGRESS NOTE SUBJECTIVE: The patient is a 78-year-old male with a history of gout, congestive heart failure, BPH, coronary artery disease and hypothyroidism, who was admitted to [facility] with cellulitis of the right lower extremity. He underwent revascularization of the right lower extremity by Dr. Yasir Reed and did well. He was followed by Dr. Dixon as far as Infectious Disease and was treated with intravenous antibiotics for Acinetobacter cultures which grew from his leg wound. During the hospital stay, the patient improved. He did well. He did have an episode of chest pain. When seen today, he was in the stress lab undergoing stress testing with Dr. Camarillo. Dr. Camarillo stated that the first part of his test was negative and the patient will be able to be discharged to home and follow up with the remaining of the results as an outpatient. PHYSICAL EXAMINATION: GENERAL: The patient himself was awake, alert and oriented. VITAL SIGNS: He was afebrile. Blood pressure is 143/72, heart rate was 65. LUNGS: His lungs were clear. HEART: Regular. LABORATORY STUDIES: Reveal the white cell count to be 6, hemoglobin and hematocrit 10.2 and 31.7. Sodium was 140, potassium 4.2. Blood, urea, nitrogen is 14 and creatinine 1.2. So, the patient will be discharged to home later this afternoon and will be followed up as an outpatient. There was no further need for antibiotics for his cellulitis. FINAL DIAGNOSES: 1. Cellulitis of right lower extremity. 2. Chest pain. 3. History of congestive heart failure. 4. History of coronary artery disease. 5. Hypothyroidism. Goyo Proter MD
--- NOTE | 2018-03-26 14:50 | PN ---
DATE: 03/26/2018 REASON FOR DICTATION: Addendum to initial progress note dictated by our nurse practitioner, Annette Burgess. SUBJECTIVE: The patient had abnormal stress test. Discussed in length with the patient and discussed with the patient's sons, Wilner and Asher, reference of cardiac catheterization, both agreed. We will proceed for cardiac catheterization. I spoke to son, elder son is Wilner, telephone number [phone]. I will keep n.p.o. after the breakfast and cardiac catheterization possible at 03:30 tomorrow. Discussed risks, benefits, alternatives with the patient and the son. The patient is already on aspirin and Plavix. Repeat the blood workup in the morning. We will give a little hydration, start tomorrow at 07:00 o'clock. We will start 50 mL of normal saline tomorrow starting at 07:00 for preparation for cardiac catheterization. Ginger Vasquez MD
--- NOTE | 2018-03-26 15:44 | CP.PCM.PN ---
<JeremyLavonne - Last Filed: 03/26/18 15:41> Subjective - Date & Time of Evaluation Date of Evaluation: 03/26/18 Time of Evaluation: 15:41 - Subjective Subjective: 78 y/o male seen and evaluated at bedside with attending Dr. Reyes for right anterior leg ulceration now noted to be healed, right heel blister and left heel pressure ulceration. Patient is AAO x 3 and NAD at time of visit. Denies any further pain to where he had his right ankle/lower leg wound but admits to tenderness in the right heel. Denies any acute overnight events. States that he has been walking more and more each day. States he is going for cardiac catheterization tomorrow. Denies any recent N/V/F/C/CP/SOB/D/posterior calf pain when squeezed. Objective - Vital Signs/Intake and Output Vital Signs (last 24 hours): Temp Pulse Resp BP Pulse Ox 97.2 F L 70 20 126/67 96 03/26/18 08:18 03/26/18 08:18 03/26/18 08:18 03/26/18 15:17 03/26/18 08:18 Intake and Output: 03/26/18 03/26/18 06:59 18:59 Intake Total 800 480 Output Total 700 200 Balance 100 280 - Medications Medications: Current Medications Acetaminophen (Tylenol 325mg Tab) 650 mg PO Q4H PRN PRN Reason: Pain, Mild (1-3) Last Admin: 03/24/18 19:34 Dose: 650 mg Aspirin (Ecotrin) 81 mg PO DAILY [facility] Last Admin: 03/26/18 09:19 Dose: 81 mg Betamethasone/Clotrimazole (Lotrisone) 0 ml TOP BID [facility] Last Admin: 03/25/18 14:03 Dose: 1 applic Clopidogrel Bisulfate (Plavix) 75 mg PO DAILY [facility] Last Admin: 03/26/18 09:19 Dose: 75 mg Collagenase (Santyl) 0 gm TOP DAILY [facility] Last Admin: 03/25/18 14:03 Dose: 1 applic Furosemide (Lasix) 40 mg PO 0800,1400 [facility] Last Admin: 03/26/18 15:17 Dose: 40 mg Cefepime HCl (Maxipime 1gm) 1 gm in 100 mls @ 100 mls/hr IVPB Q12 [facility] PRN Reason: Protocol Stop: 03/30/18 10:01 Last Admin: 03/26/18 09:37 Dose: 100 mls/hr Sodium Chloride (Sodium Chloride 0.9%) 1,000 mls @ 50 mls/hr IV .Q20H [facility] Levothyroxine Sodium (Synthroid) 75 mcg PO 0600 [facility] Last Admin: 03/26/18 05:57 Dose: 75 mcg Magnesium Hydroxide (Milk Of Magnesia) 30 ml PO DAILY PRN PRN Reason: Constipation Last Admin: 03/20/18 09:30 Dose: 30 ml Mupirocin (Bactroban Ointment) 0 gm TOP BID [facility] Last Admin: 03/24/18 10:15 Dose: 1 applic Ondansetron HCl (Zofran Inj) 4 mg IVP ONCE PRN PRN Reason: Nausea/Vomiting Oxycodone/Acetaminophen (Percocet 10/325 Mg Tab) 1 tab PO Q6H PRN PRN Reason: Pain, moderate (4-7) Last Admin: 03/24/18 21:50 Dose: 1 tab Potassium Chloride (Klor-Con 10) 10 meq PO BRK [facility] Last Admin: 03/26/18 09:19 Dose: 10 meq Tamsulosin HCl (Flomax) 0.4 mg PO DAILY [facility] Last Admin: 03/26/18 09:18 Dose: 0.4 mg - Labs Labs: 03/25/18 06:45 03/25/18 06:45 PT 15.2 SECONDS (9.4-12.5) H 03/15/18 08:10 INR 1.31 (0.93-1.08) H 03/15/18 08:10 - Constitutional Appears: Well, Non-toxic, No Acute Distress - Extremities Exam Additional comments: Multipodus boots noted to be intact B/L VASC: DP/PT pulses are non-palpable B/L. CFT < 3 sec to all digits. Temp gradient warm to warm from proximal to distal. Non-pitting edema noted diffusely , R>L. DERM: Right anteromedial lower leg ulceration measuring approx 2.5 cm x 2.5 cm x 0.2 cm noted. Wound base is mainly fibrotic, no probe to bone, no tunneling, no undermining, no malodor. Mild-moderate ino wound erythema noted >2cm in margins, resolving greatly since admission Right plantar lateral heel exhibits non stageable ulceration with thickened necrotic tissue roof. Left posterior heel exhibits stage 1 pressure ulceration with mild erythema, with no clinical signs of infection and no probe to bone. Nails thickened elongated and dystrophic x10 NEURO: Protective sensation mildly diminished B/L ORTHO: Moderate tenderness on palpation of the distal right anterior leg at wound site. Tenderness to palpation of toenails x10. MMT: 5/5 in all four directions at the ankle and subtalar joint - Neurological Exam Neurological Exam: Alert, Awake, Oriented x3 - Psychiatric Exam Psychiatric exam: Normal Affect, Normal Mood Assessment and Plan - Assessment and Plan (Free Text) Assessment: 78 y/o male with right anterior leg ulceration, right heel nonstageable ulceration and left stage 1 pressure ulceration secondary to PAD Plan: Patient seen and evaluated with attending Dr. Reyes Charts, labs, vitals reviewed - afebrile, no leukocytosis Wound cx final: Acinetobacter Baumannii Continue IV abx per ID Anterior leg wound dressed with DSD R heel ulceration dressed with Santyl and Optifoam Aseptic debridement of toenails x 10 with sterile nippers Pt tolerated procedure without incident No plan for surgical intervention at this time Pt stable from podiatry standpoint Patient to f/u in wound care center upon discharge Podiatry will continue to follow while patient in house <Liang Reyes - Last Filed: 03/27/18 13:15> Objective - Vital Signs/Intake and Output Vital Signs (last 24 hours): Temp Pulse Resp BP Pulse Ox 97.5 F L 65 10 L 134/62 97 03/27/18 08:23 03/27/18 08:23 03/27/18 08:23 03/27/18 09:23 03/27/18 08:23 Intake and Output: 03/27/18 03/27/18 06:59 18:59 Intake Total 480 Output Total 150 Balance 330 - Medications Medications: Current Medications Acetaminophen (Tylenol 325mg Tab) 650 mg PO Q4H PRN PRN Reason: Pain, Mild (1-3) Last Admin: 03/24/18 19:34 Dose: 650 mg Aspirin (Ecotrin) 81 mg PO DAILY [facility] Last Admin: 03/27/18 09:24 Dose: 81 mg Betamethasone/Clotrimazole (Lotrisone) 0 ml TOP BID [facility] Last Admin: 03/27/18 12:28 Dose: 1 applic Clopidogrel Bisulfate (Plavix) 75 mg PO DAILY [facility] Last Admin: 03/27/18 09:23 Dose: 75 mg Collagenase (Santyl) 0 gm TOP DAILY [facility] Last Admin: 03/27/18 12:27 Dose: 1 applic Docusate Sodium (Colace) 100 mg PO BID [facility] Last Admin: 03/27/18 09:23 Dose: 100 mg Furosemide (Lasix) 40 mg PO 0800,1400 [facility] Last Admin: 03/27/18 09:23 Dose: 40 mg Sodium Chloride (Sodium Chloride 0.9%) 1,000 mls @ 50 mls/hr IV .Q20H [facility] Levothyroxine Sodium (Synthroid) 75 mcg PO 0600 [facility] Last Admin: 03/27/18 06:13 Dose: 75 mcg Magnesium Hydroxide (Milk Of Magnesia) 30 ml PO DAILY PRN PRN Reason: Constipation Last Admin: 03/20/18 09:30 Dose: 30 ml Ondansetron HCl (Zofran Inj) 4 mg IVP ONCE PRN PRN Reason: Nausea/Vomiting Oxycodone/Acetaminophen (Percocet 10/325 Mg Tab) 1 tab PO Q6H PRN PRN Reason: Pain, moderate (4-7) Last Admin: 03/27/18 12:26 Dose: 1 tab Potassium Chloride (Klor-Con 10) 10 meq PO BRK [facility] Last Admin: 03/27/18 09:23 Dose: 10 meq Tamsulosin HCl (Flomax) 0.4 mg PO DAILY [facility] Last Admin: 03/27/18 09:23 Dose: 0.4 mg - Labs Labs: 03/27/18 06:30 03/27/18 06:30 PT 15.2 SECONDS (9.4-12.5) H 03/15/18 08:10 INR 1.31 (0.93-1.08) H 03/15/18 08:10 Attending/Attestation - Attestation I have personally seen and examined this patient.: Yes I have fully participated in the care of the patient.: Yes I have reviewed all pertinent clinical information, including history, physical exam and plan: Yes
[2018-03-26] MEDS ORDERED: Magnesium Citrate Oral SOL (300 ml) PO ONE (16:04)
--- NOTE | 2018-03-26 16:32 | CP.PCM.PN ---
Subjective - Date & Time of Evaluation Date of Evaluation: 03/26/18 Time of Evaluation: 11:50 - Subjective Subjective: Patient is feeling better but will have cardiac procedure tomorrow and is anxious about it, no fevers, less pain in the right foot. Objective - Vital Signs/Intake and Output Vital Signs (last 24 hours): Temp Pulse Resp BP Pulse Ox 97.2 F L 70 20 112/56 L 96 03/26/18 08:18 03/26/18 08:18 03/26/18 08:18 03/26/18 09:19 03/26/18 08:18 Intake and Output: 03/26/18 03/26/18 06:59 18:59 Intake Total 800 Output Total 700 Balance 100 - Medications Medications: Current Medications Acetaminophen (Tylenol 325mg Tab) 650 mg PO Q4H PRN PRN Reason: Pain, Mild (1-3) Last Admin: 03/24/18 19:34 Dose: 650 mg Aspirin (Ecotrin) 81 mg PO DAILY [facility] Last Admin: 03/26/18 09:19 Dose: 81 mg Betamethasone/Clotrimazole (Lotrisone) 0 ml TOP BID [facility] Last Admin: 03/25/18 14:03 Dose: 1 applic Clopidogrel Bisulfate (Plavix) 75 mg PO DAILY [facility] Last Admin: 03/26/18 09:19 Dose: 75 mg Collagenase (Santyl) 0 gm TOP DAILY [facility] Last Admin: 03/25/18 14:03 Dose: 1 applic Furosemide (Lasix) 40 mg PO TID [facility] Last Admin: 03/26/18 09:19 Dose: 40 mg Cefepime HCl (Maxipime 1gm) 1 gm in 100 mls @ 100 mls/hr IVPB Q12 [facility] PRN Reason: Protocol Stop: 03/30/18 10:01 Last Admin: 03/26/18 09:37 Dose: 100 mls/hr Levothyroxine Sodium (Synthroid) 75 mcg PO 0600 [facility] Last Admin: 03/26/18 05:57 Dose: 75 mcg Magnesium Hydroxide (Milk Of Magnesia) 30 ml PO DAILY PRN PRN Reason: Constipation Last Admin: 03/20/18 09:30 Dose: 30 ml Mupirocin (Bactroban Ointment) 0 gm TOP BID [facility] Last Admin: 03/24/18 10:15 Dose: 1 applic Ondansetron HCl (Zofran Inj) 4 mg IVP ONCE PRN PRN Reason: Nausea/Vomiting Oxycodone/Acetaminophen (Percocet 10/325 Mg Tab) 1 tab PO Q6H PRN PRN Reason: Pain, moderate (4-7) Last Admin: 03/24/18 21:50 Dose: 1 tab Potassium Chloride (Klor-Con 10) 10 meq PO BRK [facility] Last Admin: 03/26/18 09:19 Dose: 10 meq Tamsulosin HCl (Flomax) 0.4 mg PO DAILY [facility] Last Admin: 03/26/18 09:18 Dose: 0.4 mg - Labs Labs: 03/25/18 06:45 03/25/18 06:45 PT 15.2 SECONDS (9.4-12.5) H 03/15/18 08:10 INR 1.31 (0.93-1.08) H 03/15/18 08:10 - Constitutional Appears: Chronically Ill - Head Exam Head Exam: NORMAL INSPECTION - Neck Exam Neck Exam: absent: Meningismus - Respiratory Exam Respiratory Exam: Decreased Breath Sounds - Cardiovascular Exam Cardiovascular Exam: +S1, +S2 - GI/Abdominal Exam GI & Abdominal Exam: Soft. absent: Tenderness - Extremities Exam Additional comments: right foot with dressings in place Assessment and Plan - Assessment and Plan (Free Text) Plan: Assessment consider right leg skin and skin structure infection associated with severe peripheral vascular disease S/P angioplasty and stenting POD #12, growing Acinetobacter peptic ulcer disease history of hyperthyroidism gout severe peripheral arterial disease S/P left sided stenting Plan continue Cefepime day 10 - should be able to d/c after today
--- NOTE | 2018-03-27 00:28 | PN ---
DATE: 03/26/2018 SUBJECTIVE: Patient was seen this Sunday in room 571, bed 2 with his son Asher at the bedside. Patient is awake, alert, clear and appropriate, understanding the results of his thallium stress that was abnormal. He is scheduled for cardiac catheterization tomorrow. I spoke with the patient at length explaining the procedure and the reason why he should proceed. He consented and we will proceed. In the meantime, we will work on getting him up and out of the bed and some more physical therapy. We will await results of cardiac cath tomorrow. Cezar Porter MD
[2018-03-27] MEDS: Levothyroxine 75 MCG TAB PO SCH (06:13)
[2018-03-27] MEDS ORDERED: Sodium Chloride 0.9% 1,000 ML IV SCH ×3 (07:00→18:10)
[2018-03-27 07:05] LABS: BASO # 0.04 K/mm3 (0.0-2.0); BASO % 0.5 % (0.0-3.0); EOS # 0.3 (0.0-0.7); EOS % 3.3 % (1.5-5.0); GRAN # 4.98 (1.4-6.5); GRAN % 65.6 % (50.0-68.0); HEMOGLOBIN 10.6 g/dL (14.0-18.0); LYMPH # 1.8 (1.2-3.4); MEAN CELL VOLUME 85.3 fl (80.0-105.0); MEAN CORPUSCULAR HEMOGLOBIN 27.7 pg (25.0-35.0); MEAN CORPUSCULAR HGB CONC 32.5 g/dl (31.0-37.0); MEAN PLATELET VOLUME 9.5 fl (7.0-11.0); MONO # 0.5 (0.1-0.6); MONO % 6.6 % (1.0-6.0); RBC 3.82 10^6/uL (3.5-6.1); RED CELL DISTRIBUTION WIDTH 14.8 % (11.5-14.5); WHITE BLOOD COUNT 7.6 10^3/ul (4.5-11.0)
[2018-03-27 07:44] LABS: ALB/GLOB RATIO 1.1 (1.1-1.8); ALBUMIN 3.3 g/dL (3.0-4.8); ALT/SGPT 39 U/L (7-56); AST/SGOT 42 U/L (17-59); BLOOD UREA NITROGEN 16 mg/dL (7-21); CALCIUM 8.9 mg/dL (8.4-10.5); GFR AFRICAN-AMERICAN > 60; GFR NON-AFRICAN AMERICAN > 60
[2018-03-27] MEDS: Potassium Chloride 10 mEq ER Tab PO SCH (09:23)
[2018-03-27] MEDS: Cefepime 1gm in NS 100ml 1 GM/100 ML BAG IVPB SCH (09:54)
--- NOTE | 2018-03-27 12:16 | CP.PCM.PN ---
Subjective - Date & Time of Evaluation Date of Evaluation: 03/27/18 Time of Evaluation: 11:40 - Subjective Subjective: Patient is doing physical therapy around the hallway, feeling better, no fevers. Objective - Vital Signs/Intake and Output Vital Signs (last 24 hours): Temp Pulse Resp BP Pulse Ox 97.5 F L 65 10 L 134/62 97 03/27/18 08:23 03/27/18 08:23 03/27/18 08:23 03/27/18 09:23 03/27/18 08:23 Intake and Output: 03/27/18 03/27/18 06:59 18:59 Intake Total 480 Output Total 150 Balance 330 - Medications Medications: Current Medications Acetaminophen (Tylenol 325mg Tab) 650 mg PO Q4H PRN PRN Reason: Pain, Mild (1-3) Last Admin: 03/24/18 19:34 Dose: 650 mg Aspirin (Ecotrin) 81 mg PO DAILY [facility] Last Admin: 03/27/18 09:24 Dose: 81 mg Betamethasone/Clotrimazole (Lotrisone) 0 ml TOP BID [facility] Last Admin: 03/26/18 17:36 Dose: 1 applic Clopidogrel Bisulfate (Plavix) 75 mg PO DAILY [facility] Last Admin: 03/27/18 09:23 Dose: 75 mg Collagenase (Santyl) 0 gm TOP DAILY [facility] Last Admin: 03/26/18 10:45 Dose: 1 applic Docusate Sodium (Colace) 100 mg PO BID [facility] Last Admin: 03/27/18 09:23 Dose: 100 mg Furosemide (Lasix) 40 mg PO 0800,1400 [facility] Last Admin: 03/27/18 09:23 Dose: 40 mg Cefepime HCl (Maxipime 1gm) 1 gm in 100 mls @ 100 mls/hr IVPB Q12 [facility] PRN Reason: Protocol Stop: 03/30/18 10:01 Last Admin: 03/27/18 09:54 Dose: 100 mls/hr Sodium Chloride (Sodium Chloride 0.9%) 1,000 mls @ 50 mls/hr IV .Q20H [facility] Levothyroxine Sodium (Synthroid) 75 mcg PO 0600 [facility] Last Admin: 03/27/18 06:13 Dose: 75 mcg Magnesium Hydroxide (Milk Of Magnesia) 30 ml PO DAILY PRN PRN Reason: Constipation Last Admin: 03/20/18 09:30 Dose: 30 ml Ondansetron HCl (Zofran Inj) 4 mg IVP ONCE PRN PRN Reason: Nausea/Vomiting Oxycodone/Acetaminophen (Percocet 10/325 Mg Tab) 1 tab PO Q6H PRN PRN Reason: Pain, moderate (4-7) Last Admin: 03/24/18 21:50 Dose: 1 tab Potassium Chloride (Klor-Con 10) 10 meq PO BRK [facility] Last Admin: 03/27/18 09:23 Dose: 10 meq Tamsulosin HCl (Flomax) 0.4 mg PO DAILY [facility] Last Admin: 03/27/18 09:23 Dose: 0.4 mg - Labs Labs: 03/27/18 06:30 03/27/18 06:30 PT 15.2 SECONDS (9.4-12.5) H 03/15/18 08:10 INR 1.31 (0.93-1.08) H 03/15/18 08:10 - Constitutional Appears: Non-toxic, Chronically Ill - Head Exam Head Exam: NORMAL INSPECTION - Neck Exam Neck Exam: absent: Meningismus - Respiratory Exam Respiratory Exam: Decreased Breath Sounds - Cardiovascular Exam Cardiovascular Exam: +S1, +S2 - GI/Abdominal Exam GI & Abdominal Exam: Soft. absent: Tenderness - Extremities Exam Additional comments: right foot with dressings in place Assessment and Plan - Assessment and Plan (Free Text) Plan: Assessment consider right leg skin and skin structure infection associated with severe peripheral vascular disease S/P angioplasty and stenting POD #13, growing Acinetobacter peptic ulcer disease history of hyperthyroidism gout severe peripheral arterial disease S/P left sided stenting Plan on Cefepime day 11 - will d/c today and monitor clinically
[2018-03-27] MEDS: Oxycodone/Acetaminophen 10/325 mg Tab PO PRN ×2 (12:26→19:21)
[2018-03-27] MEDS: Collagenase 250 Units/gm Ointment(30 gm) TOP SCH (12:27)
[2018-03-27] MEDS: Clotrimazole/Betamethasone Lotion(30 ml) TOP SCH (12:28)
--- NOTE | 2018-03-27 13:17 | CP.PCM.PN ---
Subjective - Date & Time of Evaluation Date of Evaluation: 03/27/18 Time of Evaluation: 12:45 - Subjective Subjective: Pt seen at bedside for f/u RLE ulcerations and and right heel and left heel wounds; pt with feet on pillow instead of the MPB- dressing CDI to the right leg - pt going for a cardiac cath today Objective - Vital Signs/Intake and Output Vital Signs (last 24 hours): Temp Pulse Resp BP Pulse Ox 97.5 F L 65 10 L 134/62 97 03/27/18 08:23 03/27/18 08:23 03/27/18 08:23 03/27/18 09:23 03/27/18 08:23 Intake and Output: 03/27/18 03/27/18 06:59 18:59 Intake Total 480 Output Total 150 Balance 330 - Medications Medications: Current Medications Acetaminophen (Tylenol 325mg Tab) 650 mg PO Q4H PRN PRN Reason: Pain, Mild (1-3) Last Admin: 03/24/18 19:34 Dose: 650 mg Aspirin (Ecotrin) 81 mg PO DAILY [facility] Last Admin: 03/27/18 09:24 Dose: 81 mg Betamethasone/Clotrimazole (Lotrisone) 0 ml TOP BID [facility] Last Admin: 03/27/18 12:28 Dose: 1 applic Clopidogrel Bisulfate (Plavix) 75 mg PO DAILY [facility] Last Admin: 03/27/18 09:23 Dose: 75 mg Collagenase (Santyl) 0 gm TOP DAILY [facility] Last Admin: 03/27/18 12:27 Dose: 1 applic Docusate Sodium (Colace) 100 mg PO BID [facility] Last Admin: 03/27/18 09:23 Dose: 100 mg Furosemide (Lasix) 40 mg PO 0800,1400 [facility] Last Admin: 03/27/18 09:23 Dose: 40 mg Sodium Chloride (Sodium Chloride 0.9%) 1,000 mls @ 50 mls/hr IV .Q20H [facility] Levothyroxine Sodium (Synthroid) 75 mcg PO 0600 [facility] Last Admin: 03/27/18 06:13 Dose: 75 mcg Magnesium Hydroxide (Milk Of Magnesia) 30 ml PO DAILY PRN PRN Reason: Constipation Last Admin: 03/20/18 09:30 Dose: 30 ml Ondansetron HCl (Zofran Inj) 4 mg IVP ONCE PRN PRN Reason: Nausea/Vomiting Oxycodone/Acetaminophen (Percocet 10/325 Mg Tab) 1 tab PO Q6H PRN PRN Reason: Pain, moderate (4-7) Last Admin: 03/27/18 12:26 Dose: 1 tab Potassium Chloride (Klor-Con 10) 10 meq PO BRK [facility] Last Admin: 03/27/18 09:23 Dose: 10 meq Tamsulosin HCl (Flomax) 0.4 mg PO DAILY [facility] Last Admin: 03/27/18 09:23 Dose: 0.4 mg - Labs Labs: 03/27/18 06:30 03/27/18 06:30 PT 15.2 SECONDS (9.4-12.5) H 03/15/18 08:10 INR 1.31 (0.93-1.08) H 03/15/18 08:10 - Constitutional Appears: No Acute Distress - Extremities Exam Additional comments: Pt with non-palpable pedal pulses right but the foot and leg is warm - pt with one vesel run-off into the right foot; wounds on the right leg have closed and the cellulitis is resolved - we will order A&D ointment to the leg and d/c dressing starting tomorrow; the heel is stillwith a necrotic eschar which pt has refused to let us debride off - we have been using santyl to soften the area and help with autolytic debridement; no signs of ifnection no edema +pain with minimal palpation of the leg and heel Assessment and Plan - Assessment and Plan (Free Text) Plan: Critical Limb Ischemia s/p angioplasty now one vessel runoff to RLE order A&D ointment continue santyl to the heel R with foam dressing daily
[2018-03-27] MEDS: Vitamins A & D Oint UD Foilpak TOP SCH ×2 (13:45→21:56)
[2018-03-27] MEDS ORDERED: Lidocaine 2% Inj (20ml) ONE (15:35)
[2018-03-27] MEDS ORDERED: Verapamil 2 ML ONE (15:54)
[2018-03-27] MEDS ORDERED: Phenylephrine 10 mg/ml Inj ONE (15:54)
[2018-03-27] MEDS ORDERED: Nitroglycerin 50mg in D5W 50 MG/250 ML BOTTLE IV ONE (15:55)
[2018-03-27] MEDS ORDERED: Iohexol 350mgl/ml 50 ML ONE (15:55)
[2018-03-27] MEDS ORDERED: Iodixanol 320 MG/ML 200 ML BOTTLE IV ONE (15:55)
[2018-03-27] MEDS ORDERED: Midazolam 2 MG/2 ML VIAL ONE (15:55)
[2018-03-27] MEDS ORDERED: Famotidine 20mg/50ml 20 MG/50 ML BAG IVPB ONE (16:03)
[2018-03-27] MEDS ORDERED: DiphenhydrAMINE 50 mg/ml Inj ONE (16:03)
[2018-03-27] MEDS ORDERED: Eptifibatide 20 mg/10mL Inj IVP ONE (16:54)
[2018-03-27] MEDS ORDERED: Iodixanol 320 MG/ML 100 ML BOTTLE IV ONE (17:23)
--- NOTE | 2018-03-27 18:40 | CPOSTOP ---
DATE: 03/27/2018 CARDIOVASCULAR LAB POST PROCEDURE NOTE DICTATING PHYSICIAN: Ginger Vasquez MD STOCK RAISER: YAEL Munson. TYPE OF ANESTHESIA: Moderate conscious sedation, total dose given 2 mg of Versed and 100 of fentanyl, periodically started 1 mg of Versed and 50 of fentanyl. PRE-PROCEDURE DIAGNOSES: Coronary artery disease, abnormal stress test, severe peripheral arterial disease. PROCEDURE PERFORMED: Left heart catheterization and stenting of mid right coronary artery and stenting of distal right coronary artery/posterior descending artery. FINDINGS: Multivessel coronary artery disease, preserved LV function. FINAL DIAGNOSIS: Multivessel coronary artery disease. POST PROCEDURE CONDITION: Patient's condition is stable. VASCULAR ACCESS: Right femoral artery. CLOSURE DEVICE APPLIED: Mynx. TOTAL RADIATION: 66073.9 milligray unit. FLUORO TIME: 15.5 minute. RECOMMENDATION: Stat PTCA of LAD and circumflex on 04/25/2018 at 07:30. Ginger Vasquez MD
--- NOTE | 2018-03-27 18:58 | CARD ---
APPROVED REPORT Procedure(s) performed: Left Heart Catheterization PTCA with Stenting of Mid RCA with MERCEDES PTCA with Stenting of Distal RCA and R PDA with MERCEDES HISTORY 68%. (EF Method: RADIONUCLIDE), previous CHF, peripheral vascular disease, tobacco history() : The patient is a former smoker , Severe PAD with recent peripheral intervention, having multiple risk factors for CAD and abnormal stress test, inferior and inferior-lateral Ischemia. INDICATION The indication(s) include : positive stress test. CASE TECHNIQUE The patient was brought electively to the Cardiac Catheterization Laboratory in a fasting state and was prepped and draped in a sterile manner. The right femoral groin was infiltrated with 2% Lidocaine subcutaneous anesthesia. A 6 Fr x 11 cm Lilian sheath was inserted into the right femoral artery without difficulty. Coronary angiography was performed using coronary diagnostic catheters. The left coronary system was accessed and visualized with a Diagnostic ,5 Fr JL 4 catheter. The right coronary system was accessed and visualized with a Diagnostic ,5 Fr JR 4 catheter. The left ventricle was accessed and visualized with a 5 Fr Pigtail 145 (Angled) catheter. Left ventricular/Aortic Valve gradient assessed on pullback. Left ventriculogram was performed in ARAUZ projection. Closure device was deployed with a 6 Fr / 7 Fr MynxGrip without any complications. The patient tolerated the procedure well and there were no complications associated with the procedure. Vessel Analysis The patient's coronary anatomy is right dominant. The left main coronary artery is a large size vessel with diffuse calcification noted throughout this vessel and without significant stenosis. The left main bifurcates to the left anterior descending and circumflex. The left anterior descending artery is a large size vessel with diffuse calcification noted throughout this vessel and with significant stenosis. There is a 80% stenosis in the mid segment. The first diagonal branch is a medium size vessel with diffuse calcification noted throughout this vessel and without significant stenosis. The second diagonal branch is a medium size vessel with diffuse calcification noted throughout this vessel and without significant stenosis. The third diagonal branch is a medium size vessel with diffuse calcification noted throughout this vessel and without significant stenosis. The circumflex artery is a medium size vessel with diffuse calcification noted throughout this vessel and with significant stenosis. There is a 90% stenosis in the mid segment. The first obtuse marginal branch is a medium size vessel with diffuse calcification noted throughout this vessel and without significant stenosis. There is a 100% stenosis in the ostial segment. The second obtuse marginal branch is a medium size vessel . The right coronary artery is a large size vessel with diffuse calcification noted throughout this vessel and with significant stenosis. There is a 99% stenosis in the mid segment. distal RCA 80% stenosis going into in R PDA The right posterior descending artery is a medium size vessel with diffuse calcification noted throughout this vessel and with significant stenosis. There is a 80% stenosis in the ostial segment. comntinued from distal RCA The right posterolateral branch is a medium size vessel with diffuse calcification noted throughout this vessel and without significant stenosis. Left Ventricle The left ventricle is borderline enlarged in size with normal contractility. There was no cardiomyopathy. The left ventricular ejection fraction is estimated to be 55-60%. The left ventricular end diastolic pressure is 15 mmHg. 10 mm gradient across aortic valve on pull back, c/w mild . PCI Technique Lesion Anticoagulation was achieved with Heparin. Percutaneous coronary intervention was performed on the mid right coronary artery. The lesion stenosis prior to intervention was 99% with SOPHIE 1 flow. A 6 Fr JR 4 Guide Catheter was used to engage the ostium. A Luge 182 Interventional Guidewire was used to cross the lesion. BALLOON DILATION A Balloon catheter 2.0 x 10 mm Sprinter RX was inserted and inflated up to 16.00atm for 23seconds. STENT DEPLOYMENT A drug-eluting stent STENT RESOLUTE HARDEEP 2.75 X18 was inserted and inflated up to 14.00atm for 17seconds. Final angiography reveals 0 % stenosis with SOPHIE 3 flow. PCI Technique Lesion 2 Percutaneous Coronary Intervention was performed on the distal right coronary artery and stenosis continued into ostial R PDA. The lesion stenosis prior to intervention was 80% with SOPHIE 2 flow. A 6 Fr JR 4 Guide Catheter was used to engage the ostium. A Luge 182 Interventional Guidewire was used to cross the lesion. BALLOON DILATION A Balloon catheter 2.0 x 10 mm Sprinter RX was inserted and inflated up to 8.00atm for 33seconds. STENT DEPLOYMENT A drug-eluting stent STENT RESOLUTE HARDEEP 2.25 X12 was inserted and inflated up to 12.00atm for 20seconds. Final angiography reveals 0 % stenosis with SOPHIE 3 flow. Conclusion Multi Vessel CAD, Not willing for OHS. Preserved LV Fx. Successful PTCA with Mercedes of Mid RCA and distal RCA conitued to R PDA. Mild peak to gradient across aortic Valve 10 mm of Hg. Recommendations Daily ASA with Plavix for at least one year Aggressive Medical TherapyCardiac Risk Reduction Program Weight Loss Reduction Program Staged PTCA of LAD and Circumflex on April 25, 2018 at 7:30 am Cc; dr. Francois vilchis / Mar[place]
[2018-03-27 21:55] LABS: BASO # 0.01 K/mm3 (0.0-2.0); BASO % 0.1 % (0.0-3.0); EOS % 0.2 % (1.5-5.0); GRAN % 90.4 % (50.0-68.0); HEMOGLOBIN 11.2 g/dL (14.0-18.0); LYMPH # 0.8 (1.2-3.4); LYMPH % 8.1 % (22.0-35.0); MEAN CELL VOLUME 85.9 fl (80.0-105.0); MEAN CORPUSCULAR HEMOGLOBIN 28.3 pg (25.0-35.0); MEAN CORPUSCULAR HGB CONC 32.9 g/dl (31.0-37.0); MEAN PLATELET VOLUME 9.6 fl (7.0-11.0); MONO # 0.1 (0.1-0.6); MONO % 1.2 % (1.0-6.0); PLATELET COUNT 309 10^3/uL (120.0-450.0); RBC 3.96 10^6/uL (3.5-6.1); RED CELL DISTRIBUTION WIDTH 14.7 % (11.5-14.5); WHITE BLOOD COUNT 9.3 10^3/ul (4.5-11.0)
[2018-03-27 22:04] LABS: BLOOD UREA NITROGEN 16 mg/dL (7-21); CALCIUM 8.8 mg/dL (8.4-10.5); GFR AFRICAN-AMERICAN > 60; GFR NON-AFRICAN AMERICAN 58
[2018-03-27] MEDS ORDERED: Oxycodone/Acetaminophen 10/325 mg Tab PO STA (22:31)
[2018-03-27] MEDS ORDERED: Morphine 4 mg/ml ISec IVP STA (22:34)
[2018-03-27] MEDS ORDERED: Oxycodone/Acetaminophen 10/325 mg Tab PO PRN (22:35)
[2018-03-27 23:08] LABS: BAND 2 % (0-2); EOSINOPHIL 1 % (0.0-3.0); LYMPHOCYTE 10 % (22.0-35.0); MONOCYTE 1 % (1.0-6.0); NEUTROPHIL 86 % (50.0-70.0); PLATELET ESTIMATE NORMAL (NORMAL)
[2018-03-27 23:45] VITALS: RESP 20
--- NOTE | 2018-03-27 23:45 | CP.PCM.PN ---
Subjective - Date & Time of Evaluation Date of Evaluation: 03/27/18 Time of Evaluation: 23:44 - Subjective Subjective: Patient was seen at bedside. He complained of right foot pain. 06/28. BP is 114/50. Has no other complaints. States morphine that he received in the ER helped him for pain. Medical record was reviewed. This 78 year old white male was admitted for right leg pain and both leg swelling. Has PMH of Gout, leg edema , PAD,ex-smoker, allergy to sea food. Objective - Vital Signs/Intake and Output Vital Signs (last 24 hours): Temp Pulse Resp BP Pulse Ox 98.3 F 78 18 100/49 L 98 03/27/18 18:27 03/27/18 20:42 03/27/18 20:42 03/27/18 20:42 03/27/18 15:09 Intake and Output: 03/27/18 03/28/18 18:59 06:59 Intake Total 360 Balance 360 - Medications Medications: Current Medications Acetaminophen (Tylenol 325mg Tab) 650 mg PO Q4H PRN PRN Reason: Pain, Mild (1-3) Last Admin: 03/24/18 19:34 Dose: 650 mg Aspirin (Ecotrin) 81 mg PO DAILY [facility] Last Admin: 03/27/18 09:24 Dose: 81 mg Betamethasone/Clotrimazole (Lotrisone) 0 ml TOP BID [facility] Last Admin: 03/27/18 12:28 Dose: 1 applic Clopidogrel Bisulfate (Plavix) 75 mg PO DAILY [facility] Last Admin: 03/27/18 09:23 Dose: 75 mg Collagenase (Santyl) 0 gm TOP DAILY [facility] Last Admin: 03/27/18 12:27 Dose: 1 applic Docusate Sodium (Colace) 100 mg PO BID [facility] Last Admin: 03/27/18 19:21 Dose: 100 mg Furosemide (Lasix) 40 mg PO 0800,1400 [facility] Last Admin: 03/27/18 14:05 Dose: Not Given Sodium Chloride (Sodium Chloride 0.9%) 1,000 mls @ 50 mls/hr IV .Q20H [facility] Stop: 03/28/18 14:00 Last Admin: 03/27/18 18:34 Dose: 50 mls/hr Levothyroxine Sodium (Synthroid) 75 mcg PO 0600 [facility] Last Admin: 03/27/18 06:13 Dose: 75 mcg Magnesium Hydroxide (Milk Of Magnesia) 30 ml PO DAILY PRN PRN Reason: Constipation Last Admin: 03/20/18 09:30 Dose: 30 ml Ondansetron HCl (Zofran Inj) 4 mg IVP ONCE PRN PRN Reason: Nausea/Vomiting Oxycodone/Acetaminophen (Percocet 10/325 Mg Tab) 1 tab PO Q4H PRN PRN Reason: Pain, moderate (4-7) Potassium Chloride (Klor-Con 10) 10 meq PO BRK [facility] Last Admin: 03/27/18 09:23 Dose: 10 meq Tamsulosin HCl (Flomax) 0.4 mg PO DAILY [facility] Last Admin: 03/27/18 09:23 Dose: 0.4 mg Vitamin A (Vitamin A & D Oint Ud Foilpak) 1 ea TOP Q8 [facility] Stop: 04/03/18 14:01 Last Admin: 03/27/18 21:56 Dose: Not Given - Labs Labs: 03/27/18 21:51 03/27/18 21:51 PT 15.2 SECONDS (9.4-12.5) H 03/15/18 08:10 INR 1.31 (0.93-1.08) H 03/15/18 08:10 Micro Results 03/14/18 12:30 Blood Blood Culture - Final NO GROWTH AFTER 5 DAYS 03/14/18 12:30 Blood Gram Stain - Final TEST NOT PERFORMED 03/14/18 12:15 Blood Blood Culture - Final NO GROWTH AFTER 5 DAYS 03/14/18 12:15 Blood Gram Stain - Final TEST NOT PERFORMED 03/14/18 13:20 Leg - Right Gram Stain - Final 03/14/18 13:20 Leg - Right Wound Culture - Final Acinetobacter Baumannii Most Recent Lab Values WBC 9.3 10^3/ul (4.5-11.0) D 03/27/18 21:51 RBC 3.96 10^6/uL (3.5-6.1) 03/27/18 21:51 Hgb 11.2 g/dL (14.0-18.0) L 03/27/18 21:51 Hct 34.0 % (42.0-52.0) L 03/27/18 21:51 MCV 85.9 fl (80.0-105.0) 03/27/18 21:51 MCH 28.3 pg (25.0-35.0) 03/27/18 21:51 MCHC 32.9 g/dl (31.0-37.0) 03/27/18 21:51 RDW 14.7 % (11.5-14.5) H 03/27/18 21:51 Plt Count 309 10^3/uL (120.0-450.0) 03/27/18 21:51 MPV 9.6 fl (7.0-11.0) 03/27/18 21:51 Gran % 90.4 % (50.0-68.0) H 03/27/18 21:51 Lymph % (Auto) 8.1 % (22.0-35.0) L 03/27/18 21:51 Murray % (Auto) 1.2 % (1.0-6.0) 03/27/18 21:51 Eos % (Auto) 0.2 % (1.5-5.0) L 03/27/18 21:51 Baso % (Auto) 0.1 % (0.0-3.0) 03/27/18 21:51 Gran # 8.40 (1.4-6.5) H 03/27/18 21:51 Lymph # (Auto) 0.8 (1.2-3.4) L 03/27/18 21:51 Murray # (Auto) 0.1 (0.1-0.6) 03/27/18 21:51 Eos # (Auto) 0.0 (0.0-0.7) 03/27/18 21:51 Baso # (Auto) 0.01 K/mm3 (0.0-2.0) 03/27/18 21:51 Neutrophils % (Manual) 86 % (50.0-70.0) H 03/27/18 21:51 Band Neutrophils % 2 % (0-2) 03/27/18 21:51 Lymphocytes % (Manual) 10 % (22.0-35.0) L 03/27/18 21:51 Monocytes % (Manual) 1 % (1.0-6.0) 03/27/18 21:51 Eosinophils % (Manual) 1 % (0.0-3.0) 03/27/18 21:51 Platelet Evaluation Normal (NORMAL) 03/27/18 21:51 PT 15.2 SECONDS (9.4-12.5) H 03/15/18 08:10 INR 1.31 (0.93-1.08) H 03/15/18 08:10 Sodium 139 mmol/L (132-148) 03/27/18 21:51 Potassium 4.6 mmol/L (3.6-5.0) 03/27/18 21:51 Chloride 101 mmol/L (98-107) 03/27/18 21:51 Carbon Dioxide 28 mmol/L (21-33) 03/27/18 21:51 Anion Gap 15 (10-20) 03/27/18 21:51 BUN 16 mg/dL (7-21) 03/27/18 21:51 Creatinine 1.2 mg/dl (0.8-1.5) 03/27/18 21:51 Est GFR ( Amer) > 60 03/27/18 21:51 Est GFR (Non-Af Amer) 58 03/27/18 21:51 Random Glucose 173 mg/dL (70-110) H 03/27/18 21:51 Hemoglobin A1c 5.5 % (4.2-6.5) 03/23/18 06:30 Calcium 8.8 mg/dL (8.4-10.5) 03/27/18 21:51 Phosphorus 4.3 mg/dL (2.5-4.5) 03/27/18 06:30 Magnesium 2.0 mg/dL (1.7-2.2) 03/27/18 06:30 Total Bilirubin 0.2 mg/dL (0.2-1.3) 03/27/18 06:30 AST 42 U/L (17-59) 03/27/18 06:30 ALT 39 U/L (7-56) 03/27/18 06:30 Alkaline Phosphatase 61 U/L (38-126) 03/27/18 06:30 Lactate Dehydrogenase 465 U/L (333-699) 03/22/18 15:45 Total Creatine Kinase 120 U/L (35-230) 03/22/18 15:45 Troponin I 0.02 ng/mL D 03/22/18 15:45 Total Protein 6.4 g/dL (5.8-8.3) 03/27/18 06:30 Albumin 3.3 g/dL (3.0-4.8) 03/27/18 06:30 Globulin 3.1 gm/dL 03/27/18 06:30 Albumin/Globulin Ratio 1.1 (1.1-1.8) 03/27/18 06:30 Triglycerides 203 mg/dL (35-160) H 03/23/18 06:30 Cholesterol 173 mg/dL (130-200) 03/23/18 06:30 LDL Cholesterol Direct 104 mg/dL (0-129) 03/23/18 06:30 HDL Cholesterol 24 mg/dL (29-60) L 03/23/18 06:30 TSH 3rd Generation 18.70 mIU/mL (0.46-4.68) H 03/24/18 07:45 Urine Eosinophils Negative 03/22/18 19:35 - Constitutional Appears: Well, No Acute Distress - Head Exam Head Exam: ATRAUMATIC, NORMAL INSPECTION, NORMOCEPHALIC - Eye Exam Eye Exam: Normal appearance - ENT Exam ENT Exam: Normal External Ear Exam - Neck Exam Neck Exam: Normal Inspection - Respiratory Exam Respiratory Exam: NORMAL BREATHING PATTERN - Cardiovascular Exam Cardiovascular Exam: absent: JVD - GI/Abdominal Exam GI & Abdominal Exam: absent: Distended - Rectal Exam Rectal Exam: Deferred - Exam Additional comments: Deferred. - Extremities Exam Additional comments: Both legs swelling present. Right leg>left leg. Right leg erythema present. - Back Exam Back Exam: NORMAL INSPECTION - Neurological Exam Neurological Exam: Awake, Oriented x3 - Psychiatric Exam Psychiatric exam: Normal Affect, Normal Mood - Skin Skin Exam: Normal Color Assessment and Plan - Assessment and Plan (Free Text) Assessment: Right leg pain. Both leg edema. History of gout. PAD. Es-smoker. 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 Plan: Morphine sulfate 4 mg IV x 1. Increase frequency of percocet from Q6H to Q4H. Continue management as per PMD.
[2018-03-27 23:48] VITALS: TEMP 97.3
[2018-03-28 00:26] VITALS: PULSE 63
[2018-03-28 00:28] VITALS: O2SAT 97
--- NOTE | 2018-03-28 00:55 | PN ---
DATE: 03/27/2018 DAILY PROGRESS NOTE SUBJECTIVE: The patient is a 78-year-old male with a history of gout, congestive heart failure, benign prostatic hypertrophy, coronary artery disease, and hypothyroidism, who was admitted to the [facility] [place] on 03/14, with cellulitis of the right lower extremity. He underwent revascularization of the right lower extremity with Dr. Yasir Reed and did well. He was followed by Dr. Dixon as far as Infectious Disease and was treated with intravenous antibiotics for Acinetobacter cultures, which grew from his leg wound. Towards the end of the hospital stay, he developed chest pain. He underwent thallium stress test. The first part of the exam was normal; however, the thallium scan showed coronary disease. Therefore, the patient was held for coronary catheterization, which he underwent today. Two stents were placed in right coronary artery and the patient was scheduled to return in early April for stenting of the left anterior descending and circumflex arteries. Patient tolerated the procedure well. He will be reevaluated in the morning and his vital signs were stable. Serum chemistries and CBC were acceptable. Goyo Porter MD
[2018-03-28] MEDS: Levothyroxine 75 MCG TAB PO SCH (05:32)
[2018-03-28] MEDS: Vitamins A & D Oint UD Foilpak TOP SCH (05:33)
[2018-03-28 06:38] LABS: BASO # 0.01 K/mm3 (0.0-2.0); BASO % 0.1 % (0.0-3.0); GRAN # 12.87 (1.4-6.5); GRAN % 87.5 % (50.0-68.0); HEMOGLOBIN 11.7 g/dL (14.0-18.0); LYMPH # 1.4 (1.2-3.4); LYMPH % 9.4 % (22.0-35.0); MEAN CELL VOLUME 85.7 fl (80.0-105.0); MEAN CORPUSCULAR HEMOGLOBIN 28.3 pg (25.0-35.0); MEAN CORPUSCULAR HGB CONC 33.1 g/dl (31.0-37.0); MONO # 0.4 (0.1-0.6); RBC 4.13 10^6/uL (3.5-6.1); RED CELL DISTRIBUTION WIDTH 14.7 % (11.5-14.5); WHITE BLOOD COUNT 14.7 10^3/ul (4.5-11.0)
[2018-03-28 07:15] LABS: ALB/GLOB RATIO 1.1 (1.1-1.8); ALBUMIN 3.6 g/dL (3.0-4.8); ALT/SGPT 43 U/L (7-56); AST/SGOT 44 U/L (17-59); BLOOD UREA NITROGEN 20 mg/dL (7-21); CALCIUM 9.4 mg/dL (8.4-10.5); GFR AFRICAN-AMERICAN > 60; GFR NON-AFRICAN AMERICAN > 60
[2018-03-28] MEDS: Potassium Chloride 10 mEq ER Tab PO SCH (07:31)
[2018-03-28 07:42] VITALS: BP 135/69
[2018-03-28] MEDS: Collagenase 250 Units/gm Ointment(30 gm) TOP SCH (09:26)
[2018-03-28] MEDS: Clotrimazole/Betamethasone Lotion(30 ml) TOP SCH (09:27)
--- NOTE | 2018-03-28 10:20 | CARD ---
APPROVED REPORT EKG Measurement Heart [id number] <Conclusion> Normal sinus rhythm NSSTW changes No change
--- NOTE | 2018-03-28 11:55 | CP.PCM.PN ---
Subjective - Date & Time of Evaluation Date of Evaluation: 03/28/18 Time of Evaluation: 07:15 - Subjective Subjective: Lying in bed, awake, no distress, denies chest pain Reason for consultation and follow up: cardiac evaluation, chest pain, severe peripheral arterial disease, cellulitis, post cardiac cath and stenting of RCA Seen and examined by me and Dr. Camarillo Objective - Vital Signs/Intake and Output Vital Signs (last 24 hours): Temp Pulse Resp BP Pulse Ox 97.3 F L 63 20 135/69 97 03/28/18 00:12 03/28/18 10:00 03/28/18 00:12 03/28/18 07:31 03/28/18 00:01 Intake and Output: 03/28/18 03/28/18 06:59 18:59 Intake Total 890 Output Total 400 Balance 490 - Labs Labs: 03/28/18 05:30 03/28/18 05:30 PT 15.2 SECONDS (9.4-12.5) H 03/15/18 08:10 INR 1.31 (0.93-1.08) H 03/15/18 08:10 - Constitutional Appears: No Acute Distress - Eye Exam Eye Exam: Normal appearance Pupil Exam: NORMAL ACCOMODATION - ENT Exam ENT Exam: Mucous Membranes Moist - Respiratory Exam Respiratory Exam: Clear to Ausculation Bilateral, NORMAL BREATHING PATTERN - Cardiovascular Exam Cardiovascular Exam: REGULAR RHYTHM, +S1, +S2 - GI/Abdominal Exam GI & Abdominal Exam: Soft, Normal Bowel Sounds - Extremities Exam Additional comments: right groin no bleeding,no hematoma 2+ pedal edema. cellulitis - Neurological Exam Neurological Exam: Alert, Awake, Oriented x3 - Psychiatric Exam Psychiatric exam: Normal Affect, Normal Mood - Skin Skin Exam: Intact, Normal Color, Warm Assessment and Plan - Assessment and Plan (Free Text) Assessment: A 78 year old male came in to the ER due to cellulitis. History of severe PAD, ex smoker, abnormal JONAH test, cellulitis, common iliac PTCA with stent, BPH, hypothyroidism, post PTCA of RCA. Plan: Cardiac catheterization done yesterday; LAD-80%,Mid Cx 90%, Ostial Cx 100%,Mid RCA 90% Distal RCA 80 % going to right PDA, 80% in the ostial RCA PTCA with stent drug eluding of Mid RCA, Distal RCA and right PDA Staged PTCA of LAD and CX on April 25 2018 at 7:[address] [facility]. On ASA 81 mg daily,Plavix 75 mg daily,Lasix 40 mg TID Continue current medications Continue current treatment Possible discharge and follow up in office 1-2 weeks Will follow up Plan and treatment discussed with Dr. Camarillo
--- NOTE | 2018-03-28 11:57 | CP.PCM.PN ---
Subjective - Date & Time of Evaluation Date of Evaluation: 03/28/18 Time of Evaluation: 09:55 - Subjective Subjective: Comfortable, improved pain in the right foot and leg, no fevers, had cardiac cath yesterday. Objective - Vital Signs/Intake and Output Vital Signs (last 24 hours): Temp Pulse Resp BP Pulse Ox 97.3 F L 63 20 111/52 L 97 03/28/18 00:12 03/28/18 00:12 03/28/18 00:12 03/28/18 00:12 03/28/18 00:01 Intake and Output: 03/27/18 03/28/18 18:59 06:59 Intake Total 360 650 Balance 360 650 - Medications Medications: Current Medications Acetaminophen (Tylenol 325mg Tab) 650 mg PO Q4H PRN PRN Reason: Pain, Mild (1-3) Last Admin: 03/24/18 19:34 Dose: 650 mg Aspirin (Ecotrin) 81 mg PO DAILY [facility] Last Admin: 03/27/18 09:24 Dose: 81 mg Betamethasone/Clotrimazole (Lotrisone) 0 ml TOP BID [facility] Last Admin: 03/27/18 12:28 Dose: 1 applic Clopidogrel Bisulfate (Plavix) 75 mg PO DAILY [facility] Last Admin: 03/27/18 09:23 Dose: 75 mg Collagenase (Santyl) 0 gm TOP DAILY [facility] Last Admin: 03/27/18 12:27 Dose: 1 applic Docusate Sodium (Colace) 100 mg PO BID [facility] Last Admin: 03/27/18 19:21 Dose: 100 mg Furosemide (Lasix) 40 mg PO 0800,1400 [facility] Last Admin: 03/27/18 14:05 Dose: Not Given Sodium Chloride (Sodium Chloride 0.9%) 1,000 mls @ 50 mls/hr IV .Q20H [facility] Stop: 03/28/18 14:00 Last Admin: 03/27/18 18:34 Dose: 50 mls/hr Levothyroxine Sodium (Synthroid) 75 mcg PO 0600 [facility] Last Admin: 03/28/18 05:32 Dose: 75 mcg Magnesium Hydroxide (Milk Of Magnesia) 30 ml PO DAILY PRN PRN Reason: Constipation Last Admin: 03/20/18 09:30 Dose: 30 ml Ondansetron HCl (Zofran Inj) 4 mg IVP ONCE PRN PRN Reason: Nausea/Vomiting Oxycodone/Acetaminophen (Percocet 10/325 Mg Tab) 1 tab PO Q4H PRN PRN Reason: Pain, moderate (4-7) Potassium Chloride (Klor-Con 10) 10 meq PO BRK [facility] Last Admin: 03/27/18 09:23 Dose: 10 meq Tamsulosin HCl (Flomax) 0.4 mg PO DAILY [facility] Last Admin: 03/27/18 09:23 Dose: 0.4 mg Vitamin A (Vitamin A & D Oint Ud Foilpak) 1 ea TOP Q8 [facility] Stop: 04/03/18 14:01 Last Admin: 03/28/18 05:33 Dose: 1 ea - Labs Labs: 03/27/18 21:51 03/27/18 21:51 PT 15.2 SECONDS (9.4-12.5) H 03/15/18 08:10 INR 1.31 (0.93-1.08) H 03/15/18 08:10 - Constitutional Appears: Non-toxic, Chronically Ill - Head Exam Head Exam: NORMAL INSPECTION - ENT Exam ENT Exam: Mucous Membranes Moist - Neck Exam Neck Exam: absent: Meningismus - Respiratory Exam Respiratory Exam: Decreased Breath Sounds - Cardiovascular Exam Cardiovascular Exam: +S1, +S2 - GI/Abdominal Exam GI & Abdominal Exam: Soft. absent: Tenderness - Extremities Exam Additional comments: right foot with decreased swelling and redness Assessment and Plan - Assessment and Plan (Free Text) Plan: Assessment consider right leg skin and skin structure infection associated with severe peripheral vascular disease S/P angioplasty and stenting POD #14, growing Acinetobacter, S/P treatment with antibiotics peptic ulcer disease history of hyperthyroidism gout severe peripheral arterial disease S/P left sided stenting Plan completed course of Cefepime - monitor off antibiotics - discussed with Dr. Porter
--- NOTE | 2018-03-28 13:46 | CP.PCM.PN ---
Subjective - Date & Time of Evaluation Date of Evaluation: 03/28/18 Time of Evaluation: 13:45 - Subjective Subjective: 78 y/o male seen at bedside for f/u on RLE ulcerations to ankle and right heel and left stage 1 pressure heel wounds. Pt with feet on pillow instead of multipodus boots. Dressings to RLE are clean dry and intact. Denies any pain to the lower extremities. Denies F/C/N/V/CP/SOB Objective - Vital Signs/Intake and Output Vital Signs (last 24 hours): Temp Pulse Resp BP Pulse Ox 97.3 F L 63 20 135/69 97 03/28/18 00:12 03/28/18 10:00 03/28/18 00:12 03/28/18 07:31 03/28/18 00:01 Intake and Output: 03/28/18 03/28/18 06:59 18:59 Intake Total 890 Output Total 400 Balance 490 - Labs Labs: 03/28/18 05:30 03/28/18 05:30 PT 15.2 SECONDS (9.4-12.5) H 03/15/18 08:10 INR 1.31 (0.93-1.08) H 03/15/18 08:10 - Constitutional Appears: Well, Non-toxic, No Acute Distress - Extremities Exam Additional comments: VASC: DP/PT pulses are non-palpable B/L. CFT < 3 sec to all digits. Temp gradient warm to warm from proximal to distal. Non-pitting edema noted diffusely , R>L. DERM: Right anteromedial lower leg ulceration now noted to be healed. Mild ino wound erythema noted >2cm in margins, resolving greatly since admission. Right plantar lateral heel exhibits non stageable ulceration with thickened necrotic tissue roof. Left posterior heel exhibits stage 1 pressure ulceration with mild erythema, with no clinical signs of infection and no probe to bone. NEURO: Protective sensation mildly diminished B/L ORTHO: Moderate tenderness on palpation of the distal right anterior leg at wound site. Tenderness to palpation of toenails x10. MMT: 5/5 in all four directions at the ankle and subtalar joint - Neurological Exam Neurological Exam: Alert, Awake, Oriented x3 - Psychiatric Exam Psychiatric exam: Normal Affect, Normal Mood Assessment and Plan - Assessment and Plan (Free Text) Assessment: 78 y/o male with right anterior leg ulceration, right heel nonstageable ulceration and left stage 1 pressure ulceration secondary to PAD Plan: Patient seen and evaluated Discussed with attending Dr. Mc Charts, labs, vitals reviewed - afebrile, no leukocytosis Wound cx final: Acinetobacter Baumannii Continue IV abx per ID Anterior leg wound now healed, no dressing needed - Lotrisone applied to skin R heel ulceration dressed with Santyl and Optifoam Pt stable from podiatry standpoint Patient to f/u in wound care center upon discharge Podiatry will continue to follow while patient in house
--- NOTE | 2018-03-28 14:01 | CARD ---
APPROVED REPORT EKG Measurement Heart [id number] LA 154P67 [id number] <Conclusion> Sinus rhythm with occasional premature ventricular complexes NSSTW changes
--- NOTE | 2018-03-29 21:51 | DS ---
HISTORY OF PRESENT ILLNESS: This is a 78-year-old man, who presented to the office approximately 1 month before the date of admission with bilateral swelling in his lower extremities. Workup was examined including ultrasound, which was negative for DVTs; normal labs with thyroid function, renal function; echocardiogram that was normal. When he presented for a stress test approximately 3 weeks later, the legs were remarkably edematous and weeping, red and painful. Stress test was not done. The patient was advised to come to see me and was admitted with the bilateral cellulitis. COURSE OF HOSPITAL STAY: Immediately upon admission because of claudication and pain at rest, he was taken to the label operator by Dr. Yasir Reed for revascularization of the right lower extremity. Antibiotics were given according to Infectious Disease review consultant, Dr. Leslie and Dr. Dixon and the patient improved dramatically. Thallium stress test had been ordered. The patient had an episode of chest discomfort in the recent night, so stress test was ordered, it was abnormal and the patient underwent cardiac catheterization with stent placement in the right coronary artery, there were 2 other stents on the left side, which will be addressed in a near future. Clinically improved with cellulitis resolved after his 14-day stay at the hospital. He was ready for discharged to home the day after cardiac catheterization. I will continue on aspirin and Plavix. He is done with his course of antibiotics. He will follow up with me in 1 week and with paper wood cutter within 2 weeks for repeat catheterization and stenting of the left coronary arteries. FINAL DISCHARGE DIAGNOSES: 1. Cellulitis of the right lower extremity. 2. Peripheral artery disease with acute occlusion of the right femoral artery. 3. Coronary artery disease. 4. Unstable angina during this hospital stay. 5. Hypothyroidism. Cezar Porter MD
== END 2018-03-28 11:24 | disposition home or self-care (01) | DRG 271 ==
LOC: ED 11:45 → ERH 12:08 → 5RSO 14:54 → 2RNO 20:50 → 5RSO 03-15 04:46 → 2RNO 03-27 18:12
PROVIDERS: ADMIT Internal Medicine; ATTEND Internal Medicine
PROC: 04CM3ZZ Extirpation of Matter from Right Popliteal Artery, Percutaneous Approach (ICD-10-PCS; principal; 2018-03-14)
PROC: 047M34Z Dilation of Right Popliteal Artery with Drug-eluting Intraluminal Device, Percutaneous Approach (ICD-10-PCS; 2018-03-14)
PROC: 047K3DZ Dilation of Right Femoral Artery with Intraluminal Device, Percutaneous Approach (ICD-10-PCS; 2018-03-14)
PROC: 047P3ZZ Dilation of Right Anterior Tibial Artery, Percutaneous Approach (ICD-10-PCS; 2018-03-14)
PROC: 04CP3ZZ Extirpation of Matter from Right Anterior Tibial Artery, Percutaneous Approach (ICD-10-PCS; 2018-03-14)
PROC: 047D3DZ Dilation of Left Common Iliac Artery with Intraluminal Device, Percutaneous Approach (ICD-10-PCS; 2018-03-14)
PROC: B41DYZZ Fluoroscopy of Aorta and Bilateral Lower Extremity Arteries using Other Contrast (ICD-10-PCS; 2018-03-14)
PROC: 027035Z Dilation of Coronary Artery, One Artery with Two Drug-eluting Intraluminal Devices, Percutaneous Approach (ICD-10-PCS; 2018-03-27)
PROC: 4A023N7 Measurement of Cardiac Sampling and Pressure, Left Heart, Percutaneous Approach (ICD-10-PCS; 2018-03-27)
PROC: B211YZZ Fluoroscopy of Multiple Coronary Arteries using Other Contrast (ICD-10-PCS; 2018-03-27)
PROC: B215YZZ Fluoroscopy of Left Heart using Other Contrast (ICD-10-PCS; 2018-03-27)
PROC: 3E033PZ Introduction of Platelet Inhibitor into Peripheral Vein, Percutaneous Approach (ICD-10-PCS; 2018-03-27)
DX: I70.234 Atherosclerosis of native arteries of right leg with ulceration of heel and midfoot (principal); I70.233 Atherosclerosis of native arteries of right leg with ulceration of ankle; T82.856A Stenosis of peripheral vascular stent, initial encounter; L03.115 Cellulitis of right lower limb; L03.116 Cellulitis of left lower limb; L97.319 Non-pressure chronic ulcer of right ankle with unspecified severity; L97.419 Non-pressure chronic ulcer of right heel and midfoot with unspecified severity; I87.2 Venous insufficiency (chronic) (peripheral); L89.621 Pressure ulcer of left heel, stage 1; J44.9 Chronic obstructive pulmonary disease, unspecified; D64.9 Anemia, unspecified; S90.821A Blister (nonthermal), right foot, initial encounter; N40.0 Benign prostatic hyperplasia without lower urinary tract symptoms; I25.10 Atherosclerotic heart disease of native coronary artery without angina pectoris; I50.9 Heart failure, unspecified; E03.9 Hypothyroidism, unspecified; K27.9 Peptic ulcer, site unspecified, unspecified as acute or chronic, without hemorrhage or perforation; I34.0 Nonrheumatic mitral (valve) insufficiency; K59.00 Constipation, unspecified; E05.90 Thyrotoxicosis, unspecified without thyrotoxic crisis or storm; M10.9 Gout, unspecified; Y83.8 Other surgical procedures as the cause of abnormal reaction of the patient, or of later complication, without mention of misadventure at the time of the procedure; Z74.01 Bed confinement status; Y92.009 Unspecified place in unspecified non-institutional (private) residence as the place of occurrence of the external cause; Z87.891 Personal history of nicotine dependence

== ENCOUNTER 2018-04-25 06:29 | Day surgery (SDC) | payer MEDICARE ==
--- NOTE | 2018-04-25 01:44 | HP ---
REASON FOR ADMISSION: Left heart cath and staged angioplasty of LAD and circumflex. BRIEF CLINICAL HISTORY: This is a 78-year-old male with past medical history significant for coronary artery disease, status post PTCA of mid RCA, distal RCA and RPDA on 03/27/2018 with the patient having abnormal stress test, admitted with cellulitis and because of risk stratification. Patient underwent a stress test. Now, patient is admitted for a staged angioplasty of LAD plus or minus circumflex. Patient denies any chest pain, shortness of breath, or any palpitation. PAST MEDICAL HISTORY: Significant for peripheral arterial disease, history of severe PAD, history of CSI atherectomy that was in 03/14/2018 of right SFA, history of coronary artery disease, abnormal stress test status post PTCA of RCA on 03/27/2018. PREVIOUS CARDIAC WORKUP: As follows: Patient had a cardiac catheterization on 03/27/2018 that showed multivessel coronary artery disease and admitting for an open heart surgery, preserved LV function, status post PTCA with TAJ of mid RCA and distal RCA, continued RPDA, mild aortic stenosis, [id number] gradient across aortic valve 10 mmHg and now the patient admitted for staged PTCA of LAD and circumflex. At that time, the cardiac catheterization revealed circumflex 90% of the mid segment and LAD 80% stenosis on mid segment are noted. LV shows ejection fraction 60%, EDP was in the range of 15 mmHg and 10-mm gradient across the aortic valve noted on pullback. At that time, patient underwent PTCA of distal RCA including RPDA and mid RCA. Prior to that patient had a stress test done because of risk stratification on 03/25/2018 that revealed abnormal myocardial perfusion study, partial reversible ischemia, ejection fraction of 68%. As mentioned previously that patient had peripheral angiogram and atherectomy of right anterior tibial and left common iliac was done by Dr. Reed dated 03/14/2018, history of hypothyroidism, history of hypertension, history of BPH. SOCIAL HISTORY: Ex-smoker, used to do one and a half pack to two pack a day, more than 60 years ago, started at the age of 11 and quit 5 years ago. 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 Denies any history of alcohol abuse. FAMILY HISTORY: History of coronary artery disease in father, but he used to smoke and drink. CURRENT MEDICATIONS: Patient is taking oxycodone one tablet daily, Flomax 0.4 mg daily, mg daily, Lasix 40 mg daily, flaxseed one tablet mg daily, aspirin 81 mg daily. The patient had echocardiography done at [facility] dated 02/11/2018 that showed ejection fraction 65%, RV systolic pressure of 35, mild mitral regurgitation. REVIEW OF SYSTEMS: As per HPI. PHYSICAL EXAMINATION: VITAL SIGNS: Height of the patient 5 feet 2 inches and weight of the patient 175 pounds, body mass index 28 kg/m2. Rest of examination, temperature afebrile, heart rate 68, blood pressure 130/80. HEENT: PERRLA, intact. NECK: Supple. No carotid bruit or thyromegaly. CHEST: Clear to auscultation. HEART: S1 and S2 regular. ABDOMEN: Soft. EXTREMITIES: Clubbing and cyanosis negative. LABORATORY DATA: Blood workup pending. IMPRESSION AND PLAN: Echo shows preserved left ventricular function, trace to mild mitral regurgitation and tricuspid regurgitation; history cardiac catheterization because of abnormal stress test dated 03/27/2018 with percutaneous transluminal coronary angioplasty of right coronary artery, mid right coronary artery and distal right coronary artery with drug-eluting stent was done. Today, the patient admitted for a staged percutaneous transluminal coronary angioplasty of left anterior descending coronary artery and circumflex, mild aortic stenosis, history of severe peripheral artery disease, status post hysterectomy on 02/2018. Risks, benefits, and alternatives were discussed with the patient and patient agreeable to proceed for cardiac cath and further recommendation of the cardiac catheterization. We will follow with you. Thank you, Dr. Porter, for providing us the opportunity in taking care of Satya Shelton. Ginger Vasquez MD
[2018-04-25] MEDS ORDERED: Phenylephrine 10 mg/ml Inj ONE (06:59)
[2018-04-25] MEDS ORDERED: Lidocaine 2% Inj (20ml) ONE (06:59)
[2018-04-25] MEDS ORDERED: Eptifibatide 20 mg/10mL Inj IVP ONE (07:00)
[2018-04-25] MEDS ORDERED: Nitroglycerin 50mg in D5W 50 MG/250 ML BOTTLE IV ONE (07:00)
[2018-04-25] MEDS ORDERED: Iohexol 350mgl/ml 50 ML ONE (07:00)
[2018-04-25] MEDS ORDERED: Iodixanol 320 MG/ML 100 ML BOTTLE IV ONE (07:00)
[2018-04-25] MEDS ORDERED: Iodixanol 320 MG/ML 200 ML BOTTLE IV ONE (07:00)
[2018-04-25] MEDS ORDERED: DiphenhydrAMINE 50 mg/ml Inj ONE (07:26)
[2018-04-25] MEDS ORDERED: Famotidine 20mg/50ml 20 MG/50 ML BAG IVPB ONE (07:26)
[2018-04-25 07:33] VITALS: O2SAT 99
[2018-04-25] MEDS ORDERED: Midazolam 2 MG/2 ML VIAL ONE ×2 (07:34→07:51)
[2018-04-25 07:37] LABS: BASO # 0.02 K/mm3 (0.0-2.0); BASO % 0.3 % (0.0-3.0); EOS # 0.4 (0.0-0.7); EOS % 5.1 % (1.5-5.0); GRAN # 4.49 (1.4-6.5); HEMOGLOBIN 11.4 g/dL (14.0-18.0); LYMPH # 1.6 (1.2-3.4); LYMPH % 21.9 % (22.0-35.0); MEAN CELL VOLUME 88.1 fl (80.0-105.0); MEAN CORPUSCULAR HEMOGLOBIN 28.9 pg (25.0-35.0); MEAN CORPUSCULAR HGB CONC 32.9 g/dl (31.0-37.0); MONO # 0.7 (0.1-0.6); MONO % 9.7 % (1.0-6.0); RBC 3.94 10^6/uL (3.5-6.1); RED CELL DISTRIBUTION WIDTH 15.9 % (11.5-14.5); WHITE BLOOD COUNT 7.1 10^3/ul (4.5-11.0)
[2018-04-25 07:50] LABS: BLOOD UREA NITROGEN 16 mg/dL (7-21); CALCIUM 8.9 mg/dL (8.4-10.5); GFR AFRICAN-AMERICAN > 60; GFR NON-AFRICAN AMERICAN > 60; HDL CHOLESTEROL 38 mg/dL (29-60)
[2018-04-25 08:01] LABS: LDL CHOLESTEROL 116 mg/dL (0-129)
[2018-04-25 08:08] LABS: INR 1.06 (0.93-1.08); PARTIAL THROMBOPLASTIN TIME 29.4 Seconds (25.1-36.5); PROTHROMBIN TIME 12.2 SECONDS (9.4-12.5)
[2018-04-25] MEDS ORDERED: Sodium Chloride 0.9% 1,000 ML IV SCH (09:30)
--- NOTE | 2018-04-25 09:44 | CPOSTOP ---
DATE: 04/25/2018 CARDIOVASCULAR LAB POSTPROCEDURE NOTE DICTATING PHYSICIAN: Ginger Vasquez MD. MUTUAL FUND ACCOUNTANT: [facility] health type technician. TYPE OF ANESTHESIA USED: Moderate conscious sedation. Total dose given 2 mg of Versed, 100 mcg of fentanyl. Periodically started at 1 mg of Versed and 50 of fentanyl. PRE-PROCEDURE DIAGNOSES: Coronary artery disease, unstable angina, for stage percutaneous transluminal coronary angioplasty of left anterior descending and circumflex, had percutaneous transluminal coronary angioplasty of right coronary artery 4 weeks ago. PROCEDURE PERFORMED: Left heart catheterization and stenting of left anterior descending, stenting of circumflex. FINDINGS: Two-vessel disease. Patent stent in RCA. POST PROCEDURE CONDITION: Stable. VASCULAR ACCESS: Right femoral artery. CLOSURE DEVICE: Mynx. TOTAL RADIATION DOSE: 10892.4 milligray unit. TOTAL FLUORO TIME: 24.3 minutes. Ginger Vasquez MD
--- NOTE | 2018-04-25 12:55 | CARD ---
APPROVED REPORT EKG Measurement Heart [id number] IN 136P54 [id number] <Conclusion> Normal sinus rhythm Normal ECG
[2018-04-25 13:04] LABS: BASO # 0.01 K/mm3 (0.0-2.0); BASO % 0.1 % (0.0-3.0); EOS % 0.1 % (1.5-5.0); GRAN % 90.3 % (50.0-68.0); LYMPH # 0.6 (1.2-3.4); LYMPH % 8.6 % (22.0-35.0); MEAN CELL VOLUME 88.1 fl (80.0-105.0); MEAN CORPUSCULAR HEMOGLOBIN 28.4 pg (25.0-35.0); MEAN CORPUSCULAR HGB CONC 32.2 g/dl (31.0-37.0); MEAN PLATELET VOLUME 10.4 fl (7.0-11.0); MONO # 0.1 (0.1-0.6); MONO % 0.9 % (1.0-6.0); PLATELET COUNT 167 10^3/uL (120.0-450.0); RBC 3.88 10^6/uL (3.5-6.1); RED CELL DISTRIBUTION WIDTH 15.8 % (11.5-14.5); WHITE BLOOD COUNT 6.8 10^3/ul (4.5-11.0)
[2018-04-25 13:08] LABS: BLOOD UREA NITROGEN 15 mg/dL (7-21); CALCIUM 8.7 mg/dL (8.4-10.5); GFR AFRICAN-AMERICAN > 60; GFR NON-AFRICAN AMERICAN > 60
--- NOTE | 2018-04-25 13:22 | CARD ---
APPROVED REPORT Procedure(s) performed: Left Heart Catheterization PTCA with Stenting of Mid Lad with TAJ PTCA with Stenting of Mid circumflex with TAJ HISTORY The patient is a 78 year-old male with a history of : most recent EF: 55%. (EF Method: LVG), peripheral vascular disease, previous diagnostic cath, tobacco history() : The patient is a former smoker , previous PCI (The PCI date was 03/27/2018), for staged PTCA of LAD and Circumflex. INDICATION The indication(s) include : positive stress test, dyspnea. CASE TECHNIQUE The patient was brought electively to the Cardiac Catheterization Laboratory in a fasting state and was prepped and draped in a sterile manner. The right femoral groin was infiltrated with 2% Lidocaine subcutaneous anesthesia. A 6 Fr x 11 cm Lilian sheath was inserted into the right femoral artery without difficulty. Coronary angiography was performed using coronary diagnostic catheters. The left coronary system was accessed and visualized with a Guider,6 Fr JL 4 catheter. The right coronary system was accessed and visualized with a Guided ,6F JR 4 CATH DXT 100 CM catheter. The left ventricle was accessed and visualized with a 6F PIGTAIL 145 CATH DXT 110 CM catheter. Left ventriculogram was performed in ARAUZ projection. The patient tolerated the procedure well and there were no complications associated with the procedure. Vessel Analysis The patient's coronary anatomy is right dominant. The left main coronary artery is a medium size vessel with diffuse calcification noted throughout this vessel and without significant stenosis. There is a 20% stenosis in the ostial segment. The left main bifurcates to the left anterior descending and circumflex. The left anterior descending artery is a medium size vessel with diffuse calcification noted throughout this vessel and with significant stenosis. There is a 80% stenosis in the mid segment. The first diagonal branch is a small size vessel with diffuse calcification noted throughout this vessel and without significant stenosis. The second diagonal branch is a small size vessel with diffuse calcification noted throughout this vessel and without significant stenosis. The circumflex artery is a medium size vessel with diffuse calcification noted throughout this vessel and with significant stenosis. There is a 90-95% stenosis in the mid segment. The first obtuse marginal branch is a medium size vessel with diffuse calcification noted throughout this vessel and without significant stenosis. The second obtuse marginal branch is a small size vessel with diffuse calcification noted throughout this vessel and with significant stenosis. There is a 100% stenosis in the ostial segment. The third obtuse marginal branch is a medium size vessel with diffuse calcification noted throughout this vessel and without significant stenosis. The right coronary artery is a medium size vessel with diffuse calcification noted throughout this vessel and without significant stenosis. Patent stent Proximal to Mid segment and Distal RCA continued to R PDA The right posterior descending artery is a medium size vessel with diffuse calcification noted throughout this vessel and without significant stenosis. Patent stent continued from Distal RCA. The right posterolateral branch is a small size vessel with diffuse calcification noted throughout this vessel and without significant stenosis. Left Ventricle The left ventricle is normal in size with normal contractility. There was no cardiomyopathy. The left ventricular ejection fraction is estimated to be 55-60%. The left ventricular end diastolic pressure is 15-18 mmHg. There was no gradient across the aortic valve upon pullback. PCI Technique Lesion Anticoagulation was achieved with Heparin. Percutaneous coronary intervention was performed on the mid left anterior descending artery segment. The lesion stenosis prior to intervention was 80% with SOPHIE flow. A 6 Fr JL 4 Guide Catheter was used to engage the ostium. A Luge 182 Interventional Guidewire was used to cross the lesion. BALLOON DILATION A Balloon catheter 2.5 x 6 mm Trek RX was inserted and inflated up to 8.00atm for 8seconds. STENT DEPLOYMENT A drug-eluting stent STENT RESOLUTE HARDEEP 3.0 X 08 was inserted and inflated up to 14.00atm for 20seconds. Final angiography reveals 0 % stenosis with SOPHIE 3 flow. PCI Technique Lesion 2 Percutaneous Coronary Intervention was performed on the mid circumflex artery segment. The lesion stenosis prior to intervention was 90-95% with SOPHIE 1 flow. A 6 Fr JL 4 Guide Catheter was used to engage the ostium. A Luge 182 Interventional Guidewire was used to cross the lesion. BALLOON DILATION A Balloon catheter 2.0 x 15 mm Mini Trek RX was inserted and inflated up to 8.00atm for 15seconds. STENT DEPLOYMENT A drug-eluting stent STENT RESOLUTE HARDEEP 2.5 X22 was inserted and inflated up to 14.00atm for 15seconds. Final angiography reveals 0 % stenosis with SOPHIE 3 flow. Conclusion Successful PTCA with TAJ of Mid LAD and Mid Circumflex. Patent Stent IN Proximal to Mid RCA and distal RCA continued to R PDA. Preserverd LV Fx. EF-55-60%, EDP-15-18 mmof Hg. Recommendations Smoking Cessation Daily ASA with Plavix for at least one year Aggressive Medical TherapyCardiac Risk Reduction Program Weight Loss Reduction Program Monitor renal Fx, Hydration and repeat SMA-7 in one week with you. F/u stress test in 6 months to year to monitor Progression of CAD and Ensure patency of stents. CC; Dr. Joann Porter MD.
[2018-04-25 13:34] LABS: BASOPHIL 1 % (0.0-1.0); LYMPHOCYTE 12 % (22.0-35.0); NEUTROPHIL 87 % (50.0-70.0); PLATELET ESTIMATE NORMAL (NORMAL)
[2018-04-25 15:28] VITALS: BP 118/55; PULSE 74; RESP 18; TEMP 98
--- NOTE | 2018-04-25 16:22 | CARD ---
APPROVED REPORT EKG Measurement Heart [id number] GA 160P61 [id number] <Conclusion> Normal sinus rhythm Normal ECG
== END 2018-04-25 16:46 | disposition home or self-care (01) ==
LOC: CATH 06:29 → 2RNO 09:39 → CATH 16:46
PROVIDERS: ATTEND Internal Medicine Cardiovascular Disease
DX: I25.10 Atherosclerotic heart disease of native coronary artery without angina pectoris (principal); I73.9 Peripheral vascular disease, unspecified; N40.0 Benign prostatic hyperplasia without lower urinary tract symptoms; I10 Essential (primary) hypertension; E03.9 Hypothyroidism, unspecified; Z95.5 Presence of coronary angioplasty implant and graft; Z87.891 Personal history of nicotine dependence
CPT/HCPCS: 36415; 80048; 80061; 85025; 85175; 85610; 85730; 86850; 86900; 93005; 93458; 99152; 99153; C1725 ×3; C1760; C1769 ×3; C1874 ×2; C1887; C2629; C9600; C9601; J1200; J1327; J1644 ×2; J1940; J2250; J2930; J3010; J7030; J7040; Q9966; Q9967

== ENCOUNTER 2018-12-30 11:10 | Emergency (ER) | payer MEDICARE ==
[2018-12-30 11:10] VITALS: BMI 25.1
--- NOTE | 2018-12-30 12:20 | ED PDOC ---
Arrival/HPI - General Chief Complaint: Lower Extremity Problem/Injury Time Seen by Provider: 12/30/18 11:13 Historian: Patient - History of Present Illness Narrative History of Present Illness (Text): 12/30/18 11:13 Satya Shelton is a 78 year old male, with a past medical history of peripheral artery disease and stents, who presents to the emergency department with complaints of pain in both calves for about 4 weeks. Patient informs that symptoms are worse in the right leg. Patient states pain is worsened by ambulation. Patient saw his PMD this morning and was sent for evaluation in the emergency department. Patient denies any fevers, chills, nausea, vomiting, diarrhea, back pain, neck pain, dyspnea on exertion, cough, headache, dizziness, or any other complaint. Time/Duration: < month Symptom Onset: Gradual Symptom Course: Worsening Activities at Onset: Light Context: Home Past Medical History - Provider Review Nursing Documentation Reviewed: Yes - Infectious Disease Hx of Infectious Diseases: None - Cardiac Hx Pacemaker: No Other/Comment: cardiac stent x6 - Pulmonary Hx Respiratory Disorders: No - Neurological Hx Paralysis: No - HEENT Hx HEENT Disorder: No - Renal Hx Renal Disorder: No - Endocrine/Metabolic Hx Hypothyroidism: Yes - Hematological/Oncological Hx Blood Transfusions: No - Integumentary Hx Dermatological Disorder: Yes Other/Comment: cellulitis to right lower extremity - Musculoskeletal/Rheumatological Hx Musculoskeletal Disorders: Yes - Gastrointestinal Hx Gastrointestinal Disorders: No - Genitourinary/Gynecological Hx Genitourinary Disorders: Yes Other/Comment: BPH - Psychiatric Hx Emotional Abuse: No Hx Physical Abuse: No Hx Substance Use: No - Surgical History Other/Comment: R femoral stent. Thyroid Ablation - Anesthesia Hx Anesthesia Reactions: No Hx Malignant Hyperthermia: No - Suicidal Assessment Feels Threatened In Home Enviroment: No Family/Social History - Physician Review Nursing Documentation Reviewed: Yes Family/Social History: No Known Family HX Smoking Status: Never Smoked Hx Alcohol Use: No Hx Substance Use: No Allergies/Home Meds Allergies/Adverse Reactions: Allergies SEAFOOD Allergy (Uncoded 04/24/18 09:41) RASH Home Medications: Home Meds Medication Instructions Recorded Confirmed RX: Fish Oil/Dha/Epa [Fish Oil 1,200 mg PO DAILY 04/24/18 12/30/18 1,200 mg Fish Oil] RX: Flaxseed Oil [Flaxseed] 1 tab PO DAILY 04/24/18 12/30/18 RX: Furosemide [Lasix] 40 mg PO TID 04/24/18 12/30/18 RX: Potassium Chloride [Klor-Con 10 meq PO DAILY 04/24/18 12/30/18 Sprinkle] RX: oxyCODONE/Acetaminophen 1 tab PO QID PRN 04/24/18 04/25/18 [Percocet 5/325 mg Tab] Review of Systems - Physician Review All systems were reviewed & negative as marked: Yes - Review of Systems Constitutional: absent: Fevers, Night Sweats Respiratory: absent: SOB, Cough Cardiovascular: Calf Pain (both calves, worse in right). absent: Chest Pain Gastrointestinal: absent: Abdominal Pain, Diarrhea, Nausea, Vomiting Musculoskeletal: absent: Back Pain, Neck Pain Neurological: absent: Headache, Dizziness Physical Exam Vital Signs Reviewed: Yes Vital Signs Temp Pulse Resp BP Pulse Ox 12/30/18 11:22 97.3 F L 75 20 129/85 99 Temperature: Afebrile Blood Pressure: Normal Pulse: Regular Respiratory Rate: Normal Appearance: Positive for: Well-Appearing, Non-Toxic, Comfortable Pain Distress: None Mental Status: Positive for: Alert and Oriented X 3 - Systems Exam Head: Present: Atraumatic, Normocephalic Pupils: Present: PERRL Extroacular Muscles: Present: EOMI Conjunctiva: Present: Normal Mouth: Present: Moist Mucous Membranes Neck: Present: Normal Range of Motion Respiratory/Chest: Present: Clear to Auscultation, Good Air Exchange. No: Respiratory Distress, Accessory Muscle Use Cardiovascular: Present: Regular Rate and Rhythm, Normal S1, S2. No: Murmurs Abdomen: No: Tenderness, Distention, Peritoneal Signs Back: Present: Normal Inspection Upper Extremity: Present: Normal Inspection. No: Cyanosis, Edema Lower Extremity: Present: Other (right foot cool to the touch). No: Normal Inspection, Edema, NORMAL PULSES (No dopplerable pulses in right calf, dopplerable pulses in left) Neurological: Present: GCS=15, CN II-XII Intact, Speech Normal Skin: Present: Warm, Dry, Normal Color. No: Rashes Psychiatric: Present: Alert, Oriented x 3, Normal Insight, Normal Concentration Medical Decision Making ED Course and Treatment: 12/30/18 11:13 Impression: Patient is a 78 year old male who presents to the emergency department with worsening bilateral extremity pain. Plan: -- Labs -- CT A / P -- X-Ray L-S Spine -- US Duplex Lower Extremity -- US Duplex Non-Invasive -- Reassess and Disposition Progress: 12/30/18 11:20 Reviewed EKG, shows: NSR 67, No ST/T changes 12/30/18 16:[address] duggan pt has stent restenosis. plan on outpt angio. no rest symptoms only with amublating. - RAD Interpretation Radiology Orders: 12/30/18 11:53 LOWER EXT ART NON-INV COMPL [US] Urgent 12/30/18 11:54 DUPLEX LOWER EXT ART RT LMTD [US] Urgent - EKG Interpretation Interpreted by ED Physician: Yes Type: 12 lead EKG - Scribe Statement The provider has reviewed the documentation as recorded by the Scribe Kendrick Jones All medical record entries made by the Scribe were at my direction and personally dictated by me. I have reviewed the chart and agree that the record accurately reflects my personal performance of the history, physical exam, medical decision making, and the department course for this patient. I have also personally directed, reviewed, and agree with the discharge instructions and disposition. Disposition/Present on Arrival - Present on Arrival Any Indicators Present on Arrival: No History of DVT/PE: No History of Uncontrolled Diabetes: No Urinary Catheter: No History of Decub. Ulcer: No History Surgical Site Infection Following: None - Disposition Have Diagnosis and Disposition been Completed?: Yes Diagnosis: PVD (peripheral vascular disease) Disposition: HOME/ ROUTINE Disposition Time: 14:00 Condition: STABLE Discharge Instructions (ExitCare): Peripheral Artery Disease and Claudication Additional Instructions: return to er with worsneing. please follow up with your doctor. you are scheduled for angiogram on sunday 1130am Referrals: Yasir Duggan MD [Staff Provider] - Follow up with primary Forms: [employer] ([employer])
[2018-12-30 12:29] LABS: BASO # 0.03 K/mm3 (0.0-2.0); BASO % 0.4 % (0.0-3.0); EOS # 0.1 (0.0-0.7); EOS % 1.6 % (1.5-5.0); HEMOGLOBIN 13.2 g/dL (14.0-18.0); LYMPH # 1.9 (1.2-3.4); LYMPH % 26.9 % (22.0-35.0); MEAN CELL VOLUME 89.3 fl (80.0-105.0); MEAN CORPUSCULAR HEMOGLOBIN 29.5 pg (25.0-35.0); MEAN PLATELET VOLUME 10.4 fl (7.0-11.0); MONO # 0.5 (0.1-0.6); MONO % 6.8 % (1.0-6.0); RBC 4.48 10^6/uL (3.5-6.1); RED CELL DISTRIBUTION WIDTH 13.9 % (11.5-14.5); WHITE BLOOD COUNT 6.9 10^3/uL (4.5-11.0)
[2018-12-30 12:37] LABS: INR 1.17; PARTIAL THROMBOPLASTIN TIME 33.1 Seconds (26.9-38.3); PROTHROMBIN TIME 13.2 SECONDS (9.4-12.5)
[2018-12-30 12:39] LABS: ALB/GLOB RATIO 1.1 (1.1-1.8); ALBUMIN 4.6 g/dL (3.0-4.8); ALT/SGPT 15 U/L (7-56); AST/SGOT 25 U/L (17-59); BLOOD UREA NITROGEN 22 mg/dL (7-21); CALCIUM 9.6 mg/dL (8.4-10.5); GFR NON-AFRICAN AMERICAN 53
[2018-12-30 14:26] VITALS: BP 133/71; PULSE 84; RESP 18; TEMP 98.1; O2SAT 98
--- NOTE | 2018-12-30 17:08 | CARD ---
APPROVED REPORT Date of service: 12/30/2018 EKG Measurement Heart [id number] 152P63 [id number] <Conclusion> Normal sinus rhythm Normal ECG
--- NOTE | 2018-12-30 18:29 | US ---
Date of service: 12/30/2018 PROCEDURE: Duplex arterial ultrasound right SFA and popliteal arteries. HISTORY: rt SFA stent. check rt SFA and popliteal arteries COMPARISON: TECHNIQUE: FINDINGS: The distal right SFA stent is patent. Elevated velocities up to 545 cm/second are noted in the distal stent, consistent with in stent restenosis. The visualized portions the right popliteal artery are patent with a blunted antegrade waveform. IMPRESSION: 50-99 percent in stent restenosis in the distal right SFA stent
--- NOTE | 2018-12-30 18:33 | US ---
PROCEDURE: Lower extremity JONAH exam HISTORY: Severe peripheral vascular disease. Lifestyle limiting claudication and early rest pain on the right. Recent right lower extremity endovascular intervention. PHYSICIAN(S): Yasir Reed MD. FINDINGS: The right resting JONAH is not obtainable. The left resting ABIs severely abnormal, 0.26 The brachial systolic pressures are symmetric. There is a 54 mm difference between the arm and right high thigh pressure. There is a 68 mm difference between the arm and left high thigh pressure. Interestingly, the high thigh PVR waveforms are relatively normal. The pressure difference is a suggestive of aortoiliac disease. There is a 57 mm gradient across the right thigh and a 24 mm gradient across the left thigh. Calf PVR waveforms are moderately blunted. Findings are consistent with bilateral SFA disease. The ankle and metatarsal waveforms are severely blunted bilaterally the findings are consistent with bilateral tibial disease. IMPRESSION: 1. Severely abnormal ABIs at rest. 2. Bilateral SFA disease. 3. Aortoiliac disease. 4. Bilateral tibial disease. 5. If clinically indicated, further evaluation with CTA, MRA with gadolinium runoff, or conventional arteriography can be considered
== END 2018-12-30 14:28 | disposition home or self-care (01) ==
LOC: ED 11:10
DX: I73.9 Peripheral vascular disease, unspecified (principal); E03.9 Hypothyroidism, unspecified; N40.0 Benign prostatic hyperplasia without lower urinary tract symptoms; M79.661 Pain in right lower leg; M79.662 Pain in left lower leg

== ENCOUNTER 2019-01-06 11:17 | Day surgery (SDC) | payer MEDICARE ==
[2019-01-01 11:41] VITALS: BMI 30.1
[2019-01-06 12:30] VITALS: O2SAT 98
[2019-01-06 12:44] LABS: BLOOD UREA NITROGEN 17 mg/dL (7-21); CALCIUM 9.2 mg/dL (8.4-10.5); GFR NON-AFRICAN AMERICAN 58
[2019-01-06 12:48] LABS: BASO # 0.01 K/mm3 (0.0-2.0); BASO % 0.1 % (0.0-3.0); EOS # 0.1 (0.0-0.7); EOS % 1.5 % (1.5-5.0); HEMOGLOBIN 11.7 g/dL (14.0-18.0); LYMPH # 1.6 (1.2-3.4); LYMPH % 22.1 % (22.0-35.0); MEAN CELL VOLUME 88.9 fl (80.0-105.0); MEAN CORPUSCULAR HGB CONC 32.6 g/dl (31.0-37.0); MEAN PLATELET VOLUME 10.7 fl (7.0-11.0); MONO # 0.7 (0.1-0.6); MONO % 9.4 % (1.0-6.0); RBC 4.04 10^6/uL (3.5-6.1); WHITE BLOOD COUNT 7.2 10^3/uL (4.5-11.0)
[2019-01-06 12:52] LABS: INR 1.15; PARTIAL THROMBOPLASTIN TIME 35.9 Seconds (26.9-38.3)
[2019-01-06] MEDS ORDERED: Lidocaine 2% Inj (20ml) ONE (15:10)
[2019-01-06] MEDS ORDERED: Iodixanol 320 mg/ml 150 ml Bottle IV ONE ×2 (15:11→16:23)
[2019-01-06] MEDS ORDERED: Iodixanol 320 MG/ML 200 ML BOTTLE IV ONE (15:11)
[2019-01-06] MEDS ORDERED: Nitroglycerin 50mg in D5W 50 MG/250 ML BOTTLE IV ONE (15:11)
[2019-01-06] MEDS ORDERED: Midazolam 2 MG/2 ML VIAL ONE ×3 (15:40→16:10)
[2019-01-06] MEDS ORDERED: Oxycodone/Acetaminophen 5/325 mg Tab PO PRN (17:03)
[2019-01-06] MEDS ORDERED: Sodium Chloride 0.45% 1,000 ML IV SCH (17:15)
[2019-01-06 19:34] VITALS: BP 144/97; PULSE 65; RESP 18; TEMP 97.8
--- NOTE | 2019-01-07 11:28 | VASCULAR ---
Date of service: 01/06/2019 PROCEDURE: 1. Abdominal aortogram and bilateral lower extremity runoff with right selective views. 2. Long segment right SFA silver Hawk atherectomy and drug-eluting balloon angioplasty 3. Right popliteal artery drug-eluting balloon angioplasty 4. Right profunda femoral artery origin angioplasty HISTORY: Vasculopath. Ex-smoker. Previous bilateral lower extremity stents. Short distance claudication and early rest pain right foot. Right SFA stent restenosis. PHYSICIAN(S): Yasir Reed M.D. TECHNIQUE: The relative risks and indications of the procedure were explained to the patient and consent obtained. The patient was hydrated prior to the procedure and the appropriate labs drawn. The patient was placed supine on the arteriogram table and the left groin prepped and draped in the usual sterile fashion. Conscious sedation and monitoring were provided throughout the procedure by a nurse. Via a left common femoral artery approach, a 5 Kosovan sheath was placed in the right groin. Through the sheath and over a guidewire, a 5 Kosovan flush catheter was placed in the abdominal aorta at the level of the renal arteries and a PA DSA abdominal aortogram performed. The catheter was pulled down to the aortic bifurcation and bilateral oblique DSA pelvic arteriograms performed. Overlapping bilateral lower extremity DSA arteriograms were obtained from the inguinal ligaments to the ankles. A 0.035 angled Glidewire was advanced over the bifurcation and placed in the mid right SFA. A 7 Kosovan 45 cm destination sheath was placed in the right external iliac artery. Heparin 6000 units IV and nitroglycerin in 250 mcg aliquots were given. The diffuse disease throughout the right SFA and popliteal arteries was crossed with a 5 Kosovan catheter and angled Glidewire. Despite multiple attempts and various guidewires, the tibioperoneal occlusion and trifurcation could not be crossed. A 0.014 support wire was placed in the right popliteal artery. Silver Hawk atherectomy of the right SFA was performed with an LX catheter. 6-8 passes were obtained. An improved result was obtained. The superior extent in the distal right SFA was dilated with a 6 x 150 drug-eluting balloon. The proximal right SFA was dilated with a 7 mm x 200 angioplasty balloon. The right popliteal artery was dilated with a 5 mm x 80 mm drug-eluting balloon. The guidewire was redirected across the high-grade stenosis at the right profunda femoral artery origin. The right profunda femoral artery origin was dilated with a 6 mm x 4 cm balloon. Completion angiograms were obtained. The sheath was removed hemostasis obtained with a Perclose device FINDINGS: There are single renal arteries bilaterally which are widely patent and normal in appearance. The nephrograms are symmetric in appearance. The infrarenal abdominal aorta is widely patent without a radiographically significant stenosis. The aortic bifurcation is widely patent. The common and external iliac arteries are normal in appearance without a significant stenosis. The stent in the left common iliac artery is widely patent. The internal iliac arteries are patent bilaterally. Right lower extremity: The right common femoral artery is patent. The right profunda femoral artery has a critical stenosis at its origin. There is diffuse disease of the right SFA. Severe in stent restenosis is noted in the supera stent in the distal right SFA. Several moderate stenoses are noted in the right popliteal artery which is continuous. There is severe right trifurcation and tibial occlusive disease. All 3 tibial vessels are occluded proximally. There is reconstitution of the proximal right posterior tibial artery which occludes distally. There is reconstitution of the terminal right anterior tibial artery. Significant pedal occlusive disease is noted. Left lower extremity: Left common femoral artery is patent. The left profunda femoral artery is hypertrophied. There is a long segment occlusion of the multiple overlapping stents in the left SFA. There is reconstitution left popliteal artery above the patella. There is a focal stenosis in the left popliteal artery at the patella. There is 2 vessel runoff via the left anterior tibial and peroneal arteries. Left posterior tibial artery is occluded IMPRESSION: 1.Successful long segment right SFA silver Hawk atherectomy, drug-eluting balloon angioplasty and proximal balloon angioplasty. 2. Right profunda femoral artery origin angioplasty 3. Right popliteal artery drug-eluting balloon angioplasty. 4. Severe bilateral trifurcation and tibial occlusive disease, greater on the right than the left. The right trifurcation occlusive disease could not be crossed in an antegrade fashion. 5. If the patient's ischemic symptoms persist or progress, he may need to be evaluated for a right distal bypass.
== END 2019-01-06 21:30 | disposition home or self-care (01) ==
LOC: SDSVAS 11:17 → 2RSO 18:46 → SDSVAS 21:30
PROVIDERS: ATTEND Radiology Vascular & Interventional Radiology
DX: I70.221 Atherosclerosis of native arteries of extremities with rest pain, right leg (principal); T82.856A Stenosis of peripheral vascular stent, initial encounter; I11.0 Hypertensive heart disease with heart failure; I50.9 Heart failure, unspecified; E03.9 Hypothyroidism, unspecified; N40.0 Benign prostatic hyperplasia without lower urinary tract symptoms; Z87.891 Personal history of nicotine dependence; Y84.8 Other medical procedures as the cause of abnormal reaction of the patient, or of later complication, without mention of misadventure at the time of the procedure
CPT/HCPCS: 36415; 37225; 75625; 75710; 80048; 85025; 85610; 85730; 99152; 99153; C1714; C1725 ×6; C1760 ×2; C1769 ×6; C1887 ×2; C1894; J1644 ×2; J2250; J2405; J3010; J7030; Q9966; Q9967